=== PATIENT | female | born 1980 | race Caucasian/White ===

== ENCOUNTER 2018-06-01 13:35 | Emergency (ER) | payer MEDICAID, SELFPAY ==
[2018-06-01 13:42] VITALS: BP 137/98; PULSE 97; RESP 97; TEMP 36.6; O2SAT 97
[2018-06-01] MEDS: Normal Saline 1,000 ML 1000 ML IV (14:04)
[2018-06-01] MEDS: Ketorolac 30 MG/ML VIAL IM (14:07)
[2018-06-01 14:13] LABS: Abs Immature Grans 0.02 k/cumm (0.0-0.09); Absolute Basophil Count 0.04 k/cumm (0.0-0.2); Absolute Eosinophil Count 0.09 k/cumm (0.0-0.7); Absolute Lymphocyte Count 1.61 k/cumm (1.2-3.4); Absolute Monocyte Count 0.67 k/cumm (0.11-0.7); Absolute Neutrophil Count 7.42 k/cumm (1.2-6.7); Basophils % 0.4; Eosinophils % 0.9; HCT 34.5 % (36.0-46.0); Immature Grans % 0.2; Lymphocytes % 16.3; Mean Corp. HGB Concentration 31.9 g/dL (32.0-36.0); Mean Corpuscular Hemoglobin 24.7 pg (27.0-33.0); Mean Corpuscular Volume 77.5 fL (80-95); Mean Platelet Volume 9.9 fL (8.0-11.0); Monocytes % 6.8; Neutrophils % 75.4; Platelet Count 268 x1000/uL (130-400); RBC 4.45 m/cumm (4.00-5.20); RBC Distribution Width 12.6 % (11.7-14.6); White Blood Cell Count 9.85 k/cumm (4.4-10.8)
--- NOTE | 2018-06-01 14:16 | NUR.NOTE ---
Nursing Note:Pt off unit to CT. IV established. ambulated without difficulty. reports severe neck pain, mild nausea. medicated with toradol. will continue to monitor.
--- NOTE | 2018-06-01 14:22 | DI.CT_ITS ---
SYMPTOMS/DIAGNOSIS: SEVERE MIDLINE NECK PAIN AND HEADACHE S/P FALL [address] C-SPINE CT: CRANIAL CT: The study was carried out at 2:15 p.m. on 06/01/2018. The noncontrast enhanced cranial CT reveals no evidence of an intra/extra-axial hemorrhage, fluid collection, mass or edema. The ventricles are normal. The midline is preserved. The alatorre-white matter differentiation is intact throughout the brain. There is no evidence of a skull fracture. No sinus or mastoid air cell pathology is evident. SUMMARY: No evidence of acute intracranial abnormality. C-SPINE: The C-spine CT was carried out according to the usual protocol. There is straightening of the normal cervical lordosis. The vertebral bodies are intact. There is no evidence of gross disc space narrowing. There is no evidence of a fracture or subluxation. The posterior elements and facet joints are intact. The neural canal is widely patent throughout. The odontoid is intact and is closely applied to the anterior arch of C1. The prevertebral soft tissues are unremarkable. SUMMARY: No evidence of an acute fracture or subluxation. There is straightening of the normal cervical lordosis, which may be seen in muscular spasm.
[2018-06-01 14:26] LABS: ALT 19 U/L (12-78); AST 13 U/L (15-37); Albumin 3.9 g/dL (3.4-5.0); Alkaline Phosphatase 66 U/L (46-116); Anion Gap 7.9 mmol/L (3-11); BUN 14 mg/dL (7-18); Bilirubin, Total 0.3 mg/dL (0.2-1.0); CO2 28.1 mmol/L (21.0-32.0); CREATININE 0.69 mg/dL (0.55-1.02); Calcium 8.8 mg/dL (8.5-10.1); Chloride 101 mmol/L (98-107); Glucose 86 mg/dL (70-100); Potassium 3.5 mmol/L (3.5-5.1); Sodium 137 mmol/L (136-145); Total Protein 7.6 g/dL (6.4-8.2)
--- NOTE | 2018-06-01 14:29 | W.ED.GENAD ---
Discharge Plan Disposition Patient Disposition: HOME Condition: Good Discharge Details Chief Complaint: GenMedical Clinical Impression: Meningitis, viral, Headache, URI (upper respiratory infection) Primary Care Provider: Radha Mike ED Provider: [place] Stroud Home Meds and New Rx's Prescriptions: New acetaminophen [Mapap Extra Strength] 500 MG tablet 1,000 mg PO Q6H 5 Days Qty: 60 RF: 0 ibuprofen [Motrin IB] 200 MG tablet 600 mg PO Q6H 5 Days Qty: 60 RF: 0 cyclobenzaprine 5 mg tablet 5 mg PO TID PRN (Reason: muscle spasm) Qty: 16 RF: 0 Discharge Instructions Instructions: Viral Syndrome (ED), General Headache (ED) Additional Instructions: Please drink 10-12 cups of water per day. Please take Tylenol Motrin as needed for the pain. Please use a heating pad for your neck pain. If you notice any change or worsening in your symptoms please have a low threshold for return for reevaluation .if you notice any worsening of your symptoms, or any new symptoms such as vomiting, diarrhea, fever, chills, shortness of breath, chest pain, numbness, weakness, or fainting , please return immediately to the emergency department for reevaluation. Please follow up with your primary care provider as soon as possible for reassessment and reevaluation. As always, it was a pleasure participating in your medical care today. Referrals: Radha iMke [Primary Care Provider] - Discharge Data Discharge Date/Time-TO BE ENTERED AT DEPARTURE: 06/01/18 17:51 Medical Decision Making This is a 37-year-old female with past medical history of kidney stones who presents today for evaluation of neck pain and upper respiratory infection symptoms. Symptoms have been present for the last 4 days for her URI symptoms however her neck pain started 3 days ago. She did have a fall a week ago but none of her pain or symptoms began until after the URI symptoms started. Physical exam demonstrates concerning nuchal tenderness, and some mild neck stiffness. There are no skin lesions suggestive of meningococcemia. She is afebrile. Because of her fall we will get a CT of the head to rule out any acute bleed or fracture as the initial cause of her symptoms. However my differential is certainly high risk for meningitis with bacterial versus viral, more likely viral. We will rehydrate, control her pain, and perform a lumbar puncture for further evaluation. 4:[address] scan result was relayed to me by the radiologist that there is no acute process of the CT head or neck. Patient's laboratory workup demonstrates no significant white count, and her remaining labs are otherwise benign. However the patient had persistent pain after the Toradol, and fluids. We did elect to perform the lumbar puncture. Lumbar puncture was performed without complication or incident. Pending results now. 7:00 PM Lumbar puncture results have returned, Tube 1 demonstrated 1 WBC and 0 RBCs. Glucose was within normal limits, protein was within normal limits. Cultures will be sent. CSF fluid results are consistent with bacterial or fungal meningitis. Questionable mild versus minimal viral meningitis. As noted in the procedure note for the LP there was a small amount of blood which I feel is most likely secondary to an iatrogenic cause and atraumatic component of the lumbar puncture. It is also clinically inconsistent with a subarachnoid hemorrhage as there are 0 RBCs in the initial tube, and xanthochromia is negative. Additionally I feel that a sub-arachnoid hemorrhage is clinically inconsistent with the patient's current clinical picture as she has had a notable improvement of her headache with NSAIDs, and she no longer shows significant neck stiffness. In addition to this the patient CT scan is negative for any signs of acute bleed or other significant abnormality. Tube 4 also demonstrates 1525 RBCs to 6 WBCs, which would be a ratio clinically inconsistent with bacterial meningitis per recent literature. Patient's WBC count demonstrates no elevation, no evidence of bandemia, electrolytes are normal, renal function is normal. On reevaluation the patient's neck stiffness and headache is notably improved. I feel that her symptoms are most likely multifactorial. I do feel that she is suffering from an upper respiratory infection, most likely viral in nature especially with the reassuring WBC count, no evidence of bandemia in conjunction with being afebrile and having no tachycardia. The neck stiffness and mild headache that she has feeling may be secondary to this viral illness, versus a very mild subclinical viral meningitis, versus muscle spasms secondary to dehydration and illness. The patient is not on any control. She shows no neurologic deficits, and her signs and symptoms at this time are clinically inconsistent with a dural venous sinus thrombosis. She has no significant or severe facial pressure, facial pain, and the headache although present is not severe or debilitating. With a reassuring laboratory workup, reassuring vital signs, reassuring clinical picture at this time I feel that she can be safely discharged home with very close follow-up, a low threshold for return if her symptoms worsen or change, and instructions for Tylenol, Motrin, hydration, heating pad and a mild muscle relaxant for her neck spasm. I have extensively reviewed the treatment plan and discharge instructions with the patient and their family. I have addressed all patient concerns at this time. The patient and family was made aware of what symptoms to monitor for that would warrant a return to the emergency department. Discussed the plan with the patient and family, they demonstrate verbal understanding and agreement with our assessment and plan at this time. CRANIAL CT: The study was carried out at 2:15 p.m. on 06/01/2018. The noncontrast enhanced cranial CT reveals no evidence of an intra/extra-axial hemorrhage, fluid collection, mass or edema. The ventricles are normal. The midline is preserved. The alatorre-white matter differentiation is intact throughout the brain. There is no evidence of a skull fracture. No sinus or mastoid air cell pathology is evident. SUMMARY: No evidence of acute intracranial abnormality. C-SPINE: The C-spine CT was carried out according to the usual protocol. There is straightening of the normal cervical lordosis. The vertebral bodies are intact. There is no evidence of gross disc space narrowing. There is no evidence of a fracture or subluxation. The posterior elements and facet joints are intact. The neural canal is widely patent throughout. The odontoid is intact and is closely applied to the anterior arch of C1. The prevertebral soft tissues are unremarkable. SUMMARY: No evidence of an acute fracture or subluxation. There is straightening of the normal cervical lordosis, which may be seen in muscular spasm. Procedure: Lumbar Puncture Indication: Altered Mental Status/Headache A time-out was completed verifying correct patient, procedure, site, positioning, and special equipment if applicable. The patient was placed in the LEFT lateral decubitus position in a semi- position with help from the nursing staff. The area was cleansed and draped in usual sterile fashion. 1% lidocaine was used anesthetize the surrounding skin area. A 20-gauge 3.5-inch spinal needle was placed in the L4-L5 interspace. Clear cerebral spinal fluid was obtained. Four tubes were filled with 4 mL of CSF. These were sent for the usual tests, including 1 tube to be held for further analysis if needed. Of note the first 3 tubes showed no evidence of blood, however when the fourth tube was being filled the flow slowly decreased and eventually stopped before 1 mL was acquired. The needle was then rotated 25 degrees in a counterclockwise fashion, and an effort to obtain additional CSF. Unfortunately when this occurred a very small amount of blood tinge was noted in the CSF fluid. I feel that this is most likely iatrogenic. Estimated Blood Loss: <1ml The patient tolerated the procedure well and there were no complications. HPI General Date/Time Provider Initiated Documentation: 06/01/18 13:36. HPI Narrative: This is a pleasant 37-year-old female with no significant past medical history except for multiple kidney stones who presents today with severe headache, neck pain and stiffness, cough, and upper respiratory symptoms for the last 4 days. She denies any fever but does admit to occasional chills. She states that one week ago she did fall and hit her head but had no significant pain or neck stiffness after that. Her neck pain began 3 days ago which was 1 day after her upper respiratory infection symptoms started. She does admit to a runny nose, cough is nonproductive. She denies any hemoptysis, shortness of breath, or significant chest pain. She denies any numbness tingling or weakness. She denies any vision changes. Her headache she states is mild to moderate in nature. Symptoms are made worse with movement of the neck and walking. Improved by nothing. Patient denies any IV or illicit drug use. She denies any other modifying factors. Related Data Home Medications Medication Instructions Recorded Confirmed acetaminophen [Mapap Extra 1,000 mg PO Q6H 5 Days #60 tab 06/01/18 Strength] cyclobenzaprine 5 mg PO TID PRN #16 tab 06/01/18 ibuprofen [Motrin Ib] 600 mg PO Q6H 5 Days #60 tab 06/01/18 Previous Rx's Medication Instructions Recorded acetaminophen [Mapap Extra 1,000 mg PO Q6H 5 Days #60 tab 06/01/18 Strength] cyclobenzaprine 5 mg PO TID PRN #16 tab 06/01/18 ibuprofen [Motrin Ib] 600 mg PO Q6H 5 Days #60 tab 06/01/18 Allergies Allergy/AdvReac Type Severity Reaction Status Date / Time morphine Allergy Severe Difficulty Unverified 03/21/17 09:21 Breathing, Hives oxycodone Allergy Itching Unverified 06/01/18 13:47 oxybutynin AdvReac Severe STOPPED Unverified 03/21/17 09:25 ME FROM URINATING tramadol AdvReac Intermediate BRUISES Unverified 03/21/17 09:25 UNDER SKIN General Stated Complaint: GenMedical CIRO: 2 Review of Systems Review of Systems All systems reviewed & are unremarkable except as noted in HPI and below PFSH Social History Smoking/Tobacco Use Status: Never Exam Narrative Exam Narrative: 1.Const: Well-nourished, Well-developed, appearing stated age 2.Eyes: PERRL, no conjunctival injection, and symmetrical lids. No evidence of facial or periorbital swelling. 3.ENT: Atraumatic external nose and ears. Moist MM. Neck: Symmetric, trachea midline, No thyromegaly. Notable neck stiffness, pain at the occiput. Worse when jumping or dropping on her heels. Pain with flexion. No midline cervical tenderness. No anterior cervical lymphadenopathy. No significant erythema in the posterior oropharynx. Negative Kernig's and Brudzinski's. 4.CVS: +S1/S2, No murmurs or gallops. Peripheral pulses 2+ and equal in all extremities. Brisk capillary refill in all extremities. 5.RESP: Unlabored respiratory effort. Clear to auscultation bilaterally. No wheezes rales or rhonchi 6.GI: Soft, Nontender/Nondistended, No hepatosplenomegaly. No guarding or rebound. 7.MSK: Normocephalic/Atraumatic, Extremities w/o deformity or ttp No cyanosis or clubbing, Normal movement of all extremities 8.Skin: Warm, Dry. No rashes or lesions. 9.Neuro: well surveying engineer II-XII grossly intact. Sensation grossly intact, no focal neurologic deficits. All 6 cardinal planes of vision are fully intact. No evidence of rotatory or vertical nystagmus. The patient demonstrated a normal restgm-dmeo-gljkak, good dexterity. There was no evidence of dysdiadochokinesia. Patient was able to ambulate without difficulty. There was no wide-based gait. Romberg, and axyz-jb-aewh are both normal on testing. Sensation was intact bilaterally as well as muscle strength bilaterally for all extremities. Patient was able to verbalize butter cup with no slurring, or miss pronunciation. 10.Psych: (AAO) x3. Appropriate mood and affect Course Vital Signs Temperature 36.6 C 06/01/18 13:42 Pulse 97 H 06/01/18 13:42 Respiratory Rate 97 H 06/01/18 13:42 Blood Pressure 137/98 H 06/01/18 13:42 Pulse Oximetry 97 06/01/18 13:42 Temperature 36.6 C 06/01/18 13:42 Pulse 97 H 06/01/18 13:42 Respiratory Rate 97 H 06/01/18 13:42 Respiratory Effort Non-Labored 06/01/18 14:15 Blood Pressure 137/98 H 06/01/18 13:42 Blood Pressure Position Sitting 06/01/18 13:42 Pulse Oximetry 97 06/01/18 13:42 Oxygen Delivery Method Room Air 06/01/18 13:42 Oxygen Flow Rate 0 06/01/18 13:42 Pain Level 10 06/01/18 13:42 Lab/Test Results Lab/Test Results: 06/01/18 13:53 Nasopharynx Influenza Types A,B Antigen - Final 06/01/18 13:53 Pharynx Streptococcus Screen (LIVE) - Pending Laboratory Tests Range/Units 06/01/18 06/01/18 14:00 14:00 WBC (4.4-10.8) k/cumm 9.85 RBC (4.00-5.20) m/cumm 4.45 Hgb (12.0-15.5) g/dL 11.0 L Hct (36.0-46.0) % 34.5 L MCV (80-95) fL 77.5 L MCH (27.0-33.0) pg 24.7 L MCHC (32.0-36.0) g/dL 31.9 L RDW (11.7-14.6) % 12.6 Plt Count (130-400) x1000/uL 268 MPV (8.0-11.0) fL 9.9 Immature Gran % 0.2 Neutrophils % 75.4 Lymphocytes % 16.3 Monocytes % 6.8 Eosinophils % 0.9 Basophils % 0.4 Absolute Neutrophils (1.2-6.7) k/cumm 7.42 H Absolute Lymphocytes (1.2-3.4) k/cumm 1.61 Absolute Monocytes (0.11-0.7) k/cumm 0.67 Absolute Eosinophils (0.0-0.7) k/cumm 0.09 Absolute Basophils (0.0-0.2) k/cumm 0.04 Sodium (136-145) mmol/L 137 Potassium (3.5-5.1) mmol/L 3.5 Chloride (98-107) mmol/L 101 Carbon Dioxide (21.0-32.0) mmol/L 28.1 Anion Gap (3-11) mmol/L 7.9 BUN (7-18) mg/dL 14 Creatinine (0.55-1.02) mg/dL 0.69 Estimated GFR/1.73 m2 (mL/min/1.73m2) >= 60.00 Glucose (70-100) mg/dL 86 Calcium (8.5-10.1) mg/dL 8.8 Total Bilirubin (0.2-1.0) mg/dL 0.3 AST (15-37) U/L 13 L ALT (12-78) U/L 19 Alkaline Phosphatase (46-116) U/L 66 Total Protein (6.4-8.2) g/dL 7.6 Albumin (3.4-5.0) g/dL 3.9 POC Strep Test-NAA(Rapid) Start: 06/01/18 13:47 Freq: .Rapid Strep Test Status: Active Protocol: Document 06/01/18 14:03 [facility] (Rec: 06/01/18 14:03 [facility] [id number]) Strep test-NAA(Rapid)-POC POC-Strep test-NAA (Rapid) Negative POC-Strep test-NAA (Rapid) Negative
--- NOTE | 2018-06-01 15:57 | NUR.NOTE ---
Nursing Note: Assisted MD Stroud with LP procedure. patient tolerated well. Pt in no acute distress. will continue to monitor.
[2018-06-01 16:05] LABS: Glucose (CSF) 54 mg/dL (40-70); Total Protein (CSF) 35 mg/dL (15-45)
[2018-06-01 16:44] LABS: Clarity Clear; WBC 6 /mm3 (0-5); Xanthochromia Absent
[2018-06-01 16:45] LABS: Differential CSF: Performed; Neutrophils CSF 65 % (0-2); RBC 1525 /mm3 (0-5); Tube # 4
[2018-06-01 16:46] LABS: Lymphocytes CSF 32 % (63-99); Monocyte/Macrophage CSF 3 % (3-37)
[2018-06-01 16:48] LABS: RBC Tube#1 CSF 0 /mm3 (0-5)
[2018-06-01 17:50] VITALS: BP 129/84; PULSE 90; RESP 18; TEMP 36.9; O2SAT 99
== END 2018-06-01 17:51 | disposition home or self-care (01) ==
PROVIDERS: Emergency Provider Student in an Organized Health Care Education/Training Program; PCP Nurse Practitioner Family
DX: A87.9 Viral meningitis, unspecified (principal); J06.9 Acute upper respiratory infection, unspecified; S09.90XA Unspecified injury of head, initial encounter; W01.10XA Fall on same level from slipping, tripping and stumbling with subsequent striking against unspecified object, initial encounter
CPT/HCPCS: 36415; 62270; 80053; 82945; 87449; 87880; 89050; 89051; 96360; 96372; 99285; 70450; 72125; 84157; 85025; 87070; 87081; 87205; 99284; J1885

== ENCOUNTER 2018-06-11 21:24 | Outpatient (REF) | payer MEDICAID, SELFPAY ==
[2018-06-11 21:46] LABS: Iron 17 ug/dL (50-175); Total Iron Binding Capacity 467 ug/dL (250-450); Transferrin Sat 4 % (15-50)
[2018-06-11 22:00] LABS: Ferritin 6 ng/mL (8-388)
== END 2018-06-11 21:44 ==
LOC: NCHCN 21:24
PROVIDERS: PCP Nurse Practitioner Family; Visit Provider Nurse Practitioner Family
DX: R01.1 Cardiac murmur, unspecified (principal); R51 Headache; D50.9 Iron deficiency anemia, unspecified; R55 Syncope and collapse; L40.9 Psoriasis, unspecified
CPT/HCPCS: 82728; 83540; 83550

== ENCOUNTER 2018-07-16 14:28 | Outpatient (CLI) | payer MEDICAID, SELFPAY ==
[2018-07-16 14:53] LABS: Abs Immature Grans 0.02 k/cumm (0.0-0.09); Absolute Basophil Count 0.04 k/cumm (0.0-0.2); Absolute Eosinophil Count 0.05 k/cumm (0.0-0.7); Absolute Lymphocyte Count 1.62 k/cumm (1.2-3.4); Absolute Monocyte Count 0.52 k/cumm (0.11-0.7); Absolute Neutrophil Count 3.73 k/cumm (1.2-6.7); Basophils % 0.7; Eosinophils % 0.8; HGB 11.1 g/dL (12.0-15.5); Immature Grans % 0.3; Lymphocytes % 27.1; Mean Corp. HGB Concentration 30.8 g/dL (32.0-36.0); Mean Corpuscular Hemoglobin 22.6 pg (27.0-33.0); Mean Corpuscular Volume 73.2 fL (80-95); Mean Platelet Volume 10.3 fL (8.0-11.0); Monocytes % 8.7; Neutrophils % 62.4; Platelet Count 249 x1000/uL (130-400); RBC 4.92 m/cumm (4.00-5.20); White Blood Cell Count 5.98 k/cumm (4.4-10.8)
[2018-07-16 15:18] LABS: Diff Comment RBC Morph Reviewed; Microcytosis 1+
[2018-07-16 15:19] LABS: Poikilocytes 1+
[2018-07-16 15:50] LABS: Iron 16 ug/dL (50-175); Total Iron Binding Capacity 497 ug/dL (250-450); Transferrin Sat 3 % (15-50)
[2018-07-16 16:12] LABS: BUN 8 mg/dL (7-18); CREATININE 0.76 mg/dL (0.55-1.02); Calcium 9.3 mg/dL (8.5-10.1); Chloride 104 mmol/L (98-107); Ferritin 6 ng/mL (8-388); Glucose 88 mg/dL (70-100); Potassium 3.7 mmol/L (3.5-5.1); Sodium 141 mmol/L (136-145)
[2018-07-16 16:23] LABS: D-Dimer 246 ng/mlFEU (<500)
[2018-07-16 16:38] LABS: NT-proBNP 47 pg/mL
== END 2018-07-16 14:48 ==
PROVIDERS: PCP Nurse Practitioner Family; Visit Provider Nurse Practitioner Family
DX: D50.9 Iron deficiency anemia, unspecified (principal); R06.02 Shortness of breath; R06.01 Orthopnea; R51 Headache; K30 Functional dyspepsia; F41.8 Other specified anxiety disorders; R55 Syncope and collapse; L40.9 Psoriasis, unspecified
CPT/HCPCS: 36415; 80048; 82728; 83540; 83550; 83880; 85025; 85379

== ENCOUNTER 2018-08-16 14:38 | Outpatient (REF) | payer MEDICAID, SELFPAY ==
[2018-08-16 21:34] LABS: HCT 36.3 % (36.0-46.0); HGB 11.1 g/dL (12.0-15.5); Mean Corp. HGB Concentration 30.6 g/dL (32.0-36.0); Mean Corpuscular Hemoglobin 22.4 pg (27.0-33.0); Mean Corpuscular Volume 73.3 fL (80-95); Mean Platelet Volume 11.2 fL (8.0-11.0); Platelet Count 274 x1000/uL (130-400); RBC 4.95 m/cumm (4.00-5.20); RBC Distribution Width 16.4 % (11.7-14.6); White Blood Cell Count 7.64 k/cumm (4.4-10.8)
[2018-08-16 21:48] LABS: Iron 31 ug/dL (50-175); Total Iron Binding Capacity 458 ug/dL (250-450); Transferrin Sat 7 % (15-50)
[2018-08-16 22:20] LABS: Ferritin 7 ng/mL (8-388)
== END 2018-08-16 14:58 ==
LOC: NCHCN 14:38
PROVIDERS: PCP Nurse Practitioner Family; Visit Provider Nurse Practitioner Family
DX: F50.9 Eating disorder, unspecified (principal); K30 Functional dyspepsia; R06.02 Shortness of breath; R51 Headache; R00.2 Palpitations; R55 Syncope and collapse
CPT/HCPCS: 85027; 82728; 83540; 83550

== ENCOUNTER 2020-01-03 17:56 | Outpatient (REF) | payer MEDICAID, SELFPAY ==
[2020-01-03 21:34] LABS: Abs Immature Grans 0.01 10^3/uL (0.0-0.06); Absolute Basophil Count 0.07 10^3/uL (0.0-0.2); Absolute Eosinophil Count 0.05 10^3/uL (0.0-0.7); Absolute Lymphocyte Count 1.53 10^3/uL (1.2-3.4); Absolute Monocyte Count 0.31 10^3/uL (0.1-0.8); Absolute Neutrophil Count 3.33 10^3/uL (1.2-6.7); Basophils % 1.3; Eosinophils % 0.9; HGB 8.4 g/dL (11.2-15.7); Immature Grans % 0.2; Lymphocytes % 28.9; MCH 19.8 pg (27.0-33.0); MCV 68.4 fL (80-95); MPV 10.2 fL (8.0-11.0); Monocytes % 5.8; Neutrophils % 62.9; Platelet Count 392 10^3/uL (130-400); RBC 4.24 10^6/uL (3.93-5.22); RDW 15.4 % (11.7-14.6); Reticulocyte 0.7 % (0.5-2.4)
[2020-01-03 22:05] LABS: Ferritin 4 ng/mL (8-252)
[2020-01-03 22:07] LABS: Iron 12 ug/dL (50-170); Total Iron Binding Capacity 454 ug/dL (250-450); Transferrin Sat 3 % (15-50)
== END 2020-01-03 18:16 ==
LOC: NCHCN 17:56
PROVIDERS: PCP Nurse Practitioner Family; Visit Provider Physician Assistant
DX: D50.9 Iron deficiency anemia, unspecified (principal); E04.9 Nontoxic goiter, unspecified; R13.10 Dysphagia, unspecified
CPT/HCPCS: 82728; 83540; 83550; 85025; 85045

== ENCOUNTER 2020-03-30 14:32 | Outpatient (REF) | payer MEDICAID, SELFPAY ==
[2020-03-30 20:59] LABS: Abs Immature Grans 0.01 10^3/uL (0.0-0.06); Absolute Basophil Count 0.05 10^3/uL (0.0-0.2); Absolute Eosinophil Count 0.04 10^3/uL (0.0-0.7); Absolute Lymphocyte Count 1.67 10^3/uL (1.2-3.4); Absolute Monocyte Count 0.28 10^3/uL (0.1-0.8); Absolute Neutrophil Count 3.24 10^3/uL (1.2-6.7); Basophils % 0.9; Eosinophils % 0.8; HGB 8.5 g/dL (11.2-15.7); Immature Grans % 0.2; Lymphocytes % 31.6; MCH 19.1 pg (27.0-33.0); MCHC 28.3 % (32.0-36.0); MCV 67.4 fL (80-95); MPV 10.2 fL (8.0-11.0); Monocytes % 5.3; Neutrophils % 61.2; Nucleated RBC 0 %; Platelet Count 393 10^3/uL (130-400); RBC 4.45 10^6/uL (3.93-5.22); RDW 16.7 % (11.7-14.6); RDW-SD 39.7 fL; Reticulocyte 0.9 % (0.5-2.4); WBC 5.29 10^3/uL (4.4-10.8)
[2020-03-30 21:16] LABS: Diff Comment RBC Morph Reviewed
[2020-03-30 21:18] LABS: Hypochromasia 1+; Microcytosis 2+; Poikilocytes 1+
[2020-03-30 21:24] LABS: ALT 21 U/L (14-59); AST 13 U/L (15-37); Albumin 4.2 g/dL (3.4-5.0); Alkaline Phosphatase 56 U/L (46-116); Anion Gap 7.7 mmol/L (3-11); BUN 10 mg/dL (7-18); Bilirubin, Total 0.3 mg/dL (0.2-1.0); CO2 27.3 mmol/L (21.0-32.0); CREATININE 0.71 mg/dL (0.55-1.02); Chloride 104 mmol/L (98-107); Glucose 75 mg/dL (74-106); Potassium 3.9 mmol/L (3.5-5.1); Sodium 139 mmol/L (136-145); Total Protein 7.3 g/dL (6.4-8.2)
[2020-03-30 21:41] LABS: Iron 10 ug/dL (50-170); Total Iron Binding Capacity 458 ug/dL (250-450); Transferrin Sat 2 % (15-50)
[2020-04-01 09:53] LABS: Transferrin 361 mg/dL (201-352)
== END 2020-03-30 14:52 ==
LOC: NCHCN 14:32
PROVIDERS: PCP Nurse Practitioner Family; Visit Provider Nurse Practitioner Family
DX: D50.9 Iron deficiency anemia, unspecified (principal); N92.0 Excessive and frequent menstruation with regular cycle; R13.10 Dysphagia, unspecified; F41.8 Other specified anxiety disorders
CPT/HCPCS: 80053; 83540; 83550; 84466; 85025; 85045

== ENCOUNTER 2020-04-24 02:47 | Outpatient (CLI) | payer MEDICAID, SELFPAY ==
[2020-04-24 17:09] LABS: Prothrombin Time 10.5 sec (9.3-11.0)
[2020-04-24 17:10] LABS: Abs Immature Grans 0.01 10^3/uL (0.0-0.06); Absolute Basophil Count 0.05 10^3/uL (0.0-0.2); Absolute Eosinophil Count 0.06 10^3/uL (0.0-0.7); Absolute Lymphocyte Count 1.79 10^3/uL (1.2-3.4); Absolute Monocyte Count 0.46 10^3/uL (0.1-0.8); Absolute Neutrophil Count 4.16 10^3/uL (1.2-6.7); Basophils % 0.8; Eosinophils % 0.9; HCT 28.8 % (36.0-46.0); Immature Grans % 0.2; Lymphocytes % 27.4; MCH 18.1 pg (27.0-33.0); MCHC 27.8 % (32.0-36.0); MCV 65.2 fL (80-95); MPV 9.6 fL (8.0-11.0); Neutrophils % 63.7; Nucleated RBC 0 %; Platelet Count 293 10^3/uL (130-400); RBC 4.42 10^6/uL (3.93-5.22); RDW 16.6 % (11.7-14.6); RDW-SD 38.3 fL; Reticulocyte 0.9 % (0.5-2.4); WBC 6.53 10^3/uL (4.4-10.8)
[2020-04-24 17:46] LABS: Diff Comment RBC Morph Reviewed
[2020-04-24 17:47] LABS: Anisocytosis 1+; Hypochromasia 3+; Microcytosis 3+; Polychromasia Present
[2020-04-24 17:48] LABS: Poikilocytes 1+
[2020-04-24 18:40] LABS: Iron 7 ug/dL (50-170); Total Iron Binding Capacity 467 ug/dL (250-450); Transferrin Sat 1 % (15-50)
[2020-04-24 18:57] LABS: ALT 15 U/L (14-59); AST 11 U/L (15-37); Albumin 4.2 g/dL (3.4-5.0); Alkaline Phosphatase 51 U/L (46-116); Anion Gap 8.8 mmol/L (3-11); BUN 13 mg/dL (7-18); Bilirubin, Total 0.3 mg/dL (0.2-1.0); CO2 26.2 mmol/L (21.0-32.0); CREATININE 0.77 mg/dL (0.55-1.02); Calcium 9.2 mg/dL (8.5-10.1); Chloride 104 mmol/L (98-107); Glucose 71 mg/dL (74-106); Potassium 3.8 mmol/L (3.5-5.1); Sodium 139 mmol/L (136-145); TSH 0.42 uIU/mL (0.36-3.74); Total Protein 7.1 g/dL (6.4-8.2)
[2020-04-24 19:35] LABS: Ferritin 3 ng/mL (8-252); Folate 7.7 ng/mL (8.6-20.0); Vitamin B12 293 pg/mL (193-986)
== END 2020-04-24 03:07 ==
PROVIDERS: PCP Nurse Practitioner Family; Visit Provider Internal Medicine Medical Oncology
DX: D64.9 Anemia, unspecified (principal)
CPT/HCPCS: 36415; 80053; 82607; 82728; 82746; 83540; 83550; 84443; 85025; 85045; 85610; 85730

== ENCOUNTER 2020-06-08 11:38 | Outpatient (CLI) | payer MEDICAID, SELFPAY ==
[2020-06-08 14:29] LABS: Abs Immature Grans 0.01 10^3/uL (0.0-0.06); Absolute Basophil Count 0.03 10^3/uL (0.0-0.2); Absolute Eosinophil Count 0.06 10^3/uL (0.0-0.7); Absolute Monocyte Count 0.31 10^3/uL (0.1-0.8); Absolute Neutrophil Count 3.58 10^3/uL (1.2-6.7); Basophils % 0.5; HCT 37.7 % (36.0-46.0); HGB 11.3 g/dL (11.2-15.7); Immature Grans % 0.2; Lymphocytes % 32.3; MCH 22.8 pg (27.0-33.0); MPV 9.9 fL (8.0-11.0); Monocytes % 5.3; Neutrophils % 60.7; Nucleated RBC 0 %; Platelet Count 227 10^3/uL (130-400); RBC 4.96 10^6/uL (3.93-5.22); RDW 26.2 % (11.7-14.6); RDW-SD 67.2 fL; Reticulocyte 0.6 % (0.5-2.4); WBC 5.89 10^3/uL (4.4-10.8)
[2020-06-08 14:54] LABS: Diff Comment RBC Morph Reviewed
[2020-06-08 14:55] LABS: Anisocytosis 3+; Hypochromasia 2+; Microcytosis 2+; Ovalocytes 2+
[2020-06-08 14:56] LABS: Poikilocytes 1+
[2020-06-08 15:02] LABS: Iron 47 ug/dL (50-170); Total Iron Binding Capacity 329 ug/dL (250-450); Transferrin Sat 14 % (15-50)
[2020-06-08 15:29] LABS: Ferritin 89 ng/mL (8-252); Folate 13.9 ng/mL (8.6-20.0); Vitamin B12 292 pg/mL (193-986)
[2020-06-09 09:39] LABS: IgA 228 mg/dL (85-499)
[2020-06-09 22:16] LABS: Tissue Transglutaminase Ab IgA <1.2 U/mL
[2020-06-11 11:02] LABS: Methylmalonic Acid 0.31 nmol/mL (<=0.40)
== END 2020-06-08 11:58 ==
PROVIDERS: PCP Nurse Practitioner Family; Visit Provider Internal Medicine Medical Oncology
DX: D50.0 Iron deficiency anemia secondary to blood loss (chronic) (principal); E53.8 Deficiency of other specified B group vitamins; R53.83 Other fatigue
CPT/HCPCS: 36415; 80186; 82784; 82607; 82728; 82746; 83516; 83540; 83550; 85025; 85045

== ENCOUNTER 2020-07-13 03:29 | Outpatient (CLI) | payer MEDICAID, SELFPAY ==
[2020-07-13 08:51] LABS: Abs Immature Grans 0.01 10^3/uL (0.0-0.06); Absolute Basophil Count 0.03 10^3/uL (0.0-0.2); Absolute Eosinophil Count 0.04 10^3/uL (0.0-0.7); Absolute Monocyte Count 0.32 10^3/uL (0.1-0.8); Absolute Neutrophil Count 2.57 10^3/uL (1.2-6.7); Basophils % 0.7; Eosinophils % 0.9; HCT 39.7 % (36.0-46.0); Immature Grans % 0.2; Lymphocytes % 33.6; MCH 25.8 pg (27.0-33.0); MCHC 32.7 % (32.0-36.0); MCV 78.9 fL (80-95); MPV 9.5 fL (8.0-11.0); Monocytes % 7.2; Neutrophils % 57.4; Nucleated RBC 0 %; RBC 5.03 10^6/uL (3.93-5.22); RDW 22.5 % (11.7-14.6); RDW-SD 61.4 fL; WBC 4.47 10^3/uL (4.4-10.8)
[2020-07-13 09:04] LABS: Anisocytosis 1+; Diff Comment RBC Morph Reviewed; Hypochromasia 1+; Microcytosis 1+; Platelet Count 171 10^3/uL (130-400)
[2020-07-13 09:05] LABS: Poikilocytes 1+
[2020-07-13 09:07] LABS: Iron 57 ug/dL (50-170); Total Iron Binding Capacity 303 ug/dL (250-450); Transferrin Sat 19 % (15-50)
[2020-07-13 09:18] LABS: Ferritin 78 ng/mL (8-252); Folate 8.8 ng/mL (8.6-20.0)
== END 2020-07-13 03:30 | disposition home or self-care (01) ==
LOC: LBO 03:29
PROVIDERS: PCP Nurse Practitioner Family; Visit Provider Internal Medicine Medical Oncology
DX: D50.0 Iron deficiency anemia secondary to blood loss (chronic) (principal)
CPT/HCPCS: 36415; 82728; 82746; 83540; 83550; 85025; 85045

== ENCOUNTER 2020-10-24 16:32 | Emergency (ER) | payer MEDICAID, SELFPAY ==
[2020-10-24 16:38] VITALS: BP 138/81; PULSE 96; RESP 18; TEMP 36.7; O2SAT 99
[2020-10-24 16:44] LABS: Bilirubin Negative (Negative); Blood Large (Negative); Clarity Sl Cloudy (Clear); Glucose Negative (Negative); Ketones Negative (Negative); Leukocyte Esterase Negative (Negative); Nitrite Negative (Negative); Specific Gravity 1.025 (1.005-1.025); Urobilinogen 0.2 EU/dL (Up TO 0.2)
--- NOTE | 2020-10-24 16:46 | W.ED.GENAD ---
Discharge Plan Disposition Patient Disposition: HOME Condition: Stable Discharge Details Clinical Impression: Bilateral kidney stones, Cyst of right kidney Primary Care Provider: Radha Mike ED Provider: Blanca Perla Home Meds and New Rx's Prescriptions: New tamsulosin 0.4 mg capsule 0.4 mg PO DAILY Qty: 10 RF: 0 ketorolac 10 mg tablet 10 mg PO TID PRN (Reason: pain) 3 Days Qty: 9 RF: 0 Discharge Instructions Instructions: Kidney Stones (ED), How to Strain Your Urine (ED) Additional Instructions: Strain all urine. A referral was placed for follow-up with urology within 3 to 5 days. Please return to the ED for any fever, decreased urination, worsening pain not relieved by medication or any concerns. I did send a prescription for ketorolac or Toradol to the pharmacy on file. If you would rather you may take ibuprofen instead do not take Toradol and ibuprofen together. The cyst on your right kidney is measuring 6.5 cm which needs to be followed up on. Follow up with primary care provider in 3-5 days. Return to ED sooner if any worsening or concerns. Increase oral fluids. Referrals: Radha Mike [Primary Care Provider] - Ephraim Lopez MD [ [facility] STAFF PHYSICIAN] - 5 days Discharge Data Discharge Date/Time-TO BE ENTERED AT DEPARTURE: 10/24/20 18:24 Medical Decision Making 40-year-old female presents to the ER with chief complaints of bilateral flank pain, she reports is worse on the left, hematuria for the last 2 to 3 days. She does have a past medical history of kidney stones, she has had stents placed in the past. She reports nausea no vomiting no diarrhea. She has been taking ibuprofen none today. CT renal colic ordered, labs to rule out infection and to evaluate kidney function. IMPRESSION: 1. There is left-sided hydronephrosis and hydroureter with 2 adjacent calculi in the mid to distal left ureter, each measuring 4 mm, series 5, image 42. There is associated perinephric/periureteral stranding which may be reactive but should be correlated with any concern for infection. Additional bilateral nonobstructive renal calculi are noted. 2. Cystic structure in the right kidney as described, which does not fulfill the criteria for a simple cyst. Comparison with older imaging studies, if available, would be beneficial. Nonemergent renal mass protocol CT scan or MRI (with and without contrast) would also be beneficial for further evaluation of complexity. 3. Urinary bladder wall prominence. This can be seen with infection or underdistention. 4. Superior aspect of the liver is incompletely imaged. Other findings/details as above. 1738: Spoke with Dr. Kellee Orellana with the rad radiologist she reports the 2 adjacent 4 mm mid to distal ureter stone with stranding as noted above in the report. She also relayed the right kidney cystic structure which is measuring 6.5 cm. Discussed these results with patient who was aware of a cystlike structure on her right kidney however it has never been measured that big. She verbalizes understanding. She does usually see urology at [facility] in [place] will give her a referral for urology follow-up here at [facility]. At this time she does not have any evidence for infection no leukocytes no nitrites in her urine no elevated white blood cell count. At this time I will forego antibiotics due to no signs of infection. Patient has received Toradol here in the department which improved her symptoms. We will send patient home with a strainer and a prescription for tamsulosin. Discuss strict return instructions, verbalized understanding. Patient was placed on the referral list for urology within 3-5 days for right kidney cyst and kidney stone. Discussed strict return instructions follow-up care patient verbalized understanding. This text was generated using Fanzteration system, please disregard any oddities of phrase or misspellings. HPI General Mode of arrival: ambulatory. Date/Time Provider Initiated Documentation: 10/24/20 16:38. Limitations to Documentation: no limitations. Information obtained by: patient. HPI Narrative: 40-year-old female presents to the ER with chief complaints of bilateral flank pain, she reports is worse on the left, hematuria for the last 2 to 3 days. She does have a past medical history of kidney stones, she has had stents placed in the past. She reports nausea no vomiting no diarrhea. She has been taking ibuprofen, none today. Related Data Home Medications Medication Instructions Recorded Confirmed ketorolac 10 mg PO TID PRN 3 Days #9 tab 10/24/20 tamsulosin 0.4 mg PO DAILY #10 cap 10/24/20 Previous Rx's Medication Instructions Recorded ketorolac 10 mg PO TID PRN 3 Days #9 tab 10/24/20 tamsulosin 0.4 mg PO DAILY #10 cap 10/24/20 Allergies Allergy/AdvReac Type Severity Reaction Status Date / Time morphine Allergy Severe Difficulty Unverified 10/24/20 16:43 Breathing, Hives oxycodone Allergy Itching Unverified 10/24/20 16:43 oxybutynin AdvReac Severe STOPPED Unverified 10/24/20 16:43 ME FROM URINATING tramadol AdvReac Intermediate BRUISES Unverified 10/24/20 16:43 UNDER SKIN General Stated Complaint: FlankPain CIRO: 3 Review of Systems Narrative: Constitutional: Negative for weight loss, alert and oriented, well groomed, normal body habitus, appears comfortable. HEENT: Denies trauma, headaches, blurry vision, nasal discharge, sore throat, trouble swallowing. Chest: Denies chest pain, palpitations, irregular rhythm, hypertension. Respiratory: Denies Shortness of breath, cough, hemoptysis. GI: Denies vomiting, diarrhea, constipation. : Denies dysuria, , rectal bleeding. Positive bilateral flank pain and hematuria. Neuro: Denies dizziness, blurry vision, weakness, syncope, headache or facial numbness. Hematologic: Denies easy bruising, intolerance to heat or cold, hair loss. [facility] Social History Smoking/Tobacco Use Status: Never Smoking risk assessment performed?: Yes Alcohol Intake: never Drug use: Never Substance use type: does not use Do you feel safe at home: Yes Do you feel safe in your relationship?: Yes Exam Narrative Exam Narrative: Constitutional: Alert and oriented x3. Appears stated age. Normal body habitus. Head: Normocephalic, no trauma. Eyes: Pupils PERRLA, Red reflex noted, EOM's intact. Eyelids symmetrical without lesions, discharge, or swelling. ENT: Bilateral TM's WNL, External ear normal to inspection, no mastoid TTP, swelling, or erythema, Nasal turbinates WNL, no nasal discharge. Normal dentition, Posterior pharynx WNL, no exudate. Chest: RRR, Normal S1, S2, distal pulses intact. Resp: Lungs clear to auscultation bilaterally, no wheezes, rales, or rhonchi. Abdomen: Soft, nondistended. Mild left lower quadrant abdominal pain. Bilateral CVA tenderness worse on the left. Musculoskeletal: Normal gait, 5/5 strength to all four extremities. Skin: No suspicious rashes or lesions. Capillary refill less than 2 sec. Neurologic: Cranial nerves II-XII intact. Alert and oriented x 3. DTR's intact. Hematologic/Lymphatic: No ecchymosis, no lymphadenopathy. Course Vital Signs Vital signs: Vital Signs Temperature 36.7 C 10/24/20 16:38 Pulse 96 H 10/24/20 16:38 Respiratory Rate 18 10/24/20 16:38 Blood Pressure 138/81 10/24/20 16:38 Pulse Oximetry 99 10/24/20 16:38 Temperature 36.7 C 10/24/20 16:38 Temperature Source Temporal Artery Scan 10/24/20 16:38 Pulse 96 H 10/24/20 16:38 Respiratory Rate 18 10/24/20 16:38 Respiratory Effort Non-Labored 10/24/20 16:44 Blood Pressure 138/81 10/24/20 16:38 Blood Pressure Position Sitting 10/24/20 16:38 Pulse Oximetry 99 10/24/20 16:38 Oxygen Delivery Method Room Air 10/24/20 16:38 Oxygen Flow Rate 0 10/24/20 16:38 Lab/Test Results Lab/Test Results: Laboratory Tests Range/Units 10/24/20 16:38 Urine Color (Yellow) Yellow Urine Clarity (Clear) Sl cloudy Urine pH (5-8) 6.0 Ur Specific [place] (1.005-1.025) 1.025 Urine Protein (Negative) mg/dL Trace H Urine Ketones (Negative) mg/dL Negative Urine Blood (Negative) Large H Urine Nitrite (Negative) Negative Urine Bilirubin (Negative) Negative Urine Urobilinogen (Up TO 0.2) EU/dL 0.2 Ur Leukocyte Esterase (Negative) Negative Urine Glucose (Negative) mg/dL Negative POC- Test(urine) Negative
[2020-10-24 16:52] LABS: Bacteria Negative HPF (Negative); C & S Indicated? No; Casts Negative LPF (Negative); Crystals Negative HPF (Negative); Epithelial Cells Rare HPF (Negative); Mucus Negative (Negative); Other Cells Negative (Negative); RBC >50 HPF (0-2); WBC Negative HPF (0-5)
--- NOTE | 2020-10-24 17:05 | DI.CT_ITS ---
Exam(s) CT RENAL COLIC WO EXAM: CT RENAL COLIC WO INDICATION: Left Flank Pain, R/O Kidney stone. COMPARISON: CT RENAL COLIC WO CONTRAST from 11/04/2009 TECHNIQUE: CT examination was performed without contrast administration. FINDINGS: Images obtained through the lung bases are unremarkable. Visualized portions of the liver and splee n appear intact. Visualized portions of the pancreas are unremarkable. Gallbladder and bile ducts are CT normal. Abdominal aorta is of normal diameter. No significant abdominal wall hernia. No significant abdominal or pelvic adenopathy. Appendix is no rmal. No focal bowel pathology. Adrenals appear normal bilaterally. There are bilateral nonobstructing renal calculi. Additionally there are 2 4 millimeter in diameter stones in the left ureter just below the level of the sacrum which cause moderate hydronephrosis and hydroureter. No obstruction on the right. No calcification of the right ureter. Urinary bladder is nearly empty. There is a septated cyst with rim calcification of the lower pole of the right kidney, this measures about 5 cm in diameter on transaxial imaging, prior examination of 24/03 showed a simple cyst measuri ng about 2.6 cm in diameter on transaxial imaging at that time. Correlation with MR is suggested to rule out cystic renal neoplasm although this is unlikely.. IMPRESSION: Bilateral nonobstructing renal calculi. 4 millimeter obstructing left ureteral calculi in the mid to distal ureter with moderate left hydrone phrosis and hydroureter. Interval increase in size of probably cystic lesion of the lower pole of the left kidney, this is sep tated and has rim calcification, this does measure near water density but neoplasia is not excluded o n the basis of this examination. Correlation with renal protocol MRI recommended. RADIATION DOSE DELIVERED: 849.91mGy.cm DLP 849.91mGy.cm Total DLP RADIATION OPTIMIZATION: All CT scans at this facility use at least one of these dose optimization te chniques: automated exposure control; mA and/or kV adjustment per patient size (includes targeted exa ms where dose is matched to clinical indication); or iterative reconstruction.
[2020-10-24 17:15] LABS: Abs Immature Grans 0.03 10^3/uL (0.0-0.06); Absolute Basophil Count 0.03 10^3/uL (0.0-0.2); Absolute Eosinophil Count 0.11 10^3/uL (0.0-0.7); Absolute Lymphocyte Count 1.71 10^3/uL (1.2-3.4); Absolute Monocyte Count 0.46 10^3/uL (0.1-0.8); Absolute Neutrophil Count 4.48 10^3/uL (1.2-6.7); Basophils % 0.4; Eosinophils % 1.6; HGB 11.9 g/dL (11.2-15.7); Immature Grans % 0.4; Lymphocytes % 25.1; MCH 28.3 pg (27.0-33.0); MCHC 33.1 % (32.0-36.0); MCV 85.5 fL (80-95); MPV 9.4 fL (8.0-11.0); Monocytes % 6.7; Neutrophils % 65.8; Nucleated RBC 0 %; Platelet Count 264 10^3/uL (130-400); RBC 4.21 10^6/uL (3.93-5.22); RDW 11.8 % (11.7-14.6); RDW-SD 36.4 fL; WBC 6.82 10^3/uL (4.4-10.8)
[2020-10-24 17:30] LABS: ALT 18 U/L (14-59); AST 10 U/L (15-37); Albumin 4.1 g/dL (3.4-5.0); Alkaline Phosphatase 60 U/L (46-116); Anion Gap 8.8 mmol/L (3-11); BUN 11 mg/dL (7-18); Bilirubin, Total 0.3 mg/dL (0.2-1.0); CO2 29.2 mmol/L (21.0-32.0); CREATININE 0.9 mg/dL (0.55-1.02); Calcium 8.9 mg/dL (8.5-10.1); Chloride 107 mmol/L (98-107); Glucose 91 mg/dL (74-106); Potassium 3.7 mmol/L (3.5-5.1); Sodium 145 mmol/L (136-145); Total Protein 7.1 g/dL (6.4-8.2)
--- NOTE | 2020-10-24 17:32 | DI.VRAD_ITS ---
Addendum created by Jenni Marks MD on 10/24/2020 5:40:39 PM EDT: The body of the report should read: Comparison with older imaging studies, if available, would be beneficial. Nonemergent renal mass protocol CT scan or MRI (with and without contrast) would also be beneficial for further evaluation of complexity. THIS REPORT CONTAINS FINDINGS THAT MAY BE CRITICAL TO PATIENT CARE. The findings were verbally communicated via telephone conference with MAHIN CELESTE at 5:40 PM EDT on 10/24/2020. The findings were acknowledged and understood. Initial report created on 10/24/2020 5:32:26 PM EDT: PROCEDURE INFORMATION: Exam: CT Abdomen And Pelvis Without Contrast Exam date and time: 10/24/2020 4:46 PM Age: 40 years old Clinical indication: Abdominal pain; Prior surgery; Surgery date: 6+ months; Surgery type: 2 stents for stones years ago; Patient HX: Left sided flank pain, HX of kidney stones. Last kidney stone was 6 years ago. TECHNIQUE: Imaging protocol: Computed tomography of the abdomen and pelvis without contrast. Radiation optimization: All CT scans at this facility use at least one of these dose optimization techniques: automated exposure control; mA and/or kV adjustment per patient size (includes targeted exams where dose is matched to clinical indication); or iterative reconstruction. COMPARISON: No relevant prior studies available. FINDINGS: Limitations: The superior aspect of the liver is incompletely imaged on this examination. Liver: The imaged portions of the liver are homogeneous. Gallbladder and bile ducts: The gallbladder is contracted and not well assessed. No calcified gallstones. Pancreas: Normal pancreas. Spleen: Normal spleen. Adrenal glands: Normal adrenal glands. Kidneys and ureters: Bilateral nonobstructive renal calculi. There is a septated cystic structure in the lower pole of the right, 6.5 cm. The more superior cystic component demonstrates rim calcification. Comparison with older imaging studies, if available, would be beneficial. Ultrasound or renal mass protocol CT scan would also be beneficial for further evaluation of complexity. There is left-sided hydronephrosis and hydroureter with 2 adjacent calculi in the mid to distal left ureter, each measuring 4 mm, series 5, image 42. There is associated perinephric/periureteral stranding which may be reactive but should be correlated with any concern for infection. Stomach and bowel: Heterogeneous contents to the stomach, favored to be related to ingested products. No evidence of bowel obstruction. Appendix: Appendix not clearly seen. Intraperitoneal space: No free air. Vasculature: Mild vascular calcifications. Lymph nodes: No pathologic lymph node enlargement. Urinary bladder: There is urinary bladder wall prominence, best appreciated on coronal images. This can be seen with infection or underdistention. Reproductive: The uterus is present. No large adnexal structures identified. A tampon is noted in the vaginal canal. Bones/joints: Skeletal degenerative changes. Scattered sclerotic foci in the bones. In the absence of known malignancy, these most likely represent bone islands. Soft tissues: Small fat containing inguinal hernia. IMPRESSION: 1. There is left-sided hydronephrosis and hydroureter with 2 adjacent calculi in the mid to distal left ureter, each measuring 4 mm, series 5, image 42. There is associated perinephric/periureteral stranding which may be reactive but should be correlated with any concern for infection. Additional bilateral nonobstructive renal calculi are noted. 2. Cystic structure in the right kidney as described, which does not fulfill the criteria for a simple cyst. Comparison with older imaging studies, if available, would be beneficial. Nonemergent renal mass protocol CT scan or MRI (with and without contrast) would also be beneficial for further evaluation of complexity. 3. Urinary bladder wall prominence. This can be seen with infection or underdistention. 4. Superior aspect of the liver is incompletely imaged. Other findings/details as above. Dictated and Authenticated by: Jenni Marks MD. Ordering:RAMÓN Rios MD
[2020-10-24] MEDS: Ketorolac 30 MG/ML VIAL IVP (17:57)
[2020-10-24] MEDS: Tamsulosin 0.4 MG CAPCR PO (17:57)
--- NOTE | 2020-10-24 17:59 | NUR.NOTE ---
Nursing Note: faxed referral to urology.
[2020-10-24 18:21] VITALS: BP 118/76; PULSE 78; RESP 16; TEMP 37; O2SAT 100
== END 2020-10-24 18:24 | disposition home or self-care (01) ==
PROVIDERS: Emergency Provider Registered Nurse Emergency; PCP Nurse Practitioner Family
DX: N20.0 Calculus of kidney (principal); N28.1 Cyst of kidney, acquired
CPT/HCPCS: 80053; 81025; 96374; 99284; 74176; 81003; 81015; 85025; 99283; J1885

== ENCOUNTER 2020-10-28 11:47 | Emergency (ER) | payer MEDICAID, SELFPAY ==
[2020-10-28 12:07] VITALS: BP 136/79; PULSE 84; TEMP 36.3; O2SAT 100
--- NOTE | 2020-10-28 12:15 | DI.CT_ITS ---
Exam(s) CT RENAL COLIC WO EXAM: CT RENAL COLIC WO CLINICAL HISTORY: Worsening, Flank pain, Hx Left uretral stone. TECHNIQUE: Imaging Protocol: Axial computed tomography images with coronal and sagittal reformatted images were created and reviewed CONTRAST MATERIAL: Intravenous: none Oral: None COMPARISON: CT CT RENAL COLIC WO from 10/24/2020 FINDINGS: VISUALIZED LUNG BASES: No nodules nor pleural effusions evident. ABDOMEN: There is no ascites. LIVER: There are no obvious focal hepatic lesions evident of this noninfused study. GALLBLADDER/BILIARY: No obvious gallbladder pathology. CBD is not dilated. PANCREAS: No evidence of pancreatic mass nor dilatation of the pancreatic duct. SPLEEN: Spleen is not enlarged. No obvious intrasplenic lesions. ADRENALS: There are no significant adrenal masses. KIDNEYS:Nephrolithiasis both kidneys again noted. Multiple calculi are again noted in both kidneys. There are now 2 calculi in the lower most left ureter left ureterovesical junction region, these adj acent calculi both measuring approximately 4 millimeters in size. There is only mild dilatation of l eft ureter above this level. No caliectasis. There are numerous remaining calculi in the left kidne y. No other focal left kidney findings. In the opposite-right kidney in addition to multiple small calculi there is again noted the previously described 5 by 4 cm cyst which contains small area of gilberto cification. Right ureter is not dilated. Right ureterovesical junction does not contain calculi. T here are no calculi within the actual bladder lumen (which is not distended). ABDOMINAL AORTA: Abdominal aorta is not enlarged. LYMPH NODES: There is no retroperitoneal nor paraaortic adenopathy. ABDOMINAL WALL: No evidence of significant anterior abdominal wall hernia. GI: There is no evidence of bowel obstruction, free air, nor abscess. PELVIS: LYMPH NODES: There is no intrapelvic nor inguinal adenopathy. GI: Appendix is difficult to locate however, there is no evidence of obvious acute appendicitis.No ev idence of sigmoid diverticulitis. URINARY BLADDER: As above. REPRODUCTIVE: Uterus and adnexal regions are age-appropriate. No free fluid. OSSEOUS: No significant osseous lesions. Increased density around sacroiliac joints may indicate sacroiliitis. This is more prominent on the left side. There is no ankylosis of the SI joints. IMPRESSION: 1. Bilateral nephrolithiasis again noted. However, there presently 2 adjacent 4-5 millimeter calculi at the left ureterovesical junction with mild dilatation left collecting system above this level. T here are no calculi within the urinary bladder lumen and the bladder is not distended. 2. In the right kidney there is a 5 x 4 cm cyst which exhibits some mural calcification and therefore requires close follow-up. 3. Probable sacroiliitis. No SI joint ankylosis. RADIATION DOSE DELIVERED: 911.79mGy.cm Total DLP DATA REPOSITORY: All CT scans at this facility are submitted to the National Radiology Data Registry (NRDR) Dose Index Registry (DIR) with the [employer] ([employer]). RADIATION OPTIMIZATION: All CT scans at this facility use at least one of these dose optimization te chniques: automated exposure control; mA and/or kV adjustment per patient size (includes targeted exa ms where dose is matched to clinical indication); or iterative reconstruction.
[2020-10-28 12:17] LABS: Bilirubin Negative (Negative); Blood Moderate (Negative); Clarity Sl Cloudy (Clear); Glucose Negative (Negative); Ketones Negative (Negative); Leukocyte Esterase Negative (Negative); Nitrite Negative (Negative); Specific Gravity 1.015 (1.005-1.025); Urobilinogen 0.2 EU/dL (Up TO 0.2)
--- NOTE | 2020-10-28 12:34 | ED.GENADUL_ITS ---
Discharge Plan Disposition Patient Disposition: HOME Condition: Stable Discharge Details Clinical Impression: Calculus of left ureter Primary Care Provider: Radha Mike ED Provider: Blanca Perla Home Meds and New Rx's Prescriptions: No Action tamsulosin 0.4 mg capsule 0.4 mg PO DAILY Qty: 10 RF: 0 sulfamethoxazole-trimethoprim 800-160 mg tablet 1 tab PO BID RF: 0 ketorolac 10 mg tablet 10 mg PO TID PRNRF: 0 lamotrigine 100 mg tablet 100 mg PO DAILY RF: 0 Discharge Instructions Instructions: Kidney Stones (ED) Additional Instructions: Please present to the hospital tomorrow as directed by the operating room. Nothing to eat or drink besides small ice chips after midnight. Please follow the instructions as discussed by Emmanuelle Wilson NP with urology. Do not take any Tylenol or Toradol as instructed. Stand Alone Forms: Work Release Referrals: Radha Mike [Primary Care Provider] - Emmanuelle Beckman DNP [NURSE PRACTITIONER] - Discharge Data Discharge Date/Time-TO BE ENTERED AT DEPARTURE: 10/28/20 14:57 Medical Decision Making Will reevaluate CBC, CMP, urinalysis repeat CT abdomen pelvis ordered will consult with urology. 1259: Spoke with Emmanuelle Beckman with urology regarding patient case and details. She was able to personally view the previous CT. She does express her concerns for possible moderate hydro at that time. I will call her back status post her current CT. She does recommend possible surgery and will discuss and see if she is a surgical candidate for here. If so she will plan on attempting to schedule her for lithotripsy if needed tomorrow. At this time as patient is adequately controlled with pain medication there may be no need to admit at this time. At this time labs are still pending and CT pending 1350: Spoke again with Emmanuelle Beckman NP with urology who was able to view the CT images. She will come and speak with patient regarding plan for possible lithotripsy tomorrow and consent for procedure. Preprocedure Covid testing ordered and obtained here in the department. Patient is aware of the plan she verbalizes understanding and is in agreement at this time I did discuss with patient to be n.p.o. after midnight she verbalizes understanding. 1440: Spoke with Emmanuelle Frias with urology she is at bedside for history and physical plan is to have patient have a lithotripsy in the OR tomorrow. Preop nurse will call her before 4 PM today. Patient verbalized understanding. Instructed to be n.p.o. after midnight not to take any more Toradol or NSAIDs. Patient discharged hemodynamically stable, alert and oriented. This text was generated using [employer] dictation system, please disregard any oddities of phrase or misspellings. HPI General Mode of arrival: ambulatory . Date/Time Provider Initiated Documentation: 10/28/20 12:28 . Limitations to Documentation: no limitations . Information obtained by: patient . HPI Narrative: 40-year-old female presents to the ER with chief complaint of worsening bilateral flank pain, hematuria, now suprapubic abdominal pain. Patient was seen by myself on Monday was diagnosed with a left-sided ureter 4 mm stone, did have bilateral nephrolithiasis at that time. At that time no evidence for systemic infection no UTI. Patient did make a phone call into her PCP regarding her symptoms and concern for UTI and was placed on Bactrim 2 days ago. Patient reports that she is took 2 days worth of Toradol which upset her stomach. No other associated symptoms at this time. No vomiting no chills no fever no diarrhea. She has not been in touch with urology department. Related Data Home Medications Medication Instructions Recorded Confirmed tamsulosin 0.4 mg PO DAILY #10 cap 10/24/20 10/29/20 ketorolac 10 mg PO TID PRN 10/28/20 10/28/20 lamotrigine 100 mg PO DAILY 10/28/20 10/29/20 sulfamethoxazole-trimethoprim 1 tab PO BID 10/28/20 10/29/20 Previous Rx's Medication Instructions Recorded tamsulosin 0.4 mg PO DAILY #10 cap 10/24/20 Allergies Allergy/AdvReac Type Severity Reaction Status Date / Time morphine Allergy Severe Difficulty Unverified 10/28/20 15:35 Breathing, Hives acetaminophen [From Percocet] Allergy Hives Verified 10/29/20 09:31 oxycodone Allergy Itching Unverified 10/28/20 15:35 oxybutynin AdvReac Severe STOPPED Unverified 10/28/20 15:35 ME FROM URINATING tramadol AdvReac Intermediate BRUISES Unverified 10/28/20 15:35 UNDER SKIN General Stated Complaint: FlankPain CIRO: 3 PFSH Medical History (Updated 10/29/20 @ 09:29 by Karl Galo) Anxiety Iron deficiency anemia Schatzki's ring of distal esophagus Surgical History H/O arthroscopic knee surgery H/O laparoscopy History of section History of surgery Bilateral renal stents Social History Smoking/Tobacco Use Status: Never Smoking risk assessment performed?: Yes Alcohol Intake: never Drug use: Never Substance use type: does not use Do you feel safe at home: Yes Do you feel safe in your relationship?: Yes Exam Narrative Exam Narrative: Constitutional: Alert and oriented x3. Appears stated age. Normal body habitus. Head: Normocephalic, no trauma. Eyes: Pupils PERRLA, Red reflex noted, EOM's intact. Eyelids symmetrical without lesions, discharge, or swelling. ENT: Bilateral TM's WNL, External ear normal to inspection, no mastoid TTP, swelling, or erythema, Nasal turbinates WNL, no nasal discharge. Normal dentition, Posterior pharynx WNL, no exudate. Chest: RRR, Normal S1, S2, distal pulses intact. Resp: Lungs clear to auscultation bilaterally, no wheezes, rales, or rhonchi. Abdomen: Soft, nondistended tender to palpation suprapubically and left lower quadrant. Bilateral CVA tenderness with palpation Musculoskeletal: Normal gait, 5/5 strength to all four extremities. Skin: No suspicious rashes or lesions. Capillary refill less than 2 sec. Neurologic: Cranial nerves II-XII intact. Alert and oriented x 3. DTR's intact. Hematologic/Lymphatic: No ecchymosis, no lymphadenopathy. Course Vital Signs Vital signs: Vital Signs Temperature 36.3 C L 10/28/20 12:07 Pulse 84 10/28/20 12:07 Blood Pressure 136/79 10/28/20 12:07 Pulse Oximetry 100 10/28/20 12:07 Temperature 36.3 C L 10/28/20 12:07 Temperature Source Temporal Artery Scan 10/28/20 12:07 Pulse 84 10/28/20 12:07 Respiratory Effort Non-Labored 10/28/20 12:12 Blood Pressure 136/79 10/28/20 12:07 Blood Pressure Position Sitting 10/28/20 12:07 Pulse Oximetry 100 10/28/20 12:07 Oxygen Delivery Method Room Air 10/28/20 12:07 Oxygen Flow Rate 0 10/28/20 12:07 Pain Level 8 10/28/20 12:07 Lab/Test Results Lab/Test Results: Laboratory Tests Range/Units 10/28/20 12:09 Urine Color (Yellow) Yellow Urine Clarity (Clear) Sl cloudy Urine pH (5-8) 7.0 Ur Specific [place] (1.005-1.025) 1.015 Urine Protein (Negative) mg/dL Negative Urine Ketones (Negative) mg/dL Negative Urine Blood (Negative) Moderate H Urine Nitrite (Negative) Negative Urine Bilirubin (Negative) Negative Urine Urobilinogen (Up TO 0.2) EU/dL 0.2 Ur Leukocyte Esterase (Negative) Negative Urine Glucose (Negative) mg/dL Negative POC- Test(urine) Negative
[2020-10-28 12:37] LABS: Bacteria Rare HPF (Negative); C & S Indicated? No; Casts Negative LPF (Negative); Crystals Negative HPF (Negative); Epithelial Cells Few HPF (Negative); Mucus Negative (Negative); WBC 0-2 HPF (0-5)
[2020-10-28 12:58] LABS: Abs Immature Grans 0.02 10^3/uL (0.0-0.06); Absolute Basophil Count 0.03 10^3/uL (0.0-0.2); Absolute Eosinophil Count 0.08 10^3/uL (0.0-0.7); Absolute Lymphocyte Count 1.38 10^3/uL (1.2-3.4); Absolute Monocyte Count 0.34 10^3/uL (0.1-0.8); Absolute Neutrophil Count 3.46 10^3/uL (1.2-6.7); Basophils % 0.6; Eosinophils % 1.5; HCT 37.6 % (36.0-46.0); HGB 12.4 g/dL (11.2-15.7); Immature Grans % 0.4; MCH 28.2 pg (27.0-33.0); MCV 85.5 fL (80-95); MPV 9.9 fL (8.0-11.0); Monocytes % 6.4; Neutrophils % 65.1; Nucleated RBC 0 %; Platelet Count 247 10^3/uL (130-400); RDW 11.8 % (11.7-14.6); RDW-SD 37.2 fL; WBC 5.31 10^3/uL (4.4-10.8)
[2020-10-28 13:10] LABS: Anion Gap 8.9 mmol/L (3-11); BUN 10 mg/dL (7-18); CO2 28.1 mmol/L (21.0-32.0); CREATININE 0.9 mg/dL (0.55-1.02); Chloride 103 mmol/L (98-107); Glucose 83 mg/dL (74-106); Sodium 140 mmol/L (136-145)
[2020-10-28] MEDS: Ondansetron 4 MG/2 ML VIAL IVP (13:18)
[2020-10-28] MEDS: Ketorolac 15 MG/ML VIAL IVP (13:18)
[2020-10-28 13:26] LABS: Source Nasal/Nares
[2020-10-28 14:56] VITALS: BP 122/75; PULSE 89; RESP 16; TEMP 36.8; O2SAT 98
[2020-10-28 16:05] LABS: COVID-19 PCR Negative (Negative)
--- NOTE | 2020-10-28 16:15 | W.UROLOGYCON ---
Date of service: 10/28/20 Time of Service: 14:00 Assessment and Plan Assessment and plan (1) Bilateral kidney stones: Status: Acute Assessment and plan: We reviewed her her imaging with her down in the ER and showed her her multiple bilateral nonobstructing stones. We discussed that a later date and time for addressing and monitoring them would be needed. We will plan on setting of a clinical time after her surgical procedure for further discussion about her bilateral nonobstructing stones. (2) Calculus of left ureter: Status: Acute Assessment and plan: In respect to her left flank pain. She has 2, 4 mm stones in the left ureter. They appear to be causing hydronephrosis on her left side. We discussed treatment options as far as allowing more time for tamsulosin and pain medication to work since the size stone should pass on its own. However due to her nausea and allergies to different pain medications she is looking for surgical interventions. We discussed performing cystoscopy, left retrograde pyelogram, left ureteroscopy with stone manipulation and possible stenting in the OR tomorrow. She would like to proceed knowing its going into a holiday weekend and would like to stay local if possible. Risks of the surgical procedure were reviewed with her. She notes that she has had this done multiple other times to each side. Preop orders were completed and given to nursing for scheduling. Day surgery was made aware. We did discuss the only concern about her nipple piercings being in place or removed during the surgery. The surgery preop nurse will discuss with anesthesia and inform the patient tomorrow. Patient is agreeable to the plan and will also be Covid tested while here in the emergency room. She understands to be n.p.o. and no NSAIDs/aspirins until after the procedure or when instructed. Dictation was done by [employer] voice recognition. Errors may be present within the note. History of Present Illness Narrative: SATISH Wright is a 40-year-old female that has a history of kidney stones. She was seen initially in the emergency room over the weekend and has bounced back into the emergency room for continued left flank pain today. She states that her history of kidney stones has led her to multiple surgeries which have required stenting. She notes that these occurred at [facility] and the last one was approximately 6 years ago. She reports never passing a stone or knowing the stone composition. She states that she had a 24-hour urine done and they do not know how to do stone prevention based upon the urine they analyzed. She denies having gout or parathyroidism. She states currently her left flank and even across to her right is causing her discomfort. She also notes that she is having nausea. She has been seeing gross hematuria. She notes that her frequency and urgency has also increased. She states due to dysuria Monday and Monday, she called her PCP and over the phone was placed on an antibiotic. She finds that this is not been extremely helpful with her symptoms. She reports that her medical history is unremarkable minus the kidney stones and anxiety. She notes she is being treated with Lamictal for her anxiety PMH Anxiety Kidney stones SX Kidney stone manipulation C-sections x3 Tubal ligation Endometriosis Knee surgery Esophageal widening Social Denies alcohol Denies smoking Works as an junior administrative assistant Allergies Reviewed elsewhere in the chart Medications Reviewed elsewhere in the chart Family Hx No known family history of urologic concerns or cancers Consults Consult date: 10/28/20 Requesting physician: Blanca Perla Review of Systems Constitutional Constitutional: Denies chills, Denies fatigue and Denies fever(s) Cardiovascular Cardiovascular: Denies chest pain and Denies dyspnea Respiratory Respiratory: Denies dyspnea Gastrointestinal Gastrointestinal: Reports as per HPI, Denies abdominal pain, Denies constipation and Denies diarrhea Genitourinary Genitourinary: Reports as per HPI, Reports hematuria, Denies nocturia, Reports dysuria, Reports flank pain, Denies urinary incontinence, Denies urinary hesitancy and Reports urinary urgency Endocrine Endocrine: Denies fatigue PFSH Medical History Anxiety Surgical History H/O arthroscopic knee surgery H/O laparoscopy History of section History of surgery Bilateral renal stents Social History Smoking/Tobacco Use Status: Never Smoking risk assessment performed?: Yes Alcohol Intake: never Drug use: Never Substance use type: does not use Do you feel safe at home: Yes Do you feel safe in your relationship?: Yes Exam Const Orientation: alert, awake and oriented x3 Eyes Sclera: sclerae normal Resp Effort & Inspection: normal respiratory effort and able to speak in complete sentences Auscultation: clear to auscultation bilaterally Cardio Rate: regular rate Rhythm: regular rhythm GI Inspection: normal to inspection and non-distended Palpation: soft and tender in the LLQ General: CVA tenderness on the left Extrem General: full ROM Results Last Vital Signs Temp 98.2 F 10/28/20 14:56 Pulse 89 10/28/20 14:56 Resp 16 10/28/20 14:56 BP 122/75 10/28/20 14:56 Pulse Ox 98 10/28/20 14:56 Labs Result diagrams: 10/28/20 12:34 10/28/20 12:34 Labs: Laboratory Results - last 24 hr 10/28/20 10/28/20 10/28/20 12:09 12:34 12:34 WBC 5.31 RBC 4.40 Hgb 12.4 Hct 37.6 MCV 85.5 MCH 28.2 MCHC 33.0 RDW 11.8 Plt Count 247 MPV 9.9 Immature Gran % 0.4 Neutrophils % 65.1 Lymphocytes % 26.0 Monocytes % 6.4 Eosinophils % 1.5 Basophils % 0.6 Nucleated RBC % 0 Absolute Neutrophils 3.46 Absolute Lymphocytes 1.38 Absolute Monocytes 0.34 Absolute Eosinophils 0.08 Absolute Basophils 0.03 Sodium 140 Potassium 4.0 Chloride 103 Carbon Dioxide 28.1 Anion Gap 8.9 BUN 10 Creatinine 0.9 Estimated GFR/1.73 m2 >= 60.00 Glucose 83 Calcium 9.0 Urine Color Yellow Urine Clarity Sl cloudy Urine pH 7.0 Ur Specific [place] 1.015 Urine Protein Negative Urine Ketones Negative Urine Blood Moderate H Urine Nitrite Negative Urine Bilirubin Negative Urine Urobilinogen 0.2 Ur Leukocyte Esterase Negative Urine RBC 10-20 H Urine WBC 0-2 Ur Epithelial Cells Few Urine Crystals Negative Urine Bacteria Rare Urine Casts Negative Urine Mucus Negative Ur Culture Indicated? No Urine Glucose Negative COVID-19 Source SARS-CoV-2 (PCR) 10/28/20 13:16 WBC RBC Hgb Hct MCV MCH MCHC RDW Plt Count MPV Immature Gran % Neutrophils % Lymphocytes % Monocytes % Eosinophils % Basophils % Nucleated RBC % Absolute Neutrophils Absolute Lymphocytes Absolute Monocytes Absolute Eosinophils Absolute Basophils Sodium Potassium Chloride Carbon Dioxide Anion Gap BUN Creatinine Estimated GFR/1.73 m2 Glucose Calcium Urine Color Urine Clarity Urine pH Ur Specific [place] Urine Protein Urine Ketones Urine Blood Urine Nitrite Urine Bilirubin Urine Urobilinogen Ur Leukocyte Esterase Urine RBC Urine WBC Ur Epithelial Cells Urine Crystals Urine Bacteria Urine Casts Urine Mucus Ur Culture Indicated? Urine Glucose COVID-19 Source Nasal/nares SARS-CoV-2 (PCR) Negative
== END 2020-10-28 14:57 | disposition home or self-care (01) ==
PROVIDERS: Emergency Provider Registered Nurse Emergency; PCP Nurse Practitioner Family
DX: N13.2 Hydronephrosis with renal and ureteral calculous obstruction (principal); Z87.442 Personal history of urinary calculi; Z03.818 Encounter for observation for suspected exposure to other biological agents ruled out
CPT/HCPCS: 36415; 80048; 81025; 87635; 96374; 96375; 99284; 74176; 81003; 81015; 85025; J1885; J2405

== ENCOUNTER 2020-10-29 09:14 | Day surgery (SDC) | payer MEDICAID, SELFPAY ==
[2020-10-29 09:33] VITALS: BP 123/72; PULSE 77; RESP 16; TEMP 36.6; O2SAT 100
[2020-10-29] MEDS: Lactated Ringers 1,000 ML 80 ML IV (09:56)
--- NOTE | 2020-10-29 10:54 | W.ANESPRE ---
General Info Date of Service Date Performed: 10/29/20 Height: 5 ft 10 in Weight: 80 kg Body Mass Index (BMI): 25.2 Surgical Procedure: Operation Date: 10/29/20 11:25 Proposed Procedures Side Surgeon p Cystoscopy/Laser/Retrograde/Ureteroscopy Left Ephraim Lopez MD Meds Allergies and Home Medications Allergies Allergy/AdvReac Type Severity Reaction Status Date / Time morphine Allergy Severe Difficulty Unverified 10/28/20 15:35 Breathing, Hives acetaminophen [From Percocet] Allergy Hives Verified 10/29/20 09:31 oxycodone Allergy Itching Unverified 10/28/20 15:35 oxybutynin AdvReac Severe STOPPED Unverified 10/28/20 15:35 ME FROM URINATING tramadol AdvReac Intermediate BRUISES Unverified 10/28/20 15:35 UNDER SKIN Home Medication Medication Instructions Recorded tamsulosin 0.4 mg PO DAILY #10 cap 10/24/20 ketorolac 10 mg PO TID PRN 10/28/20 lamotrigine 100 mg PO DAILY 10/28/20 sulfamethoxazole-trimethoprim 1 tab PO BID 10/28/20 Current Visit Medications: Current Medications Generic Name Dose Route Start Last Admin Trade Name Freq PRN Reason Stop Dose Admin Ringer's Solution 1,000 mls @ 80 mls/hr 10/29/20 06:00 10/29/20 09:56 IV 11/28/20 23:59 80 mls/hr INFUSION GERSON Administration Cefazolin Sodium/Dextrose 1 gm in 50 mls @ 100 mls/hr 10/29/20 06:00 Ancef Duplex IVPB 10/29/20 16:00 PREOP GERSON IV Miscellaneous Supplies 1 each 10/29/20 06:00 Iv Access IV 11/28/20 23:59 DIRECTED GERSON Sodium Chloride 0 ml 10/29/20 06:00 Normal Saline Flush 10 Ml Syr IV 11/28/20 23:59 PRN PRN Sodium Chloride 0 ml 10/29/20 06:00 Normal Saline 10 Ml Vial IJ 11/28/20 23:59 DIRECTED PRN Sterile Water 0 ml 10/29/20 06:00 Water,Injection,Sterile 10 Ml Vial IJ 11/28/20 23:59 DIRECTED PRN PFSH Active Problems Active Problems: Problem Status Onset Code Bilateral kidney stones N20.0 Cyst of right kidney N28.1 Calculus of left ureter N20.1 Medical History Medical History (Updated 10/29/20 @ 09:29 by Karl Galo) Anxiety Iron deficiency anemia Schatzki's ring of distal esophagus Surgical History Surgical History H/O arthroscopic knee surgery H/O laparoscopy History of section History of surgery Bilateral renal stents Tobacco Smoking/Tobacco Use Status: Never Alcohol Alcohol Intake: never Substance Use Substance use: Never Substance use type: does not use Vital Signs and Lab Results Vital Signs Most Recent Vital Signs in EMR: Most Recent Vital Signs Temp Pulse Resp BP Pulse Ox 36.6 C 77 16 123/72 100 10/29/20 09:33 10/29/20 09:33 10/29/20 09:33 10/29/20 09:33 10/29/20 09:33 Point of Care Results Point of Care Results: POC- Test(urine) Negative 10/29/20 09:57 Lab Results Blood Type / Crossmatch: No Data to Display Complete Blood Count: White Blood Count 5.31 10^3/uL (4.4-10.8) 10/28/20 12:34 10/28/20 Red Blood Count 4.40 10^6/uL (3.93-5.22) 10/28/20 12:34 10/28/20 Hemoglobin 12.4 g/dL (11.2-15.7) 10/28/20 12:34 10/28/20 Hematocrit 37.6 % (36.0-46.0) 10/28/20 12:34 10/28/20 Platelet Count 247 10^3/uL (130-400) 10/28/20 12:34 10/28/20 Complete Metabolic Panel: Sodium Level 140 mmol/L (136-145) 10/28/20 12:34 10/28/20 Potassium Level 4.0 mmol/L (3.5-5.1) 10/28/20 12:34 10/28/20 Chloride Level 103 mmol/L (98-107) 10/28/20 12:34 10/28/20 Carbon Dioxide Level 28.1 mmol/L (21.0-32.0) 10/28/20 12:34 10/28/20 Blood Urea Nitrogen 10 mg/dL (7-18) 10/28/20 12:34 10/28/20 Creatinine 0.9 mg/dL (0.55-1.02) 10/28/20 12:34 10/28/20 Calcium Level 9.0 mg/dL (8.5-10.1) 10/28/20 12:34 10/28/20 Albumin 4.1 g/dL (3.4-5.0) 10/24/20 17:08 10/24/20 Glucose Level 83 mg/dL (74-106) 10/28/20 12:34 10/28/20 Liver Function Panel: Alanine Aminotransferase (ALT/SGPT) 18 U/L (14-59) 10/24/20 17:08 10/24/20 Aspartate Amino Transf (AST/SGOT) 10 U/L (15-37) L 10/24/20 17:08 10/24/20 Coagulation Panel: No Data to Display Cardiac Panel: No Data to Display Arterial Blood Gas: No Data to Display Venous Blood Gas: No Data to Display Pancreas Panel: No Data to Display Thyroid Panel: No Data to Display Infectious Disease: Coronavirus (COVID-19)(PCR) Negative (Negative) 10/28/20 13:16 10/28/20 Coronavirus 2019 Source Nasal/nares 10/28/20 13:16 10/28/20 Blood Cultures: No Data to Display Toxicology Panel: No Data to Display Panel: No Data to Display Imaging and Studies Imaging and Studies Echocardiogram Summary: 03/30/2017: Summary: 1. Left ventricle: The cavity size was normal. Wall thickness was normal. Systolic function was normal. The estimated ejection fraction was 60-65%. Wall motion was normal; there were no regional wall motion abnormalities. 2. Right ventricle: The cavity size was normal. Systolic function was normal. 03/2017: Summary: 1. Left ventricle: The cavity size was normal. Wall thickness was normal. Systolic function was normal. The estimated ejection fraction was 60-65%. Wall motion was normal; there were no regional wall motion abnormalities. 2. Right ventricle: The cavity size was normal. Systolic function was normal. Anesthesia Assessment and Plan Anesthesia History Personal History: No History of Anesthesia Complications Family History: No Family History of Anesthesia Complications Exercise Tolerance Exercise Tolerance: Metabolic Equivalents>4 Pertinent Negatives Pertinent Negatives: No Symptoms of GERD, No Major Cardiovascular Symptoms or Complaints and No Major Pulmonary Symptoms or Complaints Cardiac & Pulmonary Exam Cardiac Exam: Normal S1/S2 Heart Sounds Pulmonary Exam: Clear Bilateral Breath Sounds Airway Exam Known Difficult Airway: No Mallampati Class: 2 Mouth Opening: Normal (> 3cm) Thyromental Distance: Greater than 3 cm Neck Range of Motion: Full ROM Neck Circumference: Normal Teeth Condition: Normal Dentition ASA Classification ASA Score: ASA 2 Emergency Case?: No NPO Status NPO Status: NPO Clears >2 hours, Solids >8 hours Status Status: Not Relevant due to Medical History and Negative HCG Anesthesia Plan Resuscitation Status: Full Code Anesthesia Technique: General Anesthesia Airway Planned: Natural Airway Monitors Used: Standard Monitors
[2020-10-29 10:59] VITALS: BMI 25.2
--- NOTE | 2020-10-29 11:08 | W.PM.HP.N ---
Date of service: 10/29/20 Time of Service: 11:08 History of Present Illness History of Present Illness Chief Complaint: Left ureteral stones [facility] Medical History (Updated 10/29/20 @ 09:29 by Karl Galo) Anxiety Iron deficiency anemia Schatzki's ring of distal esophagus Surgical History H/O arthroscopic knee surgery H/O laparoscopy History of section History of surgery Bilateral renal stents Social History Smoking/Tobacco Use Status: Never Smoking risk assessment performed?: Yes Alcohol Intake: never Drug use: Never Substance use type: does not use Do you feel safe at home: Yes Do you feel safe in your relationship?: Yes Meds Allergies and Home Medications Allergies Allergy/AdvReac Type Severity Reaction Status Date / Time morphine Allergy Severe Difficulty Unverified 10/28/20 15:35 Breathing, Hives acetaminophen [From Percocet] Allergy Hives Verified 10/29/20 09:31 oxycodone Allergy Itching Unverified 10/28/20 15:35 oxybutynin AdvReac Severe STOPPED Unverified 10/28/20 15:35 ME FROM URINATING tramadol AdvReac Intermediate BRUISES Unverified 10/28/20 15:35 UNDER SKIN Home Medications Medication Instructions Recorded Confirmed Type tamsulosin 0.4 mg PO DAILY #10 cap 10/24/20 10/29/20 Rx ketorolac 10 mg PO TID PRN 10/28/20 10/28/20 History lamotrigine 100 mg PO DAILY 10/28/20 10/29/20 History sulfamethoxazole-trimethoprim 1 tab PO BID 10/28/20 10/29/20 History Results Last Vital Signs Temp 36.6 C 10/29/20 09:33 Pulse 77 10/29/20 09:33 Resp 16 10/29/20 09:33 BP 123/72 10/29/20 09:33 Pulse Ox 100 10/29/20 09:33 COVID-19 Screening Have you, or household traveled for leisure in last 14 days?: No Had IN PERSON contact w/suspected or confirmed C-19 person: No
--- NOTE | 2020-10-29 11:16 | HPE_ITS ---
Date of service: 10/29/20 Time of Service: : Assessment and Plan Assessment and plan (1) Calculus of left ureter: Status: Acute Assessment and plan: We will move ahead with cystoscopy, retrograde py elogram, left ureteroscopy and possible holmium laser lithotripsy. Plan to leave this a left ureteral stent so that we can come back in the near future and address for the left kidney stones by flexible ureteroscopy. History of Present Illness History of Present Illness Chief Complaint: Left ureteral stones Narrative: Suki Wright is a 40-year-old female that has a history of kidney stones.? She was seen initially in the emergency room over the weekend and has bounced back into the emergency room for continued left flank pain today.? She states that her history of kidney stones has led her to multiple surgeries which have required stenting.? She notes that these occurred at [facility] and the last one was approximately 6 years ago.? She reports never passing a stone or knowing the stone composition.? She states that she had a 24-hour urine done and they do not know how to do stone prevention based upon the urine they analyzed. She denies having gout or parathyroidism. She states currently her left flank and even across to her right is causing her discomfort.? She also notes that she is having nausea.? She has been seeing gross hematuria.? She notes that her frequency and urgency has also increased.? She states due to dysuria Monday and Monday, she called her PCP and over the phone was placed on an antibiotic.? She finds that this is not been extremely helpful with her symptoms. She reports that her medical history is unremarkable minus the kidney stones and anxiety.? She notes she is being treated with Lamictal for her anxiety Review of Systems Narrative: No fevers or chills No vision change or dysphasia No diabetes or thyroid No shortness of breath, cough or hemoptysis No chest pain or palpitations No hepatitis, ulcers, jaundice, diarrhea or constipation No seizures, strokes or peripheral neuropathy No bleeding disorders or anemia No gout or arthralgia [facility] Medical History (Updated 10/29/20 @ 09:29 by Karl Galo) Anxiety Iron deficiency anemia Schatzki's ring of distal esophagus Surgical History H/O arthroscopic knee surgery H/O laparoscopy History of section History of surgery Bilateral renal stents Social History Smoking/Tobacco Use Status: Never Smoking risk assessment performed?: Yes Alcohol Intake: never Drug use: Never Substance use type: does not use Do you feel safe at home: Yes Do you feel safe in your relationship?: Yes Meds Allergies and Home Medications Allergies Allergy/AdvReac Type Severity Reaction Status Date / Time morphine Allergy Severe Difficulty Unverified 10/28/20 15:35 Breathing, Hives acetaminophen [From Percocet] Allergy Hives Verified 10/29/20 09:31 oxycodone Allergy Itching Unverified 10/28/20 15:35 oxybutynin AdvReac Severe STOPPED Unverified 10/28/20 15:35 ME FROM URINATING tramadol AdvReac Intermediate BRUISES Unverified 10/28/20 15:35 UNDER SKIN Home Medications Medication Instructions Recorded Confirmed Type tamsulosin 0.4 mg PO DAILY #10 cap 10/24/20 10/29/20 Rx ketorolac 10 mg PO TID PRN 10/28/20 10/28/20 History lamotrigine 100 mg PO DAILY 10/28/20 10/29/20 History sulfamethoxazole-trimethoprim 1 tab PO BID 10/28/20 10/29/20 History Exam Const General: cooperative Neck Neck: supple Resp Effort & Inspection: normal respiratory effort Auscultation: clear to auscultation bilaterally Cardio Rate: regular rate Rhythm: regular rhythm GI Palpation: soft, no guarding and no masses Neuro General: patient alert, patient awake and patient oriented x3 Results Last Vital Signs Temp 36.6 C 10/29/20 09:33 Pulse 77 10/29/20 09:33 Resp 16 10/29/20 09:33 BP 123/72 10/29/20 09:33 Pulse Ox 100 10/29/20 09:33 COVID-19 Screening Have you, or household traveled for leisure in last 14 days?: No Had IN PERSON contact w/suspected or confirmed C-19 person: No
[2020-10-29] MEDS: ceFAZolin 1 GM/50 ML BAG IVPB (12:07)
[2020-10-29] MEDS: Lidocaine 2% Jelly 6 ML SYR (12:20)
[2020-10-29] MEDS: Omnipaque 300 MG/ML 50 ML BTL (12:35)
--- NOTE | 2020-10-29 12:35 | DI.RAD_ITS ---
Exam(s) XR RETROGRADE IN OR EXAM: XR RETROGRADE IN OR CLINICAL HISTORY: Calculus of left ureter. TECHNIQUE: Fluoroscopy was provided for Dr. Lopez for guidance with performing retrograde procedure. COMPARISON: No exams were available for comparison FINDINGS: Please see procedure note for details. RADIATION DOSE DELIVERED: marlene Adams=1.42 mGy
--- NOTE | 2020-10-29 12:41 | W.PM.DSUDISC ---
Discharge Plan Disposition Patient Disposition: HOME Condition: Stable Discharge Details Reason For Visit: (L) URETERAL STONES Attending Provider: Ephraim Lopez Primary Care Provider: Radha Mike Home Meds and New Rx's Prescriptions: No Action tamsulosin 0.4 mg capsule 0.4 mg PO DAILY Qty: 10 RF: 0 sulfamethoxazole-trimethoprim 800-160 mg tablet 1 tab PO BID RF: 0 ketorolac 10 mg tablet 10 mg PO TID PRNRF: 0 lamotrigine 100 mg tablet 100 mg PO DAILY RF: 0 Discharge Instructions Additional Instructions: no F/U appt needed at this time - my office will call to arrange next procedure (cysto, stent removal, left flexible ureteroscopy, removal left renal stones) Activity:: Activity as Tolerated Shower/Bathe:: 24 hours Diet:: As Tolerated Discharge Orders Discharge Orders: Discharge Order (Routine); Ordered 10/29/20 Ordered By: Ephraim Lopez DS: Diagnosis Discharge Diagnosis (1) Calculus of left ureter: Status: Acute
[2020-10-29 12:45] VITALS: BP 102/58; PULSE 77; RESP 16; TEMP 36; O2SAT 99
--- NOTE | 2020-10-29 12:45 | ROE_ITS ---
Date of service: 10/29/20 Time of Service: 12:45 Operative Note Operative Note DATE OF PROCEDURE: 10/29/20 PRE-OP DIAGNOSIS: Left ureteral stones POST-OP DIAGNOSIS: same PROCEDURE: Cystoscopy, left retrograde pyelogram, left ureteroscopy with stone extraction, insert left ureteral stent SURGEON: Ephraim Lopez ANESTHESIA TYPE: General:No Airway Refer to Anesthesia Record ESTIMATED BLOOD LOSS: 15 PATHOLOGY: other (left ureteral stones for chemical analysis) COMPLICATIONS: None Patient was transported to: same day Patient's condition: stable Implants: 4.8 Montenegrin by 22 to 30 cm left ureteral stent Indications: This is a 40-year-old woman who has a history of recurrent kidney stones. She has had 2 recent emergency room visits here at our facility due to left-sided renal colic. She was identified as having to ureteral stones which had migrated from the pelvic brim to the ureterovesical junction. She continues to be symptomatic, so she presents for stone manipulation. She also has bilateral nonobstructing stones in both kidneys. Findings: Two distal left ureteral stones Procedure Description: The patient was brought to the operating room on 10/29/2020. Given preoperative IV antibiotics. After successful induction of general anesthesia without sedation, she was placed in the dorsal lithotomy position. Her genitalia was prepped and draped. 2% Xylocaine jelly was instilled into the urethra to act as a local anesthetic. A 22 Montenegrin rigid cystoscope was then passed through the urethra into the bladder. The bladder was inspected with a 30 degree lens. The left ureteral orifice was visualized. The orifice was cannulated with a 6 Montenegrin access catheter and a retrograde film was obtained. Within the distal 1 to 2 cm of the ureter, a filling defect was identified. I was then able to pass a Glidewire through the access catheter and maneuver the wire up the remainder of the ureter. I removed the cystoscope into the access catheter leaving the wire in place. We then used a semirigid ureteroscope and passed the scope through the urethra into the bladder. We ran the scope into the left ureteral orifice and visualized a yellow tinted stone. The stone was grasped in a Belkis stone basket and removed in its entirety. Based on the CT scans, there was a second stone more proximal to the stone we just excised, so I reintroduced the ureteroscope and passed the scope up until a second stone was visualized. I would estimate this stone was about 2 to 3 cm proximal to the previously addressed stone. I was able to grasp the second stone in the Belkis stone basket and remove it as well. Both stones were then sent to pathology for chemical analysis. Knowing that she had additional stones in the left kidney that she is interested in having treated later, I went ahead and placed a ureteral stent. I chose a 4.8 Montenegrin variable length stent and passed it over the guidewire. The proximal end of the stent was curled in the renal pelvis and the distal and was curled in the bladder. The positioning of the stent was confirmed both fluoroscopically and cystoscopically. We will plan to return to the operating room in a week or 2 to remove the stent and run a flexible ureteroscope up to the kidney to address the other stones. She tolerated this procedure well with no complications.
[2020-10-29 13:19] VITALS: BP 117/74; PULSE 64; RESP 16; TEMP 36.6; O2SAT 100
--- NOTE | 2020-10-29 13:26 | W.ANESPOSTOP ---
Postoperative Evaluation Date, Time and Location Date Performed: 10/29/20 Time Performed: 13:26 Patient Location: Day Surgery Unit Vital Signs Most Recent Imported Vital Signs: Most Recent Vital Signs Temp Pulse Resp BP Pulse Ox 36.6 C 64 16 117/74 100 10/29/20 13:19 10/29/20 13:19 10/29/20 13:19 10/29/20 13:19 10/29/20 13:19 Pain Score Most Recent Pain Score: Most Recent Pain Score Pain Level 7 10/29/20 13:19 Assessment Mental Status: Awake (Alert & Oriented to Patient Baseline) Airway and Respiratory Function: Patent airway with normal (patient baseline) respiratory exam Cardiovascular Function: Hemodynamically Stable Hydration Status: Adequately Hydrated Nausea & Vomiting: No Nausea or Vomiting Pain: Pain is Moderate or Severe Postoperative Pain Management: Pain being addressed with medication Peripheral Nerve Block: Patient did not receive a nerve block
[2020-10-29] MEDS: Ondansetron 4 MG/2 ML VIAL IVP (13:36)
[2020-10-29] MEDS: HYDROcodone 5/Acetaminophen 325 TAB PO (13:36)
[2020-10-29] MEDS: Phenazopyridine 200 MG TAB PO (13:36)
[2020-10-29 13:58] VITALS: BP 105/65; PULSE 67; RESP 16; O2SAT 100
[2020-11-06 16:17] LABS: Source: Left Ureter
== END 2020-10-29 14:18 | disposition home or self-care (01) ==
PROVIDERS: PCP Nurse Practitioner Family; Visit Provider Urology
PROC: (CPT 52352; principal; 2020-10-29 11:15)
DX: N20.1 Calculus of ureter (principal); F41.9 Anxiety disorder, unspecified; D50.9 Iron deficiency anemia, unspecified
CPT/HCPCS: 52352; 52332; 81025; 74420; 82365; J0690; J1100; J1885; J2001; J2405; Q9967

== ENCOUNTER 2020-11-03 02:39 | Outpatient (CLI) | payer MEDICAID, SELFPAY ==
[2020-11-03 11:36] LABS: Source Nasal/Nares
[2020-11-03 22:12] LABS: COVID-19 PCR Negative (Negative)
== END 2020-11-03 02:40 | disposition home or self-care (01) ==
LOC: LBO 02:39
PROVIDERS: PCP Nurse Practitioner Family; Visit Provider Urology
DX: Z20.822 Contact with and (suspected) exposure to COVID-19 (principal); Z01.818 Encounter for other preprocedural examination
CPT/HCPCS: 87635

== ENCOUNTER 2020-11-05 06:20 | Day surgery (SDC) | payer MEDICAID, SELFPAY ==
[2020-11-05] VITALS (10 sets, daily range): BP systolic 105–121; BP diastolic 55–74; PULSE 65–74; RESP 13–18; TEMP 36.1–36.6; O2SAT 96–100; BMI 25.6
--- NOTE | 2020-11-05 06:43 | W.PM.HP.N ---
Date of service: 11/05/20 Time of Service: 06:43 Assessment and Plan Assessment and plan (1) Bilateral kidney stones: Status: Acute Assessment and plan: For cystoscopy, stent removal, flexible ureteroscopy and remove any residual stones History of Present Illness History of Present Illness Chief Complaint: Left renal stones Narrative: A 40-year-old woman who has a history of bilateral urolithiasis. She underwent ureteroscopy and extraction of distal ureteral stones. We placed a ureteral stent after the procedure. She presents now for stent removal and flexible ureteroscopy to evaluate the kidney for any residual stones. She has stent discomfort including frequency, pain with voiding and hematuria. She has no fevers or chills. Review of Systems Narrative: No fevers or chills No vision change or dysphasia No diabetes or thyroid dysfunction No shortness of breath, cough or hemoptysis No chest pain or palpitations No vomiting, hepatitis, ulcers, jaundice, diarrhea or constipation No seizures, strokes or peripheral neuropathy No bleeding disorders or anemia No gout PFSH Medical History Anxiety Iron deficiency anemia Schatzki's ring of distal esophagus Surgical History (Updated 11/05/20 @ 06:37 by Marilyn Wade) H/O arthroscopic knee surgery H/O laparoscopy History of section History of surgery Bilateral renal stents Hx of tubal ligation Social History Smoking/Tobacco Use Status: Never Smoking risk assessment performed?: Yes Alcohol Intake: never Drug use: Never Substance use type: does not use Do you feel safe at home: Yes Do you feel safe in your relationship?: Yes Meds Allergies and Home Medications Allergies Allergy/AdvReac Type Severity Reaction Status Date / Time morphine Allergy Severe Difficulty Unverified 11/05/20 06:37 Breathing, Hives acetaminophen [From Percocet] Allergy Hives Verified 11/05/20 06:37 oxycodone Allergy Itching Unverified 11/05/20 06:37 oxybutynin AdvReac Severe STOPPED Unverified 11/05/20 06:37 ME FROM URINATING tramadol AdvReac Intermediate BRUISES Unverified 11/05/20 06:37 UNDER SKIN Home Medications Medication Instructions Recorded Confirmed Type tamsulosin 0.4 mg PO DAILY #10 cap 10/24/20 11/05/20 Rx ketorolac 10 mg PO TID PRN 10/28/20 11/05/20 History lamotrigine 100 mg PO DAILY 10/28/20 11/05/20 History sulfamethoxazole-trimethoprim 1 tab PO BID 10/28/20 11/05/20 History phenazopyridine 100 mg tablet 100 - 200 mg PO TID PRN #12 tab 10/30/20 11/05/20 Rx Exam Const General: cooperative and no acute distress Neck Neck: supple Resp Effort & Inspection: normal respiratory effort Auscultation: clear to auscultation bilaterally Cardio Rate: regular rate Rhythm: regular rhythm GI Palpation: soft and no guarding Neuro General: patient alert, patient awake and patient oriented x3 COVID-19 Screening Have you, or household traveled for leisure in last 14 days?: No Had IN PERSON contact w/suspected or confirmed C-19 person: No
[2020-11-05] MEDS: Lactated Ringers 1,000 ML 80 ML IV (06:55)
--- NOTE | 2020-11-05 07:05 | W.ANESPRE ---
General Info Date of Service Date Performed: 11/05/20 Height: 5 ft 10 in Weight: 81.1 kg Body Mass Index (BMI): 25.6 Surgical Procedure: Operation Date: 11/05/20 07:40 Proposed Procedures Side Surgeon p cysto,remove lt ureteral stent, lt retrograde, lt flex ureteroscopy with stone removal Left Ephraim Lopez MD Meds Allergies and Home Medications Allergies Allergy/AdvReac Type Severity Reaction Status Date / Time morphine Allergy Severe Difficulty Unverified 11/05/20 06:37 Breathing, Hives acetaminophen [From Percocet] Allergy Hives Verified 11/05/20 06:37 oxycodone Allergy Itching Unverified 11/05/20 06:37 oxybutynin AdvReac Severe STOPPED Unverified 11/05/20 06:37 ME FROM URINATING tramadol AdvReac Intermediate BRUISES Unverified 11/05/20 06:37 UNDER SKIN Home Medication Medication Instructions Recorded tamsulosin 0.4 mg PO DAILY #10 cap 10/24/20 ketorolac 10 mg PO TID PRN 10/28/20 lamotrigine 100 mg PO DAILY 10/28/20 sulfamethoxazole-trimethoprim 1 tab PO BID 10/28/20 phenazopyridine 100 mg tablet 100 - 200 mg PO TID PRN #12 tab 10/30/20 Current Visit Medications: Current Medications Generic Name Dose Route Start Last Admin Trade Name Freq PRN Reason Stop Dose Admin Ringer's Solution 1,000 mls @ 80 mls/hr 11/05/20 06:00 11/05/20 06:55 IV 12/04/20 23:59 80 mls/hr INFUSION GERSON Administration Cefazolin Sodium/Dextrose 1 gm in 50 mls @ 100 mls/hr 11/05/20 06:00 Ancef Duplex IVPB 11/05/20 16:00 PREOP GERSON IV Miscellaneous Supplies 1 each 11/05/20 06:00 Iv Access IV 12/04/20 23:59 DIRECTED GERSON Sodium Chloride 0 ml 11/05/20 06:00 Normal Saline Flush 10 Ml Syr IV 12/04/20 23:59 PRN PRN Sodium Chloride 0 ml 11/05/20 06:00 Normal Saline 10 Ml Vial IJ 12/04/20 23:59 DIRECTED PRN Sterile Water 0 ml 11/05/20 06:00 Water,Injection,Sterile 10 Ml Vial IJ 12/04/20 23:59 DIRECTED PRN PFSH Active Problems Active Problems: Problem Status Onset Code Bilateral kidney stones N20.0 Cyst of right kidney N28.1 Calculus of left ureter N20.1 Medical History Medical History Anxiety Iron deficiency anemia Schatzki's ring of distal esophagus Surgical History Surgical History (Updated 11/05/20 @ 06:37 by Marilyn Wade) H/O arthroscopic knee surgery H/O laparoscopy History of section History of surgery Bilateral renal stents Hx of tubal ligation Tobacco Smoking/Tobacco Use Status: Never Alcohol Alcohol Intake: never Substance Use Substance use: Never Substance use type: does not use Vital Signs and Lab Results Vital Signs Most Recent Vital Signs in EMR: Most Recent Vital Signs Temp Pulse Resp BP Pulse Ox 36.6 C 74 16 105/64 98 11/05/20 06:44 11/05/20 06:44 11/05/20 06:44 11/05/20 06:44 11/05/20 06:44 Point of Care Results Point of Care Results: POC- Test(urine) Negative 11/05/20 06:49 Lab Results Blood Type / Crossmatch: No Data to Display Complete Blood Count: White Blood Count 5.31 10^3/uL (4.4-10.8) 10/28/20 12:34 10/28/20 Red Blood Count 4.40 10^6/uL (3.93-5.22) 10/28/20 12:34 10/28/20 Hemoglobin 12.4 g/dL (11.2-15.7) 10/28/20 12:34 10/28/20 Hematocrit 37.6 % (36.0-46.0) 10/28/20 12:34 10/28/20 Platelet Count 247 10^3/uL (130-400) 10/28/20 12:34 10/28/20 Complete Metabolic Panel: Sodium Level 140 mmol/L (136-145) 10/28/20 12:34 10/28/20 Potassium Level 4.0 mmol/L (3.5-5.1) 10/28/20 12:34 10/28/20 Chloride Level 103 mmol/L (98-107) 10/28/20 12:34 10/28/20 Carbon Dioxide Level 28.1 mmol/L (21.0-32.0) 10/28/20 12:34 10/28/20 Blood Urea Nitrogen 10 mg/dL (7-18) 10/28/20 12:34 10/28/20 Creatinine 0.9 mg/dL (0.55-1.02) 10/28/20 12:34 10/28/20 Calcium Level 9.0 mg/dL (8.5-10.1) 10/28/20 12:34 10/28/20 Albumin 4.1 g/dL (3.4-5.0) 10/24/20 17:08 10/24/20 Glucose Level 83 mg/dL (74-106) 10/28/20 12:34 10/28/20 Liver Function Panel: Alanine Aminotransferase (ALT/SGPT) 18 U/L (14-59) 10/24/20 17:08 10/24/20 Aspartate Amino Transf (AST/SGOT) 10 U/L (15-37) L 10/24/20 17:08 10/24/20 Coagulation Panel: No Data to Display Cardiac Panel: No Data to Display Arterial Blood Gas: No Data to Display Venous Blood Gas: No Data to Display Pancreas Panel: No Data to Display Thyroid Panel: No Data to Display Infectious Disease: Coronavirus (COVID-19)(PCR) Negative (Negative) 11/03/20 11:04 11/03/20 Coronavirus 2019 Source Nasal/nares 11/03/20 11:04 11/03/20 Blood Cultures: No Data to Display Toxicology Panel: No Data to Display Panel: No Data to Display Imaging and Studies Imaging and Studies Echocardiogram Summary: 03/30/2017: Summary: 1. Left ventricle: The cavity size was normal. Wall thickness was normal. Systolic function was normal. The estimated ejection fraction was 60-65%. Wall motion was normal; there were no regional wall motion abnormalities. 2. Right ventricle: The cavity size was normal. Systolic function was normal. 03/2017: Summary: 1. Left ventricle: The cavity size was normal. Wall thickness was normal. Systolic function was normal. The estimated ejection fraction was 60-65%. Wall motion was normal; there were no regional wall motion abnormalities. 2. Right ventricle: The cavity size was normal. Systolic function was normal. Anesthesia Assessment and Plan Anesthesia History Personal History: No History of Anesthesia Complications Family History: No Family History of Anesthesia Complications Exercise Tolerance Exercise Tolerance: Metabolic Equivalents>4 Pertinent Negatives Pertinent Negatives: No Symptoms of GERD, No Major Cardiovascular Symptoms or Complaints, No Major Pulmonary Symptoms or Complaints and No History of CVA/TIA Cardiac & Pulmonary Exam Cardiac Exam: Normal S1/S2 Heart Sounds Pulmonary Exam: Clear Bilateral Breath Sounds Airway Exam Known Difficult Airway: No Mallampati Class: 2 Mouth Opening: Normal (> 3cm) Thyromental Distance: Greater than 3 cm Neck Range of Motion: Full ROM Neck Circumference: Normal Teeth Condition: Normal Dentition ASA Classification ASA Score: ASA 2 Emergency Case?: No NPO Status NPO Status: NPO Clears >2 hours, Solids >8 hours Status Status: Not Relevant due to Medical History Anesthesia Plan Resuscitation Status: Full Code Anesthesia Technique: General Anesthesia Airway Planned: Natural Airway Monitors Used: Standard Monitors
[2020-11-05] MEDS: ceFAZolin 1 GM/50 ML BAG IVPB (07:38)
[2020-11-05] MEDS: Lidocaine 2% Jelly 6 ML SYR (07:53)
[2020-11-05] MEDS: Omnipaque 300 MG/ML 50 ML BTL (08:25)
--- NOTE | 2020-11-05 08:33 | W.PM.DSUDISC ---
Discharge Plan Disposition Patient Disposition: HOME Condition: Stable Discharge Details Reason For Visit: (L) RENAL STONES Attending Provider: Ephraim Lopez Primary Care Provider: Radha Mike Home Meds and New Rx's Prescriptions: New phenazopyridine [Pyridium] 200 mg tablet 200 mg PO TID PRNQty: 15 RF: 0 hydrocodone-acetaminophen 5-325 mg tablet 1 - 2 tab PO Q6H PRN (Reason: pain) Qty: 20 RF: 0 Continued phenazopyridine [Pyridium] 100 mg tablet 100 - 200 mg PO TID PRN (Reason: pain) Qty: 12 RF: 1 ketorolac 10 mg tablet 10 mg PO TID PRNRF: 0 lamotrigine 100 mg tablet 100 mg PO DAILY RF: 0 Discontinued tamsulosin 0.4 mg capsule 0.4 mg PO DAILY Qty: 10 RF: 0 sulfamethoxazole-trimethoprim 800-160 mg tablet 1 tab PO BID RF: 0 Discharge Instructions Additional Instructions: No need to strain urine Follow-up 4 to 6 weeks with a renal ultrasound Activity:: Activity as Tolerated Shower/Bathe:: 24 hours Diet:: As Tolerated Discharge Orders Discharge Orders: Discharge Order (Routine); Ordered 11/05/20 Ordered By: Ephraim Lopez DS: Diagnosis Discharge Diagnosis (1) Bilateral kidney stones: Status: Acute
--- NOTE | 2020-11-05 08:43 | W.PM.OP ---
Date of service: 11/05/20 Time of Service: 08:43 Operative Note Operative Note DATE OF PROCEDURE: 11/05/20 PRE-OP DIAGNOSIS: Left renal stones POST-OP DIAGNOSIS: same PROCEDURE: Cystoscopy, remove left ureteral stent, left retrograde pyelogram, left flexible ureteroscopy with extraction of multiple kidney stones SURGEON: Ephraim Lopez ANESTHESIA TYPE: General LMA/ETT Refer to Anesthesia Record ESTIMATED BLOOD LOSS: 10 PATHOLOGY: other (stones for chemical analysis) COMPLICATIONS: None Patient was transported to: PACU Patient's condition: stable Implants: None Indications: This is a 40-year-old female who has a history of bilateral kidney stones. She is required multiple procedures in the past. She presented to our clinic with left-sided renal colic. She had bilateral nonobstructing kidney stones as well as 2 left ureteral stones. She had undergone left distal ureteroscopy with stone extractions. The stone analysis is still pending. We placed a ureteral stent at the time of that surgery. She presents now for stent removal and flexible ureteroscopy on the left side. Findings: Small left sided kidney stones Procedure Description: The patient was brought to the operating room on 11/05/2020. She was given preoperative IV antibiotics. After successful induction of general anesthesia, she was placed in the dorsal lithotomy position. Her genitalia was prepped and draped. 2% Xylocaine jelly was instilled into the urethra to act as a local anesthetic. The 22 Scottish rigid cystoscope was passed through the urethra into the bladder. The bladder was inspected with a 30 degree lens. The left ureteral stent was visualized. There was marked erythema around the left ureteral orifice. The stent was grasped with alligator forceps and removed. I then passed a 6 Scottish access catheter through the cystoscope and maneuvered the tip of the catheter into the left ureteral orifice. I advanced a Glidewire through the lumen of the access catheter. I removed the catheter and replaced it with a dual-lumen catheter. This allowed me to pass a second wire up the ureter. We chose one of the wires as a working wire and the other as a safety wire. I then passed the ureteral access sheath over the working wire. I passed the flexible ureteroscope through the access sheath up to the renal pelvis. I injected Omnipaque through the lumen of the scope to outline the calyces for mapping. I then inspected each of the calyces and identified multiple small renal stones. The stones were grasped in a 0 tip stone basket and removed. The stones were sent to pathology for permanent section. There were also some apparent puctate stone particles within the renal papillae. These were not accessible from the collecting system. With no apparent renal or ureteral injury, we elected not to replace the ureteral stent. We removed the ureteroscope, the access sheath and the safety wire. The patient tolerated this procedure well with no complications.
--- NOTE | 2020-11-05 08:59 | DI.RAD_ITS ---
Exam(s) XR RETROGRADE IN OR EXAM: XR RETROGRADE IN OR CLINICAL HISTORY: Bilateral kidney stones TECHNIQUE: 2D and realtime digital imaging was performed. CONTRAST MATERIAL: Refer to procedure report. COMPARISON: No exams were available for comparison FINDINGS: Fluoroscopy was provided for Dr. Lopez during the performance of a retrograde evaluation of the charmaine l collecting system. Please refer to the procedure report for complete details. Ka,r=2.05 mGy IMPRESSION: RADIATION DOSE DELIVERED:
[2020-11-05] MEDS: fentaNYL 100 MCG/2 ML VIAL IVP (09:11)
[2020-11-05] MEDS: Phenazopyridine 200 MG TAB PO (09:48)
[2020-11-05] MEDS: HYDROcodone 5/Acetaminophen 325 TAB PO ×2 (09:48→10:55)
--- NOTE | 2020-11-05 10:53 | W.ANESPOSTOP ---
Postoperative Evaluation Date, Time and Location Date Performed: 11/05/20 Time Performed: 10:53 Patient Location: Day Surgery Unit Vital Signs Most Recent Imported Vital Signs: Most Recent Vital Signs Temp Pulse Resp BP Pulse Ox 36.3 C L 70 16 121/71 98 11/05/20 10:41 11/05/20 10:41 11/05/20 10:41 11/05/20 10:41 11/05/20 10:41 Pain Score Most Recent Pain Score: Most Recent Pain Score Pain Level 6 11/05/20 10:41 Assessment Mental Status: Awake (Alert & Oriented to Patient Baseline) Airway and Respiratory Function: Patent airway with normal (patient baseline) respiratory exam Cardiovascular Function: Hemodynamically Stable Hydration Status: Adequately Hydrated Nausea & Vomiting: No Nausea or Vomiting Pain: Pain is Moderate or Severe Postoperative Pain Management: Pain being addressed with medication Peripheral Nerve Block: Patient did not receive a nerve block
[2020-11-10 00:42] LABS: Source: Left Kidney
== END 2020-11-05 06:21 | disposition home or self-care (01) ==
PROVIDERS: PCP Nurse Practitioner Family; Visit Provider Urology
PROC: (CPT 52352; principal; 2020-11-05 07:30)
DX: T83.84XA Pain due to genitourinary prosthetic devices, implants and grafts, initial encounter (principal); N20.0 Calculus of kidney; D50.9 Iron deficiency anemia, unspecified; F41.9 Anxiety disorder, unspecified
CPT/HCPCS: 52352; 81025; 74420; 82365; J0690; J1100; J1885; J2001; J2405; J2704; J3010; Q9967

== ENCOUNTER 2020-11-12 20:55 | Emergency (ER) | payer MEDICAID, SELFPAY ==
[2020-11-12 21:03] VITALS: PULSE 81; RESP 16; TEMP 36.8; O2SAT 100
--- NOTE | 2020-11-12 21:15 | DI.CT_ITS ---
Exam(s) CT RENAL COLIC WO EXAM: CT RENAL COLIC WO CLINICAL HISTORY: R flank pain, hx of stone. TECHNIQUE: Imaging Protocol: Axial computed tomography images with coronal and sagittal reformatted images were created and reviewed. COMPARISON: CT RENAL COLIC WO CONTRAST from 11/04/[address] RENAL COLIC WO from 10/28/2020 FINDINGS: ABDOMEN: Lung Bases: Normal where visualized. Liver: Normal density. No measurable mass. Gallbladder and biliary tract: No radiodense calculus or biliary ductal dilation. The gallbladder is contracted. Pancreas: Normal density, no abnormal calcifications or inflammatory process. Spleen: Normal. Kidneys: Normal size, contour and axis.There is bilateral nephrolithiasis. No ureterolithiasis or hy dronephrosis. There is a stable right renal cyst with a thin wall calcification present. Adrenal glands: No mass is seen. Lymph nodes: Within normal limits. Abdominal Aorta: Abdominal portion non-dilated. Minimal atherosclerosis. PELVIS: Bladder:Symmetric distention, no gross wall thickening. Bowel: No obstruction or bowel wall thickening. Appendix is unremarkable. Peritoneal cavity: No ascites, collection or mesenteric inflammatory response. No free air. Reproductive organs: There is a 3.3 cm right adnexal cyst which is likely ovarian. Bones: Within normal limits. Soft Tissues: Within normal limits. IMPRESSION: 1. Bilateral nephrolithiasis. No evidence of ureterolithiasis or hydronephrosis. 2. 3.3 cm right ovarian cyst. RADIATION DOSE DELIVERED: 896.72mGy.cm Total DLP DATA REPOSITORY: All CT scans at this facility are submitted to the National Radiology Data Registry (NRDR) Dose Index Registry (DIR) with the [employer] ([employer]). RADIATION OPTIMIZATION: All CT scans at this facility use at least one of these dose optimization te chniques: automated exposure control; mA and/or kV adjustment per patient size (includes targeted exa ms where dose is matched to clinical indication); or iterative reconstruction.
[2020-11-12 21:28] LABS: Abs Immature Grans 0.04 10^3/uL (0.0-0.06); Absolute Basophil Count 0.05 10^3/uL (0.0-0.2); Absolute Eosinophil Count 0.09 10^3/uL (0.0-0.7); Absolute Lymphocyte Count 2.63 10^3/uL (1.2-3.4); Absolute Monocyte Count 0.54 10^3/uL (0.1-0.8); Absolute Neutrophil Count 5.72 10^3/uL (1.2-6.7); Basophils % 0.6; HCT 37.3 % (36.0-46.0); Immature Grans % 0.4; MCH 27.5 pg (27.0-33.0); MCHC 32.2 % (32.0-36.0); MCV 85.4 fL (80-95); MPV 9.4 fL (8.0-11.0); Nucleated RBC 0 %; Platelet Count 275 10^3/uL (130-400); RBC 4.37 10^6/uL (3.93-5.22); RDW 12.1 % (11.7-14.6); RDW-SD 37.6 fL; WBC 9.07 10^3/uL (4.4-10.8)
[2020-11-12 21:39] LABS: Bilirubin Negative (Negative); Blood Small (Negative); Clarity Clear (Clear); Glucose Negative (Negative); Ketones Negative (Negative); Leukocyte Esterase Negative (Negative); Nitrite Negative (Negative); Specific Gravity 1.025 (1.005-1.025); Urobilinogen 0.2 EU/dL (Up TO 0.2)
[2020-11-12 21:41] LABS: ALT 19 U/L (14-59); AST 10 U/L (15-37); Alkaline Phosphatase 59 U/L (46-116); Anion Gap 6.8 mmol/L (3-11); BUN 12 mg/dL (7-18); Bilirubin, Total 0.3 mg/dL (0.2-1.0); CO2 29.2 mmol/L (21.0-32.0); CREATININE 0.8 mg/dL (0.55-1.02); Calcium 8.9 mg/dL (8.5-10.1); Chloride 105 mmol/L (98-107); Glucose 90 mg/dL (74-106); Potassium 3.9 mmol/L (3.5-5.1); Sodium 141 mmol/L (136-145); Total Protein 7.4 g/dL (6.4-8.2)
[2020-11-12 21:46] LABS: Bacteria Rare HPF (Negative); C & S Indicated? No; Casts Negative LPF (Negative); Crystals Negative HPF (Negative); Epithelial Cells Moderate HPF (Negative); Mucus Negative (Negative); WBC Negative HPF (0-5)
--- NOTE | 2020-11-12 21:54 | ED.GENADUL_ITS ---
Discharge Plan Disposition Patient Disposition: HOME Condition: Stable Discharge Details Clinical Impression: Abdominal pain Primary Care Provider: Radha Mike ED Provider: Nima Condon Home Meds and New Rx's Prescriptions: Continued lamotrigine 100 mg tablet 100 mg PO DAILY RF: 0 hydrocodone-acetaminophen 5-325 mg tablet 1 - 2 tab PO Q6H PRN (Reason: pain) Qty: 20 RF: 0 Discharge Instructions Instructions: Abdominal Pain (ED) Additional Instructions: CT imaging reveals you have a 5 cm right renal cyst, nonobstructing renal calculi, no obstructing urinary calculus or hydronephrosis. Does show you have a 3.3 cm right ovarian cyst however you report that you know this this is nothing new. Laboratory values do not reveal any obvious emergent process. Please watch for new or worsening symptoms and return to the ER for any concerns. Please continue to follow the instructions given to you by Dr. Lopez and contact his office tomorrow for prompt outpatient reevaluation. Discharge Data Discharge Date/Time-TO BE ENTERED AT DEPARTURE: 11/12/20 23:30 Medical Decision Making 40-year-old female, known bilateral renal stones, followed by Dr. Lopez, presents concerned that she may have dropped a stone on the right side. Reports chronic back, flank, abdominal pain the right sided flank pain worse over the past 24 hours or so. She plans to follow with Dr. Lopez tomorrow but is scheduled to work and therefore comes to the ER today requesting a CT knowing that Dr. Lopez will want one tomorrow. Symptoms of nausea, vomiting also associated with patient. She denies any chest pain, shortness of breath, fever, hematuria, diarrhea or constipation. Denies vaginal bleeding or discharge. Will obtain routine laboratory values, give IV fluid, Zofran, Toradol, obtain CT abdomen pelvis renal colic. Patient is agreeable and comfortable with this plan. Laboratory values do not reveal any obvious emergent process. No evidence of leukocytosis. Renal function reveals a creatinine of 0.8 with a GFR greater than 60. Serum hCG negative. Urinalysis clear, negative nitrate. Small blood with 5-10 red cells. Negative white cells. Patient reports moderate relief of her symptoms with IV medications. No vomiting while under my care. She did not appear to be in any distress. Discussed CT findings with patient. She reports that she knows that she has a right ovarian cyst. This is nothing new. Clinically I see no evidence of to rsion. At this time she is comfortable with discharge, was encouraged to return to the ER for new or worsening symptoms. She will contact Dr. Lopez tomorrow for her ongoing bilateral renal stones and worsening right-sided flank discomfort. Medical Records Medical records reviewed: Yes I reviewed the patient's medical records. Imaging Data Radiologic Study: Attestation: I personally reviewed and interpreted this imaging study as follows: Imaging: CT Scan Radiologist's impression: Patient Name: Kayla Menjivar IUnit #: [id number]: ER [facility]ing [facility] [id number]: [facility] ER Primary Care Provider: Hafsa Mike of Exam: 11/12/20Sex: F : 1980Age: 40 Exam(s) a CT:CT renal colic wo Exam(s) CT RENAL COLIC WO EXAM: CT RENAL COLIC WO CLINICAL HISTORY: R flank pain, hx of stone. TECHNIQUE: Imaging Protocol: Axial computed tomography images with coronal and sagittal reformatted images were created and reviewed. COMPARISON: CT RENAL COLIC WO CONTRAST from 11/04/[address] RENAL COLIC WO from 10/28/2020 FINDINGS: ABDOMEN: Lung Bases: Normal where visualized. Liver: Normal density. No measurable mass. Gallbladder and biliary tract: No radiodense calculus or biliary ductal dilation. The gallbladder is contracted. Pancreas: Normal density, no abnormal calcifications or inflammatory process. Spleen: Normal. Kidneys: Normal size, contour and axis.There is bilateral nephrolithiasis. No ureterolithiasis or hydronephrosis. There is a stable right renal cyst with a thin wall calcification present. Adrenal glands: No mass is seen. Lymph nodes: Within normal limits. Abdominal Aorta: Abdominal portion non-dilated. Minimal atherosclerosis. PELVIS: Bladder:Symmetric distention, no gross wall thickening. Bowel: No obstruction or bowel wall thickening. Appendix is unremarkable. Peritoneal cavity: No ascites, collection or mesenteric inflammatory response. No free air. Reproductive organs: There is a 3.3 cm right adnexal cyst which is likely ovarian. Bones: Within normal limits. Soft Tissues: Within normal limits. IMPRESSION: 1. Bilateral nephrolithiasis. No evidence of ureterolithiasis or hydronephrosis. 2. 3.3 cm right ovarian cyst. Lab Data Lab results reviewed: Yes I reviewed the patient's lab results. Labs: Laboratory Tests Range/Units 11/12/20 11/12/20 11/12/20 21:16 21:18 21:18 WBC (4.4-10.8) 10^3/uL 9.07 RBC (3.93-5.22) 10^6/uL 4.37 Hgb (11.2-15.7) g/dL 12.0 Hct (36.0-46.0) % 37.3 MCV (80-95) fL 85.4 MCH (27.0-33.0) pg 27.5 MCHC (32.0-36.0) % 32.2 RDW (11.7-14.6) % 12.1 Plt Count (130-400) 10^3/uL 275 MPV (8.0-11.0) fL 9.4 Immature Gran % 0.4 Neutrophils % 63.0 Lymphocytes % 29.0 Monocytes % 6.0 Eosinophils % 1.0 Basophils % 0.6 Nucleated RBC % % 0 Absolute Neutrophils (1.2-6.7) 10^3/uL 5.72 Absolute Lymphocytes (1.2-3.4) 10^3/uL 2.63 Absolute Monocytes (0.1-0.8) 10^3/uL 0.54 Absolute Eosinophils (0.0-0.7) 10^3/uL 0.09 Absolute Basophils (0.0-0.2) 10^3/uL 0.05 Sodium (136-145) mmol/L 141 Potassium (3.5-5.1) mmol/L 3.9 Chloride (98-107) mmol/L 105 Carbon Dioxide (21.0-32.0) mmol/L 29.2 Anion Gap (3-11) mmol/L 6.8 BUN (7-18) mg/dL 12 Creatinine (0.55-1.02) mg/dL 0.8 Estimated GFR/1.73 m2 (mL/min/1.73m2) >= 60.00 Glucose (74-106) mg/dL 90 Calcium (8.5-10.1) mg/dL 8.9 Total Bilirubin (0.2-1.0) mg/dL 0.3 AST (15-37) U/L 10 L ALT (14-59) U/L 19 Alkaline Phosphatase (46-116) U/L 59 Total Protein (6.4-8.2) g/dL 7.4 Albumin (3.4-5.0) g/dL 4.0 Serum HCG, Qual Urine Color (Yellow) Yellow Urine Clarity (Clear) Clear Urine pH (5-8) 7.0 Ur Specific Minter (1.005-1.025) 1.025 Urine Protein (Negative) mg/dL Negative Urine Ketones (Negative) mg/dL Negative Urine Blood (Negative) Small H Urine Nitrite (Negative) Negative Urine Bilirubin (Negative) Negative Urine Urobilinogen (Up TO 0.2) EU/dL 0.2 Ur Leukocyte Esterase (Negative) Negative Urine RBC (0-2) HPF 5-10 H Urine WBC (0-5) HPF Negative Ur Epithelial Cells (Negative) HPF Moderate Urine Crystals (Negative) HPF Negative Urine Bacteria (Negative) HPF Rare Urine Casts (Negative) LPF Negative Urine Mucus (Negative) Negative Ur Culture Indicated? No Urine Glucose (Negative) mg/dL Negative Range/Units 11/12/20 21:18 WBC (4.4-10.8) 10^3/uL RBC (3.93-5.22) 10^6/uL Hgb (11.2-15.7) g/dL Hct (36.0-46.0) % MCV (80-95) fL MCH (27.0-33.0) pg MCHC (32.0-36.0) % RDW (11.7-14.6) % Plt Count (130-400) 10^3/uL MPV (8.0-11.0) fL Immature Gran % Neutrophils % Lymphocytes % Monocytes % Eosinophils % Basophils % Nucleated RBC % % Absolute Neutrophils (1.2-6.7) 10^3/uL Absolute Lymphocytes (1.2-3.4) 10^3/uL Absolute Monocytes (0.1-0.8) 10^3/uL Absolute Eosinophils (0.0-0.7) 10^3/uL Absolute Basophils (0.0-0.2) 10^3/uL Sodium (136-145) mmol/L Potassium (3.5-5.1) mmol/L Chloride (98-107) mmol/L Carbon Dioxide (21.0-32.0) mmol/L Anion Gap (3-11) mmol/L BUN (7-18) mg/dL Creatinine (0.55-1.02) mg/dL Estimated GFR/1.73 m2 (mL/min/1.73m2) Glucose (74-106) mg/dL Calcium (8.5-10.1) mg/dL Total Bilirubin (0.2-1.0) mg/dL AST (15-37) U/L ALT (14-59) U/L Alkaline Phosphatase (46-116) U/L Total Protein (6.4-8.2) g/dL Albumin (3.4-5.0) g/dL Serum HCG, Qual Negative Urine Color (Yellow) Urine Clarity (Clear) Urine pH (5-8) Ur Specific Minter (1.005-1.025) Urine Protein (Negative) mg/dL Urine Ketones (Negative) mg/dL Urine Blood (Negative) Urine Nitrite (Negative) Urine Bilirubin (Negative) Urine Urobilinogen (Up TO 0.2) EU/dL Ur Leukocyte Esterase (Negative) Urine RBC (0-2) HPF Urine WBC (0-5) HPF Ur Epithelial Cells (Negative) HPF Urine Crystals (Negative) HPF Urine Bacteria (Negative) HPF Urine Casts (Negative) LPF Urine Mucus (Negative) Ur Culture Indicated? Urine Glucose (Negative) mg/dL HPI General Mode of arrival: ambulatory . Date/Time Provider Initiated Documentation: 11/12/20 21:00 . Limitations to Documentation: no limitations . Information obtained by: patient . HPI Narrative: 40-year-old female presents for diffuse back pain bilateral flank pain and abdominal pain that is ongoing but worse over the past 24 hours. She is followed by Dr. Lopez. She plans to be seen by him tomorrow and given her new discomfort assumes he will want a CT. She is concerned that a stone has moved from her right kidney and she is passing it. She states that she cannot miss work so [facility] to do it sometime tomorrow during the day. Patient with a past history of include anxiety, iron deficiency anemia. She denies recent illness or trauma. She denies fever, chest pain, shortness of breath, gross hematuria, diarrhea or constipation. She does report nausea, vomiting earlier today, urinary hesitancy. Patient states that her stones in the past have been complicated requiring intervention through Dr. Lopez. Patient states that her symptoms today are very consistent with her ongoing kidney stone struggles. Related Data Home Medications Medication Instructions Recorded Confirmed lamotrigine 100 mg PO DAILY 10/28/20 11/12/20 hydrocodone-acetaminophen 1 - 2 tab PO Q6H PRN #20 tab 11/05/20 11/12/20 Previous Rx's Medication Instructions Recorded hydrocodone-acetaminophen 1 - 2 tab PO Q6H PRN #20 tab 11/05/20 Allergies Allergy/AdvReac Type Severity Reaction Status Date / Time morphine Allergy Severe Difficulty Unverified 11/05/20 06:37 Breathing, Hives acetaminophen [From Percocet] Allergy Hives Verified 11/12/20 21:11 oxycodone Allergy Itching Unverified 11/05/20 06:37 oxybutynin AdvReac Severe STOPPED Unverified 11/05/20 06:37 ME FROM URINATING tramadol AdvReac Intermediate BRUISES Unverified 11/05/20 06:37 UNDER SKIN General Stated Complaint: FlankPain CIRO: 3 Review of Systems Constitutional Constitutional: Denies fatigue and Denies fever(s) Cardiovascular Cardiovascular: Denies chest pain and Denies dyspnea Respiratory Respiratory: Denies cough and Denies dyspnea Gastrointestinal Gastrointestinal: Reports abdominal pain, Denies constipation, Denies diarrhea, Reports nausea and Reports vomiting Genitourinary Genitourinary: Denies abnormal vaginal bleeding, Denies dysuria, Reports urinary hesitancy and Denies vaginal discharge Musculoskeletal Musculoskeletal: Reports back pain Integumentary/Breasts Skin/Breast: Denies rash Endocrine Endocrine: Denies fatigue [facility] Medical History Anxiety Iron deficiency anemia Schatzki's ring of distal esophagus Surgical History H/O arthroscopic knee surgery H/O laparoscopy History of section History of surgery Bilateral renal stents Hx of tubal ligation Social History Smoking/Tobacco Use Status: Never Smoking risk assessment performed?: Yes Alcohol Intake: never Drug use: Never Substance use type: does not use Do you feel safe at home: Yes Do you feel safe in your relationship?: Yes Exam Const General: cooperative, healthy appearing, comfortable and no acute distress Orientation: alert and awake [facility] Head: normal to inspection, normocephalic and atraumatic Eyes General: appearance normal, both eyes and all related structures Conjunctivae: conjunctivae normal Neck Neck: normal visual inspection, trachea midline and supple Resp Effort & Inspection: normal respiratory effort and able to speak in complete sentences Auscultation: clear to auscultation bilaterally Cardio Rate: regular rate Rhythm: regular rhythm GI Inspection: normal to inspection Palpation: soft, not firm, no guarding, no pulsatile masses and tender other (Diffuse mild, worse on the right flank); not at McBurney's point, Mckeon's sign negative and with no rebound tenderness Auscultation: normal bowel sounds Back/Spine/Pelvis Back: no CVA tenderness and back tenderness (Diffuse. Slightly worse on the right side. No midline point tenderness.) Skin General skin exam: no rashes or lesions noted Neuro General: patient alert, patient awake, moves all extremities and no focal motor deficits Cognition: normal cognition Speech: speech normal Gait: normal gait Sensory Exam: no sensory deficits noted Psych Appearance: grossly normal Mental Status: mental status grossly normal Course Vital Signs Vital signs: Vital Signs Temperature 36.8 C 11/12/20 21:03 Pulse 81 11/12/20 21:03 Respiratory Rate 16 11/12/20 21:03 Pulse Oximetry 100 11/12/20 21:03 Temperature 36.8 C 11/12/20 21:03 Temperature Source Skin 11/12/20 21:03 Pulse 81 11/12/20 21:03 Respiratory Rate 16 11/12/20 21:03 Respiratory Effort Non-Labored 11/12/20 21:09 Blood Pressure Position Sitting 11/12/20 21:03 Pulse Oximetry 100 11/12/20 21:03 Oxygen Delivery Method Room Air 11/12/20 21:03 Oxygen Flow Rate 0 11/12/20 21:03 Pain Level 8 11/12/20 21:09 Lab/Test Results Lab/Test Results: Laboratory Tests Range/Units 11/12/20 11/12/20 11/12/20 21:16 21:18 21:18 WBC (4.4-10.8) 10^3/uL 9.07 RBC (3.93-5.22) 10^6/uL 4.37 Hgb (11.2-15.7) g/dL 12.0 Hct (36.0-46.0) % 37.3 MCV (80-95) fL 85.4 MCH (27.0-33.0) pg 27.5 MCHC (32.0-36.0) % 32.2 RDW (11.7-14.6) % 12.1 Plt Count (130-400) 10^3/uL 275 MPV (8.0-11.0) fL 9.4 Immature Gran % 0.4 Neutrophils % 63.0 Lymphocytes % 29.0 Monocytes % 6.0 Eosinophils % 1.0 Basophils % 0.6 Nucleated RBC % % 0 Absolute Neutrophils (1.2-6.7) 10^3/uL 5.72 Absolute Lymphocytes (1.2-3.4) 10^3/uL 2.63 Absolute Monocytes (0.1-0.8) 10^3/uL 0.54 Absolute Eosinophils (0.0-0.7) 10^3/uL 0.09 Absolute Basophils (0.0-0.2) 10^3/uL 0.05 Sodium (136-145) mmol/L 141 Potassium (3.5-5.1) mmol/L 3.9 Chloride (98-107) mmol/L 105 Carbon Dioxide (21.0-32.0) mmol/L 29.2 Anion Gap (3-11) mmol/L 6.8 BUN (7-18) mg/dL 12 Creatinine (0.55-1.02) mg/dL 0.8 Estimated GFR/1.73 m2 (mL/min/1.73m2) >= 60.00 Glucose (74-106) mg/dL 90 Calcium (8.5-10.1) mg/dL 8.9 Total Bilirubin (0.2-1.0) mg/dL 0.3 AST (15-37) U/L 10 L ALT (14-59) U/L 19 Alkaline Phosphatase (46-116) U/L 59 Total Protein (6.4-8.2) g/dL 7.4 Albumin (3.4-5.0) g/dL 4.0 Urine Color (Yellow) Yellow Urine Clarity (Clear) Clear Urine pH (5-8) 7.0 Ur Specific Minter (1.005-1.025) 1.025 Urine Protein (Negative) mg/dL Negative Urine Ketones (Negative) mg/dL Negative Urine Blood (Negative) Small H Urine Nitrite (Negative) Negative Urine Bilirubin (Negative) Negative Urine Urobilinogen (Up TO 0.2) EU/dL 0.2 Ur Leukocyte Esterase (Negative) Negative Urine RBC (0-2) HPF 5-10 H Urine WBC (0-5) HPF Negative Ur Epithelial Cells (Negative) HPF Moderate Urine Crystals (Negative) HPF Negative Urine Bacteria (Negative) HPF Rare Urine Casts (Negative) LPF Negative Urine Mucus (Negative) Negative Ur Culture Indicated? No Urine Glucose (Negative) mg/dL Negative
[2020-11-12] MEDS: Ondansetron 4 MG/2 ML VIAL IVP (21:58)
[2020-11-12] MEDS: Normal Saline 1,000 ML 1000 ML IV (21:58)
[2020-11-12] MEDS: Ketorolac 30 MG/ML VIAL IVP (21:58)
[2020-11-12 22:19] LABS: HCG Qual (Serum) Negative
[2020-11-12 22:32] VITALS: BP 123/76; PULSE 68; RESP 16; TEMP 37.1; O2SAT 98
--- NOTE | 2020-11-12 22:42 | DI.VRAD_ITS ---
PROCEDURE INFORMATION: Exam: CT Abdomen And Pelvis Without Contrast Exam date and time: 11/12/2020 9:18 PM Age: 40 years old Clinical indication: Other: Right flank pain; Patient HX: History of stones TECHNIQUE: Imaging protocol: Computed tomography of the abdomen and pelvis without contrast. COMPARISON: CT RENAL COLIC WO 10/24/2020 5:01 PM FINDINGS: Liver: Normal. No mass. Gallbladder and bile ducts: Normal. No calcified stones. No ductal dilation. Pancreas: Normal. No ductal dilation. Spleen: Normal. No splenomegaly. Adrenal glands: Normal. No mass. Kidneys and ureters: 5 cm right renal cyst. Nonobstructing renal calculi. No obstructing urinary calculus or hydronephrosis. Stomach and bowel: Unremarkable. No obstruction. No mucosal thickening. Appendix: No evidence of appendicitis. Intraperitoneal space: Unremarkable. No free air. No significant fluid collection. Vasculature: Unremarkable. No abdominal aortic aneurysm. Lymph nodes: Unremarkable. No enlarged lymph nodes. Urinary bladder: Unremarkable as visualized. Reproductive: 3.3 cm right ovarian cyst suggested. Bones/joints: Unremarkable. No acute fracture. Soft tissues: Unremarkable. IMPRESSION: 3.3 cm right ovarian cyst suggested. Dictated and Authenticated by: Sid Millan MD. Ordering:BENNIE Herring MD
[2020-11-12 23:31] VITALS: BP 120/82; PULSE 68; O2SAT 100
== END 2020-11-12 23:30 | disposition home or self-care (01) ==
PROVIDERS: Emergency Provider Physician Assistant; PCP Nurse Practitioner Family
DX: R10.9 Unspecified abdominal pain (principal)
CPT/HCPCS: 80053; 96361; 96374; 96375; 99284; 74176; 81003; 81015; 84703; 85025; 99283; J1885; J2405

== ENCOUNTER 2020-12-15 01:55 | Outpatient (CLI) | payer MEDICAID, SELFPAY ==
--- NOTE | 2020-12-15 08:30 | DI.US_ITS ---
Exam(s) US RENAL EXAM: US RENAL CLINICAL HISTORY: r/o hydronephrosis after ureteroscopy,CALCULUS LT URETER,N20.1. TECHNIQUE: Rivas scale, color and spectral Doppler were used. COMPARISON: CT CT RENAL COLIC WO from 11/12/[address] RENAL COLIC WO from 11/12/2020 FINDINGS: Renal size in cm: Right: 14.8 left: 11.3. No perinephric collections. Echogenicity: Normal Hydronephrosis: No Cyst or mass: 2 adjacent cysts lower pole right kidney, measuring 5.9 and 3.3 cm in greatest dimensio n. Nephrolithiasis: 3 millimeter stone lower pole right kidney. Tiny stone upper pole right kidney. 4 millimeter stone lower pole right kidney. Bladder:Nearly empty not well evaluated. IMPRESSION: Small nonobstructing bilateral renal calculi. No evidence of hydronephrosis. Right renal cysts. DATA REPOSITORY:
== END 2020-12-15 02:15 ==
PROVIDERS: PCP Nurse Practitioner Family; Visit Provider Urology
DX: N20.2 Calculus of kidney with calculus of ureter (principal); N28.1 Cyst of kidney, acquired
CPT/HCPCS: 76770

== ENCOUNTER 2021-04-13 14:58 | Outpatient (REF) | payer MEDICAID, SELFPAY ==
[2021-04-13 14:37] LABS: Abs Immature Grans 0.02 10^3/uL (0.0-0.06); Absolute Basophil Count 0.04 10^3/uL (0.0-0.2); Absolute Eosinophil Count 0.07 10^3/uL (0.0-0.7); Absolute Lymphocyte Count 1.45 10^3/uL (1.2-3.4); Absolute Monocyte Count 0.42 10^3/uL (0.1-0.8); Absolute Neutrophil Count 3.27 10^3/uL (1.2-6.7); Basophils % 0.8; Eosinophils % 1.3; HCT 34.3 % (36.0-46.0); HGB 9.8 g/dL (11.2-15.7); Immature Grans % 0.4; Lymphocytes % 27.5; MCH 21.4 pg (27.0-33.0); MCHC 28.6 % (32.0-36.0); MCV 74.9 fL (80-95); MPV 10.7 fL (8.0-11.0); Nucleated RBC 0 %; Platelet Count 294 10^3/uL (130-400); RBC 4.58 10^6/uL (3.93-5.22); RDW 13.7 % (11.7-14.6); RDW-SD 36.4 fL; WBC 5.27 10^3/uL (4.4-10.8)
[2021-04-13 15:25] LABS: Diff Comment Diff Reviewed; Hypochromasia 1+; Microcytosis 1+
[2021-04-13 15:26] LABS: Poikilocytes 1+
[2021-04-14 00:10] LABS: Ferritin 3 ng/mL (8-252); TSH (W/Ref FT4) 0.37 uIU/mL (0.36-3.74)
[2021-04-14 00:11] LABS: Iron 13 ug/dL (50-170); Total Iron Binding Capacity 419 ug/dL (250-450); Transferrin Sat 3 % (15-50)
== END 2021-04-13 14:59 | disposition home or self-care (01) ==
LOC: NCHCN 14:58
PROVIDERS: PCP Nurse Practitioner Family; Visit Provider Nurse Practitioner Family
DX: D50.9 Iron deficiency anemia, unspecified (principal); E04.9 Nontoxic goiter, unspecified; R13.10 Dysphagia, unspecified; R06.02 Shortness of breath; F41.8 Other specified anxiety disorders; K30 Functional dyspepsia
CPT/HCPCS: 82728; 83540; 83550; 84443; 85025

== ENCOUNTER 2021-07-12 10:29 | Outpatient (CLI) | payer MEDICAID, SELFPAY ==
[2021-07-12 09:45] LABS: Abs Immature Grans 0.02 10^3/uL (0.0-0.06); Absolute Basophil Count 0.04 10^3/uL (0.0-0.2); Absolute Lymphocyte Count 1.37 10^3/uL (1.2-3.4); Absolute Monocyte Count 0.31 10^3/uL (0.1-0.8); Absolute Neutrophil Count 2.73 10^3/uL (1.2-6.7); Basophils % 0.9; Eosinophils % 2.2; HCT 38.9 % (36.0-46.0); HGB 12.1 g/dL (11.2-15.7); Immature Grans % 0.4; MCH 24.8 pg (27.0-33.0); MCHC 31.1 % (32.0-36.0); MCV 79.7 fL (80-95); MPV 9.5 fL (8.0-11.0); Monocytes % 6.8; Neutrophils % 59.7; Nucleated RBC 0 %; Platelet Count 255 10^3/uL (130-400); RBC 4.88 10^6/uL (3.93-5.22); RDW 20.5 % (11.7-14.6); RDW-SD 59.3 fL; Reticulocyte 0.9 % (0.5-2.4); WBC 4.57 10^3/uL (4.4-10.8)
[2021-07-12 09:57] LABS: Anisocytosis 2+; Diff Comment RBC Morph Reviewed
[2021-07-12 10:11] LABS: Ferritin 123 ng/mL (8-252); Folate 7.9 ng/mL (8.6-20.0)
[2021-07-12 10:29] LABS: Iron 53 ug/dL (50-170); Total Iron Binding Capacity 298 ug/dL (250-450)
== END 2021-07-12 10:30 | disposition home or self-care (01) ==
LOC: LBO 10:33
PROVIDERS: PCP Nurse Practitioner Family; Visit Provider Internal Medicine Medical Oncology
DX: D50.0 Iron deficiency anemia secondary to blood loss (chronic) (principal)
CPT/HCPCS: 36415; 82728; 82746; 83540; 83550; 85025; 85045

== ENCOUNTER 2021-11-15 09:09 | Outpatient (REF) | payer MEDICAID, SELFPAY ==
[2021-11-15 14:59] LABS: Abs Immature Grans 0.02 10^3/uL (0.0-0.06); Absolute Basophil Count 0.06 10^3/uL (0.0-0.2); Absolute Eosinophil Count 0.11 10^3/uL (0.0-0.7); Absolute Lymphocyte Count 1.43 10^3/uL (1.2-3.4); Absolute Monocyte Count 0.41 10^3/uL (0.1-0.8); Absolute Neutrophil Count 2.81 10^3/uL (1.2-6.7); Basophils % 1.2; Eosinophils % 2.3; HCT 39.6 % (36.0-46.0); HGB 13.1 g/dL (11.2-15.7); Immature Grans % 0.4; Lymphocytes % 29.5; MCH 28.2 pg (27.0-33.0); MCHC 33.1 % (32.0-36.0); MCV 85 fL (80-95); MPV 11.2 fL (8.0-11.0); Monocytes % 8.5; Neutrophils % 58.1; Platelet Count 229 10^3/uL (130-400); RBC 4.65 10^6/uL (3.93-5.22); RDW 12.2 % (11.7-14.6); RDW-SD 37.3 fL; WBC 4.84 10^3/uL (4.4-10.8)
[2021-11-15 15:38] LABS: FREE T4 0.88 ng/dL (0.76-1.46); Ferritin 14 ng/mL (8-252); TSH 0.53 uIU/mL (0.36-3.74)
[2021-11-15 20:53] LABS: Iron 95 ug/dL (50-170); Total Iron Binding Capacity 420 ug/dL (250-450); Transferrin Sat 23 % (15-50)
[2021-11-15 22:40] LABS: T3,Free 3.8 pg/mL (2.8-5.3)
== END 2021-11-15 09:10 | disposition home or self-care (01) ==
LOC: NCHCN 09:09
PROVIDERS: PCP Nurse Practitioner Family; Visit Provider Nurse Practitioner Family
DX: D50.9 Iron deficiency anemia, unspecified (principal); R13.10 Dysphagia, unspecified; E04.9 Nontoxic goiter, unspecified; K30 Functional dyspepsia; L40.9 Psoriasis, unspecified; R51.9 Headache, unspecified; F43.10 Post-traumatic stress disorder, unspecified; F41.8 Other specified anxiety disorders
CPT/HCPCS: 82728; 83540; 83550; 84439; 84443; 84481; 85025

== ENCOUNTER 2022-01-04 17:48 | Emergency (ER) | payer MEDICAID, SELFPAY ==
[2022-01-04 17:59] VITALS: BP 125/91; PULSE 81; RESP 16; TEMP 36; O2SAT 98
--- NOTE | 2022-01-04 18:15 | DI.RAD_ITS ---
Exam(s) XR FEMUR LT EXAM: XR FEMUR LT CLINICAL HISTORY: fall/Trauma. TECHNIQUE: 2D digital imaging was performed. AP and lateral views. COMPARISON: None. FINDINGS: BONES: No acute fracture is present. No bony destructive lesion is seen. JOINTS: No dislocation present. SOFT TISSUE: Normal. IMPRESSION: No evidence of acute fracture, dislocation, or subluxation. DATA REPOSITORY: RADIATION DOSE DELIVERED:
--- NOTE | 2022-01-04 18:15 | DI.RAD_ITS ---
Exam(s) XR FOOT LT COMPLETE EXAM: XR FOOT LT COMPLETE CLINICAL HISTORY: fall/Trauma. TECHNIQUE: 2D digital imaging was performed. Three views. COMPARISON: No exams were available for comparison FINDINGS: BONES: No acute fracture is present. No bony destructive lesion is seen. JOINTS: No dislocation present. SOFT TISSUE: Normal. IMPRESSION: Unremarkable radiographs of the left foot. DATA REPOSITORY: RADIATION DOSE DELIVERED:
--- NOTE | 2022-01-04 18:15 | DI.RAD_ITS ---
Exam(s) XR ANKLE LT COMPLETE EXAM: XR ANKLE LT COMPLETE CLINICAL HISTORY: fall/Trauma TECHNIQUE: 2D digital imaging was performed. Three views. COMPARISON: CR RIGHT ANKLE COMPLETE from 02/12/2017 FINDINGS: BONES: No acute fracture is present. No bony destructive lesion is seen. JOINTS:The ankle mortise is normally aligned. SOFT TISSUE: Normal. IMPRESSION: Unremarkable radiographs of the left ankle. DATA REPOSITORY: RADIATION DOSE DELIVERED:
--- NOTE | 2022-01-04 18:15 | DI.RAD_ITS ---
Exam(s) XR TIB/FIB LT EXAM: XR TIB/FIB LT CLINICAL HISTORY: fall/Trauma. TECHNIQUE: 2D digital imaging was performed COMPARISON: CR,XR XR FEMUR LT from 01/04/2022 FINDINGS: BONES: No acute fracture is present. No bony destructive lesion is seen. Visualized portion of knee a nd ankle joints are unremarkable. SOFT TISSUE: Normal. IMPRESSION: Unremarkable radiographs of the left tibia and fibula. DATA REPOSITORY: RADIATION DOSE DELIVERED:
--- NOTE | 2022-01-04 18:15 | DI.RAD_ITS ---
Exam(s) XR KNEE LT 3V AP,LAT,SUGEY EXAM: XR KNEE LT 3V AP,LAT,SUGEY CLINICAL HISTORY: fall/Trauma. TECHNIQUE: 2D digital imaging was performed. Three views. COMPARISON: No exams were available for comparison FINDINGS: BONES: No acute fracture is present. No bony destructive lesion is seen. JOINTS: The knee is normally aligned. No joint effusion is seen. Minimal degenerative changes. SOFT TISSUE: Normal. IMPRESSION: Normal radiographs of the left knee. DATA REPOSITORY: RADIATION DOSE DELIVERED:
[2022-01-04] MEDS: Ketorolac 30 MG/ML VIAL IM (18:50)
--- NOTE | 2022-01-04 20:33 | DI.VRAD_ITS ---
PROCEDURE INFORMATION: Exam: XR Left Foot Exam date and time: 01/04/2022 7:11 PM Age: 41 years old Clinical indication: Injury or trauma; Blunt trauma; Foot; Left; Injury date: 01/04/22; Injury details: Fall down stairs early am, pain, difficulty bending knee, unable to bear weight TECHNIQUE: Imaging protocol: Radiologic exam of the Left foot. Views: 3 or more views. COMPARISON: CR XR ANKLE LT COMPLETE 01/04/2022 7:03 PM FINDINGS: Bones/joints: No acute fracture. Mild hallux valgus and hammertoe deformities. Soft tissues: Normal. IMPRESSION: No acute findings. Dictated and Authenticated by: Eloy Tovar MD. Ordering:JOSE J Sweeney MD
--- NOTE | 2022-01-04 20:33 | DI.VRAD_ITS ---
PROCEDURE INFORMATION: Exam: XR Left Ankle Exam date and time: 01/04/2022 7:03 PM Age: 41 years old Clinical indication: Injury or trauma; Blunt trauma; Ankle; Left; Injury date: 01/04/22; Injury details: Fall down stairs early am, pain, difficulty bending knee, unable to bear weight TECHNIQUE: Imaging protocol: Radiologic exam of the Left ankle. Views: 3 or more views. COMPARISON: CR XR TIB/FIB LT 01/04/2022 7:02 PM FINDINGS: Bones/joints: Normal. Soft tissues: Normal. IMPRESSION: No acute findings. Dictated and Authenticated by: Eloy Tovar MD. Ordering:JOSE J Sweeney MD
--- NOTE | 2022-01-04 20:34 | DI.VRAD_ITS ---
PROCEDURE INFORMATION: Exam: XR Left Tibia and Fibula Exam date and time: 01/04/2022 7:02 PM Age: 41 years old Clinical indication: Injury or trauma; Blunt trauma; Lower leg; Left; Injury date: 01/04/22; Injury details: Fall down stairs early am, pain, difficulty bending knee, unable to bear weight TECHNIQUE: Imaging protocol: Radiologic exam of the Left tibia and fibula. Views: 2 views. COMPARISON: CR XR KNEE LT 3V AP,LAT,SUGEY 01/04/2022 6:59 PM, reviewed in conjunction with concurrent x-ray examination of left ankle FINDINGS: Bones/joints: Normal. Soft tissues: Normal. IMPRESSION: No acute findings. Dictated and Authenticated by: Eloy Tovar MD. Ordering:JOSE J Sweeney MD
--- NOTE | 2022-01-04 20:35 | DI.VRAD_ITS ---
PROCEDURE INFORMATION: Exam: XR Left Knee Exam date and time: 01/04/2022 6:59 PM Age: 41 years old Clinical indication: Injury or trauma; Blunt trauma; Left; Injury date: 01/04/22; Injury details: Fall down stairs early am, pain, difficulty bending knee, unable to bear weight TECHNIQUE: Imaging protocol: Radiologic exam of the Left knee. Views: 3 views. COMPARISON: CR XR FEMUR LT 01/04/2022 6:57 PM, reviewed in conjunction with concurrent x-ray study of left tibia and fibula FINDINGS: Bones/joints: Normal. Soft tissues: Normal. IMPRESSION: No acute findings. Dictated and Authenticated by: Eloy Tovar MD. Ordering:JOSE J Sweeney MD
--- NOTE | 2022-01-04 20:36 | DI.VRAD_ITS ---
PROCEDURE INFORMATION: Exam: XR Left Femur Exam date and time: 01/04/2022 6:57 PM Age: 41 years old Clinical indication: Injury or trauma; Blunt trauma; Thigh or upper leg; Left; Injury date: 01/04/22; Injury details: Fall down stairs early am, pain, difficulty bending knee, unable to bear weight TECHNIQUE: Imaging protocol: Radiologic exam of the Left femur. Views: 2 views. COMPARISON: CT RENAL COLIC WO 11/12/2020 10:13 PM, reviewed in conjunction with concurrent x-ray study of the left knee FINDINGS: Bones/joints: Unremarkable. No acute fracture. Soft tissues: Unremarkable. IMPRESSION: No acute findings. Dictated and Authenticated by: Eloy Tovar MD. Ordering:JOSE J Sweeney MD
--- NOTE | 2022-01-04 20:53 | ED.GENADUL_ITS ---
Discharge Plan Disposition Patient Disposition: HOME Condition: Stable Discharge Details Clinical Impression: Patellar tendon rupture Primary Care Provider: Radha Mike ED Provider: Patel Ramon Home Meds and New Rx's Prescriptions: New diclofenac potassium 50 mg tablet 50 mg PO TID PRNQty: 15 0RF Continued lamotrigine 100 mg tablet 100 mg PO DAILY Discontinued ibuprofen 200 mg Tablet 800 mg PO TID PRN Discharge Instructions Instructions: Tendon Rupture (ED) Additional Instructions: While on the prescribed pain medication please do not take any further NSAIDs such as ibuprofen, Aleve, aspirin, or other related medications. It is important that you keep the knee immobilizer on and stay nonweightbearing until you are seen by orthopedist for follow-up appointment. If you develop any new or significant worsening of your symptoms please return immediately to the emergency department for reassessment. Referrals: [facility] [Provider Group] (Please call the office tomorrow for arrangement of follow-up appointment) Medical Decision Making Patient presenting to the emergency department for chief complaint of left leg injury. Patient reports prior after missing a step yesterday on the stairs. The left leg was significantly pulled behind her during the incident. Patient does state slight shoulder discomfort with movement but states more that was due to her attempting to hold onto the handrail. Denies any other injury or trauma, loss of consciousness or other complaint. Physical exam is difficult to fully obtain given any palpation of soft tissue or bony prominences elicits significant pain per patient report. Unable to perform range of motion or ligamentous testing due to pain level. Patient reporting pain from the mid femur all the way down to the foot with palpation of both anterior or posterior aspects. Patient is unable to flex or extend knee off of that. We will perform radiological imaging of femur, knee, tib-fib, ankle, and foot. Patient given ketorolac IM pending results. Review of radiological imaging along with radiologist interpretation shows no acute findings noted. I am slightly concerned due to patella seeming to be slightly higher riding than expected. This could explain patient's difficulty with range of motion and diffuse pain from the mid femur down. Concern for possible patellar tendon injury/rupture. Will place patient in knee immobilization and crutches. Patient placed on the orthopedic follow-up list. Patient did report that ketorolac did seem to help better than the ibuprofen she took earlier this morning. Due to patient's other allergies and intolerances we will give patient prescription for diclofenac. After discussion of diagnosis and plan of care patient has no further needs, questions, or concerns and states clear understanding to return to the emergency department for any worsening symptoms. This documentation was generated using [email or web address]comation system, please disregard any oddities of phrase or misspellings. Imaging Data Radiologic Study: Attestation: I personally reviewed and interpreted this imaging study as follows: Imaging: X-Ray Radiologist's impression: Reviewed imaging for femur, knee, tib-fib, ankle, foot. No acute findings noted as per virtual radiologist interpretation HPI General Mode of arrival: wheelchair . Date/Time Provider Initiated Documentation: 01/04/22 18:25 . Limitations to Documentation: no limitations . Information obtained by: patient and RN notes reviewed . History of Present Illness 41 year old F presents to the emergency department with the chief complaint of Left leg injury due to fall, described as severe, with intensity rated at 9. Quality is described as aching and sharp, and is localized to the left and lower extremity. Patient reports no radiation. Patient started experiencing this day(s) (1) and it has been constant. Immobilization improves symptom(s), Movement worsens symptoms . Patient notes no other symptoms.. Patient did receive the following treatments prior to arrival, NSAID Related Data Home Medications Medication Instructions Recorded Confirmed lamotrigine 100 mg tablet 100 mg PO DAILY 10/28/20 01/04/22 diclofenac potassium 50 mg tablet 50 mg PO TID PRN #15 tabs 01/04/22 Previous Rx's Medication Instructions Recorded diclofenac potassium 50 mg tablet 50 mg PO TID PRN #15 tabs 01/04/22 Allergies Allergy/AdvReac Type Severity Reaction Status Date / Time morphine Allergy Severe Difficulty Unverified 01/04/22 18:02 Breathing, Hives acetaminophen [From Percocet] Allergy Hives Verified 01/04/22 18:02 oxycodone Allergy Itching Unverified 01/04/22 18:02 oxybutynin AdvReac Severe STOPPED Unverified 01/04/22 18:02 ME FROM URINATING tramadol AdvReac Intermediate BRUISES Unverified 01/04/22 18:02 UNDER SKIN General Stated Complaint: Orthopedic CIRO: 4 Review of Systems Constitutional Constitutional: Denies frequent falls, Denies headache(s) and Denies malaise Eyes Eyes: Denies change in vision ENT Ears, Nose, Mouth, and Throat: Denies dizziness, Denies facial pain, Denies headache(s) and Denies nasal trauma Cardiovascular Cardiovascular: Denies chest pain, Denies syncope and Denies dyspnea Respiratory Respiratory: Denies cough, Denies pain on inspiration and Denies dyspnea Gastrointestinal Gastrointestinal: Denies abdominal pain and Denies vomiting Genitourinary Genitourinary: Reports system reviewed and no additional complaints, except as documented Musculoskeletal Musculoskeletal: Reports as per HPI, Denies back pain, Reports arthralgias, Reports limited range of motion and Reports tingling Integumentary/Breasts Skin/Breast: Denies unusual bruising and Denies wounds Neurologic Neurologic: Denies confusion, Denies dizziness, Denies syncope, Denies frequent falls, Denies headache(s) and Reports tingling Psychiatric Psychiatric: Denies confusion PFSH All Active Problems Patellar tendon rupture (Acute) Abdominal pain (Acute) Bilateral kidney stones (Acute) Cyst of right kidney (Acute) Calculus of left ureter (Acute) Medical History Anxiety Iron deficiency anemia Schatzki's ring of distal esophagus Surgical History H/O arthroscopic knee surgery H/O laparoscopy History of section History of surgery Bilateral renal stents Hx of tubal ligation Social History Smoking/Tobacco Use Status: Never Smoking risk assessment performed?: Yes Alcohol Intake: never Drug use: Never Substance use type: does not use Do you feel safe at home: Yes Do you feel safe in your relationship?: Yes Exam Narrative Exam Narrative: Exam of left lower extremity limited by diffuse and significant tenderness/pain to both movement and slight palpation Const General: cooperative, no acute distress and not ill appearing Orientation: alert, awake and oriented x3 Resp Effort & Inspection: normal respiratory effort, able to speak in complete sentences and no respiratory distress Cardio Rate: regular rate Rhythm: regular rhythm Pulses: posterior tibial pulses present and dorsalis pedis present Skin General skin exam: no rashes or lesions noted Neuro General: patient alert, patient awake, patient oriented x3, moves all extremities and no focal motor deficits Sensory Exam: no sensory deficits noted Extrem General: normal exam except as noted Left lower extremity: hip/thigh Details: tenderness, knee Details: tenderness, lower leg Details: tenderness, ankle Details: tenderness and foot Details: normal capillary refill, tenderness, vascular exam Details: dorsalis pedis pulse present and posterior tibial pulse present and motor-sensory exam Details: two point discrimination normal and light-touch normal Course Vital Signs Vital signs: Vital Signs Temperature 36.0 C L 01/04/22 17:59 Pulse 81 01/04/22 17:59 Respiratory Rate 16 01/04/22 17:59 Blood Pressure 125/91 H 01/04/22 17:59 Pulse Oximetry 98 01/04/22 17:59 Temperature 36.0 C L 01/04/22 17:59 Temperature Source Tympanic 01/04/22 17:59 Pulse 81 01/04/22 17:59 Respiratory Rate 16 01/04/22 17:59 Respiratory Effort Non-Labored 01/04/22 18:01 Blood Pressure 125/91 H 01/04/22 17:59 Blood Pressure Position Sitting 01/04/22 17:59 Pulse Oximetry 98 01/04/22 17:59 Oxygen Delivery Method Room Air 01/04/22 17:59 Oxygen Flow Rate 0 01/04/22 17:59 Pain Level 9 01/04/22 17:59
== END 2022-01-04 21:05 | disposition home or self-care (01) ==
PROVIDERS: Emergency Provider Nurse Practitioner Family; PCP Nurse Practitioner Family
DX: S76.112A Strain of left quadriceps muscle, fascia and tendon, initial encounter (principal); W10.8XXA Fall (on) (from) other stairs and steps, initial encounter
CPT/HCPCS: 29505; 73552; 73562; 96372; 99284; 73590; 73610; 73630; 99283; J1885

== ENCOUNTER → 2022-01-11 02:28 | Outpatient (CLI) | payer MEDICAID, SELFPAY ==
--- NOTE | 2022-01-11 07:00 | DI.MRI_ITS ---
Exam(s) MR LOWER JOINT LT WO EXAM: MR LOWER JOINT LT WO CLINICAL HISTORY: traumatic injury,patellar tendon rupture, internal derangement, m23.92,. TECHNIQUE: Multiplanar multisequence MRI was performed. COMPARISON: CR,XR XR FEMUR LT from 01/04/2022 CR,XR XR KNEE LT 3V AP,LAT,SUGEY from 01/04/2022 FINDINGS: BONES: There is mild edema within the marrow of the lateral patellar facet. This could represent a c ontusion. Cartilage: Articular cartilage of the patella shows marked thinning extending down to bone at the lat eral facet and apex. There is underlying abnormal high signal in the marrow.. There is also thinnin g of the cartilage overlying medial patellar facet. Minimal amount of joint fluid is present. Cartilage overlying femoral condyles and tibial plateaus are intact. TENDONS: Extensor mechanism: Unremarkable. Medial retinaculum: Unremarkable. Lateral retinaculum: Unremarkable. Popliteus: Unremarkable. MUSCLES: Unremarkable. MENISCI: The medial meniscus is unremarkable. The lateral meniscus is unremarkable. SOFT TISSUES: Mild prepatellar edema. LIGAMENTS: Anterior Cruciate: Unremarkable. Posterior Cruciate: Unremarkable. Medial Collateral:Mild surrounding edema. No focal tear. Lateral Collateral: Unremarkable. 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 Contusion of the inferolateral pole of the patella. No evidence of patellar tendon o r retinacular tear. DATA REPOSITORY:
== END ==
PROVIDERS: PCP Nurse Practitioner Family; Visit Provider Student in an Organized Health Care Education/Training Program
DX: M22.42 Chondromalacia patellae, left knee
CPT/HCPCS: 73721

== ENCOUNTER 2022-05-13 11:34 | Outpatient (REF) | payer MEDICAID, SELFPAY ==
[2022-05-13 14:12] LABS: Abs Immature Grans 0.02 10^3/uL (0.0-0.06); Absolute Basophil Count 0.05 10^3/uL (0.0-0.2); Absolute Eosinophil Count 0.02 10^3/uL (0.0-0.7); Absolute Lymphocyte Count 1.45 10^3/uL (1.2-3.4); Absolute Monocyte Count 0.59 10^3/uL (0.1-0.8); Absolute Neutrophil Count 5.26 10^3/uL (1.2-6.7); Basophils % 0.7; Eosinophils % 0.3; HGB 11.1 g/dL (11.2-15.7); Immature Grans % 0.3; Lymphocytes % 19.6; MCH 22.6 pg (27.0-33.0); MCHC 30.8 % (32.0-36.0); MCV 73 fL (80-95); MPV 10.8 fL (8.0-11.0); Neutrophils % 71.1; Platelet Count 344 10^3/uL (130-400); RBC 4.92 10^6/uL (3.93-5.22); RDW-SD 37.1 fL; WBC 7.39 10^3/uL (4.4-10.8)
[2022-05-13 14:19] LABS: Diff Comment RBC Morph Reviewed
[2022-05-13 14:20] LABS: Microcytosis 2+
[2022-05-13 14:26] LABS: Iron 20 ug/dL (50-170); Total Iron Binding Capacity 450 ug/dL (250-450); Transferrin Sat 4 % (15-50)
[2022-05-13 14:39] LABS: Ferritin 18 ng/mL (8-252)
== END 2022-05-13 11:35 | disposition home or self-care (01) ==
LOC: NCHCN 11:34
PROVIDERS: PCP Nurse Practitioner Family; Visit Provider Nurse Practitioner Family
DX: D50.9 Iron deficiency anemia, unspecified (principal); R13.10 Dysphagia, unspecified; E04.9 Nontoxic goiter, unspecified; K30 Functional dyspepsia; R00.2 Palpitations; N20.0 Calculus of kidney; F41.8 Other specified anxiety disorders
CPT/HCPCS: 82728; 83540; 83550; 85025

== ENCOUNTER 2022-10-17 15:46 | Outpatient (REF) | payer MEDICAID, SELFPAY ==
[2022-10-17 21:01] LABS: Abs Immature Grans 0.02 10^3/uL (0.0-0.06); Absolute Basophil Count 0.06 10^3/uL (0.0-0.2); Absolute Eosinophil Count 0.08 10^3/uL (0.0-0.7); Absolute Monocyte Count 0.38 10^3/uL (0.1-0.8); Absolute Neutrophil Count 3.73 10^3/uL (1.2-6.7); Eosinophils % 1.3; HCT 31.6 % (36.0-46.0); HGB 9.1 g/dL (11.2-15.7); Immature Grans % 0.3; Lymphocytes % 28.5; MCHC 28.8 % (32.0-36.0); MCV 70 fL (80-95); Monocytes % 6.4; Neutrophils % 62.5; Platelet Count 395 10^3/uL (130-400); RBC 4.55 10^6/uL (3.93-5.22); RDW 15.4 % (11.7-14.6); RDW-SD 38.2 fL; WBC 5.97 10^3/uL (4.4-10.8)
[2022-10-17 21:11] LABS: Iron 11 ug/dL (50-170); Total Iron Binding Capacity 470 ug/dL (250-450); Transferrin Sat 2 % (15-50)
[2022-10-17 21:24] LABS: Ferritin 5 ng/mL (8-252)
[2022-10-17 22:00] LABS: Diff Comment Diff Reviewed; Hypochromasia 2+; Microcytosis 2+; Poikilocytes 1+
== END 2022-10-17 15:47 | disposition home or self-care (01) ==
LOC: NCHCN 15:46
PROVIDERS: PCP Nurse Practitioner Family; Visit Provider Nurse Practitioner Family
DX: D50.9 Iron deficiency anemia, unspecified (principal); R07.89 Other chest pain; R13.10 Dysphagia, unspecified; K30 Functional dyspepsia; R51.9 Headache, unspecified; F41.8 Other specified anxiety disorders
CPT/HCPCS: 82728; 83540; 83550; 85025

== ENCOUNTER 2023-04-03 13:56 | Outpatient (CLI) | payer MEDICAID, SELFPAY ==
[2023-04-03 13:38] LABS: Abs Immature Grans 0.02 10^3/uL (0.0-0.06); Absolute Basophil Count 0.06 10^3/uL (0.0-0.2); Absolute Eosinophil Count 0.08 10^3/uL (0.0-0.7); Absolute Lymphocyte Count 1.53 10^3/uL (1.2-3.4); Absolute Monocyte Count 0.37 10^3/uL (0.1-0.8); Absolute Neutrophil Count 4.62 10^3/uL (1.2-6.7); Basophils % 0.9; Eosinophils % 1.2; HCT 37.6 % (36.0-46.0); Immature Grans % 0.3; Lymphocytes % 22.9; MCH 26.3 pg (27.0-33.0); MCHC 31.9 % (32.0-36.0); MCV 82 fL (80-95); MPV 9.2 fL (8.0-11.0); Monocytes % 5.5; Neutrophils % 69.2; Platelet Count 328 10^3/uL (130-400); RBC 4.57 10^6/uL (3.93-5.22); RDW 12.4 % (11.7-14.6); RDW-SD 37.4 fL; WBC 6.68 10^3/uL (4.4-10.8)
[2023-04-03 14:11] LABS: Iron 24 ug/dL (50-170); Total Iron Binding Capacity 417 ug/dL (250-450); Transferrin Sat 6 % (15-50)
[2023-04-03 14:17] LABS: Ferritin 10 ng/mL (8-252); Folate 12.1 ng/mL (8.6-20.0); Vitamin B12 262 pg/mL (193-986)
== END 2023-04-03 13:57 | disposition home or self-care (01) ==
PROVIDERS: PCP Nurse Practitioner Family; Visit Provider Nurse Practitioner Family
DX: D50.0 Iron deficiency anemia secondary to blood loss (chronic) (principal); E53.8 Deficiency of other specified B group vitamins
CPT/HCPCS: 36415; 82607; 82728; 82746; 83540; 83550; 85025

== ENCOUNTER 2023-06-23 09:26 | Outpatient (CLI) | payer MEDICAID, SELFPAY ==
[2023-06-23 08:36] LABS: Abs Immature Grans 0.01 10^3/uL (0.0-0.06); Absolute Basophil Count 0.05 10^3/uL (0.0-0.2); Absolute Lymphocyte Count 1.42 10^3/uL (1.2-3.4); Absolute Monocyte Count 0.33 10^3/uL (0.1-0.8); Absolute Neutrophil Count 2.89 10^3/uL (1.2-6.7); Eosinophils % 2.1; HGB 13.4 g/dL (11.2-15.7); Immature Grans % 0.2; Lymphocytes % 29.6; MCH 28.5 pg (27.0-33.0); MCHC 34.4 % (32.0-36.0); MCV 83 fL (80-95); MPV 9.5 fL (8.0-11.0); Monocytes % 6.9; Neutrophils % 60.2; Platelet Count 284 10^3/uL (130-400); RDW 14.7 % (11.7-14.6); RDW-SD 45.1 fL
[2023-06-23 09:09] LABS: Anion Gap 9.4 mmol/L (3-11); BUN 9 mg/dL (7-18); CO2 27.6 mmol/L (21.0-32.0); CREATININE 0.9 mg/dL (0.55-1.02); Calcium 9.1 mg/dL (8.5-10.1); Chloride 106 mmol/L (98-107); Estimated GFR 82.37 (mL/min/1.73m2); Ferritin 43 ng/mL (8-252); Glucose 101 mg/dL (74-106); Sodium 143 mmol/L (136-145); TSH 0.73 uIU/mL (0.36-3.74)
[2023-06-23 09:17] LABS: Iron 51 ug/dL (50-170); Total Iron Binding Capacity 296 ug/dL (250-450); Transferrin Sat 17 % (15-50)
[2023-06-23 09:27] LABS: FREE T4 0.97 ng/dL (0.76-1.46)
== END 2023-06-23 09:27 | disposition home or self-care (01) ==
LOC: LBO 09:26
PROVIDERS: PCP Nurse Practitioner Family; Visit Provider Nurse Practitioner Family
DX: D50.9 Iron deficiency anemia, unspecified (principal); Z51.81 Encounter for therapeutic drug level monitoring; E04.9 Nontoxic goiter, unspecified
CPT/HCPCS: 36415; 80048; 82728; 83540; 83550; 84439; 84443; 85025

== ENCOUNTER 2023-07-27 17:11 | Outpatient (REF) | payer MEDICAID, SELFPAY ==
--- NOTE | 2023-07-27 08:00 | PAPFT_PTH ---
PATIENT: Kayla Menjivar I LOC: [facility] U#:[id number] AGE/SX: 43/F ROOM: RE07/27/[address]: Radha Mike : 1980 BED: DIS: 07/27/2023 SPEC #: [id number] RECD: 07/27/23 17:38 STATUS: RONDA REThomas #: [id number] RAFA: 07/27/23 08:[address]: Radha Mike DEPT: [facility] Cytology RECD BY: Karen Tate Tissues: 1 - CX/ENDOCX FOR PAP SMEARS Procedures: PAP THIN PREP/UVM Screening HPV DNA PROBE Comments: [id number] (HPV 16 & 18/45) (CHLAMYDIA/GC)
[2023-07-28 15:03] LABS: Chlamydia Result Negative (Negative); GC Result Negative (Negative)
== END 2023-07-27 17:12 | disposition home or self-care (01) ==
LOC: LBN 17:11
PROVIDERS: PCP Nurse Practitioner Family; Referring Provider Nurse Practitioner Family; Visit Provider Nurse Practitioner Family
DX: Z12.4 Encounter for screening for malignant neoplasm of cervix; Z01.419 Encounter for gynecological examination (general) (routine) without abnormal findings
CPT/HCPCS: 87491; 87591; 88142; 87624

== ENCOUNTER 2023-09-20 04:22 | Outpatient (CLI) | payer MEDICAID, SELFPAY ==
[2023-09-20 17:00] LABS: Abs Immature Grans 0.02 10^3/uL (0.0-0.06); Absolute Basophil Count 0.05 10^3/uL (0.0-0.2); Absolute Eosinophil Count 0.05 10^3/uL (0.0-0.7); Absolute Lymphocyte Count 1.54 10^3/uL (1.2-3.4); Absolute Monocyte Count 0.39 10^3/uL (0.1-0.8); Absolute Neutrophil Count 3.19 10^3/uL (1.2-6.7); HCT 39.2 % (36.0-46.0); HGB 12.9 g/dL (11.2-15.7); Immature Grans % 0.4; Lymphocytes % 29.4; MCHC 32.9 % (32.0-36.0); MCV 85 fL (80-95); MPV 9.5 fL (8.0-11.0); Monocytes % 7.4; Neutrophils % 60.8; Platelet Count 275 10^3/uL (130-400); RDW 11.7 % (11.7-14.6); RDW-SD 36.5 fL; WBC 5.24 10^3/uL (4.4-10.8)
[2023-09-20 18:07] LABS: Iron 33 ug/dL (50-170); Total Iron Binding Capacity 357 ug/dL (250-450); Transferrin Sat 9 % (15-50)
[2023-09-20 18:20] LABS: Ferritin 13 ng/mL (8-252)
== END 2023-09-20 04:23 | disposition home or self-care (01) ==
LOC: LBO 04:23
PROVIDERS: PCP Nurse Practitioner Family; Visit Provider Internal Medicine Medical Oncology
DX: D50.0 Iron deficiency anemia secondary to blood loss (chronic) (principal)
CPT/HCPCS: 36415; 82728; 83540; 83550; 85025

== ENCOUNTER 2023-10-02 15:43 | Outpatient (REF) | payer MEDICAID, SELFPAY ==
[2023-10-02 21:15] LABS: Calculated LDL 63 mg/dL (<100); Cholesterol 134 mg/dL (<200); HDL Cholesterol 66 mg/dL (40-60); Triglyceride 26 mg/dL (<150)
[2023-10-04 08:29] LABS: Hepatitis C Ab w Rflx HCV PCR Negative (Negative)
[2023-10-04 09:17] LABS: Syphilis Serology (RPR) Negative (Negative)
[2023-10-04 09:59] LABS: HIV-1/2 Ag & Ab Screen Negative (Negative)
== END 2023-10-02 15:44 | disposition home or self-care (01) ==
LOC: NCHCN 15:43
PROVIDERS: PCP Nurse Practitioner Family; Visit Provider Nurse Practitioner Family
DX: Z11.59 Encounter for screening for other viral diseases (principal)
CPT/HCPCS: 80061; 86803; 87389; 86592

== ENCOUNTER 2023-10-10 08:02 | Emergency (ER) | payer MEDICAID, SELFPAY ==
[2023-10-10] VITALS (26 sets, daily range): BP systolic 109–143; BP diastolic 60–83; PULSE 91–106; RESP 12–23; TEMP 36.9; O2SAT 98–100
--- NOTE | 2023-10-10 08:10 | ED.GENADUL_ITS ---
Discharge Plan Disposition Patient Disposition: Home Condition: Stable Discharge Details Clinical Impression: Nausea & vomiting Primary Care Provider: Radha Mike ED Provider: Karen Jerome Home Meds and New Rx's Prescriptions: New ondansetron 4 mg tablet,disintegrating 4 mg PO DAILY PRN5 Days Qty: 10 0RF hyoscyamine sulfate [Levsin] 0.125 mg tablet 0.125 mg PO BID-QID PRNQty: 5 0RF Continued diclofenac potassium 50 mg tablet 50 mg PO TID PRNQty: 15 0RF lisdexamfetamine [Vyvanse] 20 mg capsule 30 mg PO DAILY Patient Comments: TAKE ONE CAPSULE BY MOUTH EVERY MORNING lamotrigine 100 mg tablet 100 mg PO DAILY Discharge Instructions Instructions: Acute Nausea and Vomiting (ED) Additional Instructions: Take the Zofran as needed for nausea and vomiting 4 mg every 8 hours Take the Levsin as needed for abdominal cramping, try to take the potassium and wait 8 hours before taking the Levsin as they interact negatively Clear liquid diet until you are able to regularly tolerate clear liquids without nausea and then you may incorporate bland diet Please return earlier should you have new or worsening complaints Referrals: Radha Mike [Primary Care Provider] - 2 days HPI General Date/Time Provider Initiated Documentation: 10/10/23 08:12 . HPI Narrative: This 43-year-old female presents with report of nausea, vomiting, abdominal pain. She states she has been sick for about 2 days. Her child was sick with similar symptoms several days ago. Has had cough. Denies any fever or diarrhea. States she has had copious vomiting since last evening. Denies history of alcohol use or any risk of . States scant blood in vomitus only after many episodes of vomiting likely secondary to irritation Related Data Home Medications Medication Instructions Recorded Confirmed lamotrigine 100 mg tablet 100 mg PO DAILY 10/28/20 10/10/23 diclofenac potassium 50 mg tablet 50 mg PO TID PRN #15 tabs 01/04/22 10/10/23 hyoscyamine sulfate 0.125 mg 0.125 mg PO BID-QID PRN #5 tabs 10/10/23 tablet (Levsin) lisdexamfetamine 20 mg capsule 30 mg PO DAILY 10/10/23 10/10/23 (Vyvanse) ondansetron 4 mg disintegrating 4 mg PO DAILY PRN 5 days #10 tabs 10/10/23 tablet Previous Rx's Medication Instructions Recorded diclofenac potassium 50 mg tablet 50 mg PO TID PRN #15 tabs 01/04/22 hyoscyamine sulfate 0.125 mg 0.125 mg PO BID-QID PRN #5 tabs 10/10/23 tablet (Levsin) ondansetron 4 mg disintegrating 4 mg PO DAILY PRN 5 days #10 tabs 10/10/23 tablet Allergies Allergy/AdvReac Type Severity Reaction Status Date / Time morphine Allergy Severe Difficulty Unverified 10/10/23 09:28 Breathing, Hives acetaminophen [From Percocet] Allergy Hives Verified 10/10/23 09:28 oxycodone Allergy Itching Unverified 10/10/23 09:28 oxybutynin AdvReac Severe STOPPED Unverified 10/10/23 09:28 ME FROM URINATING tramadol AdvReac Intermediate BRUISES Unverified 10/10/23 09:28 UNDER SKIN General Stated Complaint: Abd Prob CIRO: 3 Exam Narrative Exam Narrative: Alert and oriented female, moist mucous membranes, no icterus, no respiratory distress, cardiac rate and rhythm regular, mild diffuse abdominal tenderness without rebound or guarding, no jaundice but pallor present, Course Vital Signs Vital signs: Vital Signs Temperature 36.9 C 10/10/23 08:04 Pulse 106 H 10/10/23 08:04 Blood Pressure 143/78 H 10/10/23 08:04 Pulse Oximetry 100 10/10/23 08:04 Temperature 36.9 C 10/10/23 08:04 Temperature Source Temporal Artery Scan 10/10/23 08:04 Pulse 106 H 10/10/23 08:04 Respiratory Effort Normal, Non-Labored 10/10/23 08:08 Blood Pressure 143/78 H 10/10/23 08:04 Blood Pressure Position Sitting 10/10/23 08:04 Pulse Oximetry 100 10/10/23 08:04 Oxygen Delivery Method Room Air 10/10/23 08:04 Oxygen Flow Rate 0 10/10/23 08:04 Medical Decision Making 43-year-old female presenting with abdominal pain nausea and vomiting for the past 48 hours, feeling dehydrated. Diagnostic labs ordered for further evaluation, hypokalemia at 2.9, given 10 mEq of IV potassium and 40 mEq of p.o. potassium, EKG without any QTc abnormalities. Patient on reassessment is able to tolerate p.o., Fluvid negative. Patient feels symptomatically improved, able to tolerate p.o. and is requesting discharge home. Will give prescription for Levsin which patient will not take within 8 hours of the potassium and Zofran as needed for nausea and vomiting. We discussed clear liquid diet and when to transition to bland diet. Abdominal exam is benign at time of reassessment and I think patient is stable for discharge home. Patient denies any urinary symptoms at time of reassessment will return should she have new or worsening complaints. Serum negative. Quality:SDOH Health Related Social Needs: No Data to Display PFSH All Active Problems (Updated 10/10/23 @ 11:11 by HUMBLE Braxton) Nausea & vomiting (Acute) No-show for appointment (Acute) Chondromalacia of left patella (Acute) Abdominal pain (Acute) Bilateral kidney stones (Acute) Cyst of right kidney (Acute) Calculus of left ureter (Acute) Medical History Anxiety Iron deficiency anemia Schatzki's ring of distal esophagus Surgical History H/O arthroscopic knee surgery H/O laparoscopy History of section History of surgery Bilateral renal stents Hx of tubal ligation Social History Smoking/Tobacco Use Status: Never Smoking risk assessment performed?: Yes Alcohol Intake: never Drug use: Never Substance use type: does not use Current gender identity: female Do you feel safe at home: Yes Do you feel safe in your relationship?: Yes
[2023-10-10 08:39] LABS: Abs Immature Grans 0.03 10^3/uL (0.0-0.06); Absolute Basophil Count 0.01 10^3/uL (0.0-0.2); Absolute Lymphocyte Count 0.26 10^3/uL (1.2-3.4); Absolute Neutrophil Count 7.48 10^3/uL (1.2-6.7); Basophils % 0.1 %; HCT 38.7 % (36.0-46.0); HGB 12.9 g/dL (11.2-15.7); Immature Grans % 0.4 %; Lymphocytes % 3.2 %; MCH 27.7 pg (27.0-33.0); MCHC 33.3 % (32.0-36.0); MCV 83 fL (80-95); MPV 9.4 fL (8.0-11.0); Monocytes % 4.9 %; Neutrophils % 91.4 %; Platelet Count 251 10^3/uL (130-400); RBC 4.66 10^6/uL (3.93-5.22); RDW 12.2 % (11.7-14.6); RDW-SD 36.9 fL; WBC 8.18 10^3/uL (4.4-10.8)
[2023-10-10] MEDS: Ondansetron 4 MG/2 ML VIAL IVP ×2 (08:45→09:34)
[2023-10-10] MEDS: Famotidine 20 MG/2 ML VIAL IVP (08:46)
[2023-10-10] MEDS: Normal Saline 1,000 ML 1000 ML IV ×3 (08:48→11:06)
[2023-10-10 08:57] LABS: ALT 19 U/L (14-59); AST 9 U/L (15-37); Albumin 3.9 g/dL (3.4-5.0); Alkaline Phosphatase 43 U/L (46-116); Anion Gap 10.8 mmol/L (3-11); BUN 16 mg/dL (7-18); Bilirubin, Total 0.5 mg/dL (0.2-1.0); CO2 26.2 mmol/L (21.0-32.0); CREATININE 0.9 mg/dL (0.55-1.02); Calcium 8.5 mg/dL (8.5-10.1); Chloride 106 mmol/L (98-107); Estimated GFR 82.37 (mL/min/1.73m2); Glucose 134 mg/dL (74-106); Lipase 49 U/L (16-77); Sodium 143 mmol/L (136-145); Total Protein 7.1 g/dL (6.4-8.2)
[2023-10-10 09:00] LABS: Potassium 2.9 mmol/L (3.5-5.1)
--- NOTE | 2023-10-10 09:00 | RT.EKG_ITS ---
APPROVED REPORT Exam: Resting ECG Reason for Exam: low pottasium Patient Location: E HR:91 bpm ECG Measurements Heart Rate 91 AXIS MT 171 P 65 QRSd 91 QRS 65 QT 355 T -13 QTc 438 Conclusion Sinus rhythm...normal P axis, V-rate 60- 99 Probable left atrial enlargement...P >50mS, <-0.10mV V1 sinus rhtyhm, normal axis, normal intervals, non ischemic
[2023-10-10] MEDS: Hyoscyamine 0.5 MG/ML VIAL 0.25 MG IVP (09:08)
[2023-10-10 09:10] LABS: HCG Qual (Serum) Negative
[2023-10-10] MEDS: Ketorolac 15 MG/ML VIAL IVP (10:14)
[2023-10-10] MEDS: POTASSIUM CHLORIDE 10 MEQ/100 ML BAG 100 MEQ IVINF (10:15)
[2023-10-10 11:23] LABS: COVID-19 PCR Negative (Negative); Influenza A PCR Negative (Negative); Influenza B PCR Negative (Negative); RSV PCR Negative (Negative)
[2023-10-10 11:25] LABS: Source Nasopharynx
== END 2023-10-10 11:35 | disposition home or self-care (01) ==
PROVIDERS: Emergency Provider Physician Assistant; PCP Nurse Practitioner Family
DX: R11.2 Nausea with vomiting, unspecified (principal); R10.9 Unspecified abdominal pain; E87.6 Hypokalemia
CPT/HCPCS: 36415; 80053; 83690; 87637; 93005; 96361; 96365; 96375; 96376; 99284; 84703; 85025; 93010; 99283; J1885; J1980; J2405; J3480

== ENCOUNTER 2024-02-19 04:47 | Outpatient (CLI) | payer MEDICAID, SELFPAY ==
[2024-02-19 08:48] LABS: Abs Immature Grans 0.02 10^3/uL (0.0-0.06); Absolute Basophil Count 0.05 10^3/uL (0.0-0.2); Absolute Eosinophil Count 0.12 10^3/uL (0.0-0.7); Absolute Lymphocyte Count 1.39 10^3/uL (1.2-3.4); Absolute Monocyte Count 0.58 10^3/uL (0.1-0.8); Absolute Neutrophil Count 5.21 10^3/uL (1.2-6.7); Basophils % 0.7 %; Eosinophils % 1.6 %; HCT 41.1 % (36.0-46.0); HGB 13.5 g/dL (11.2-15.7); Immature Grans % 0.3 %; Lymphocytes % 18.9 %; MCH 29.7 pg (27.0-33.0); MCHC 32.8 % (32.0-36.0); MCV 90 fL (80-95); MPV 9.4 fL (8.0-11.0); Monocytes % 7.9 %; Neutrophils % 70.6 %; Platelet Count 246 10^3/uL (130-400); RBC 4.55 10^6/uL (3.93-5.22); RDW 12.9 % (11.7-14.6); RDW-SD 42.5 fL; WBC 7.37 10^3/uL (4.4-10.8)
[2024-02-19 09:15] LABS: Iron 37 ug/dL (50-170); Total Iron Binding Capacity 369 ug/dL (250-450); Transferrin Sat 10 % (15-50)
[2024-02-19 09:29] LABS: Ferritin 15 ng/mL (8-252)
== END 2024-02-19 04:48 | disposition home or self-care (01) ==
LOC: LBO 04:48
PROVIDERS: PCP Nurse Practitioner Family; Visit Provider Internal Medicine Medical Oncology
DX: D50.0 Iron deficiency anemia secondary to blood loss (chronic) (principal)
CPT/HCPCS: 36415; 82728; 83540; 83550; 85025

== ENCOUNTER 2024-03-31 09:40 | Emergency (ER) | payer MEDICAID, SELFPAY ==
--- NOTE | 2024-03-31 09:42 | ED.GENADUL_ITS ---
Discharge Plan Disposition Patient Disposition: Home Discharge Details Clinical Impression: Traumatic ecchymosis of right foot Primary Care Provider: Radha Mike ED Provider: Chin Lou Home Meds and New Rx's Prescriptions: Continued lisdexamfetamine [Vyvanse] 20 mg capsule 30 mg PO DAILY Patient Comments: TAKE ONE CAPSULE BY MOUTH EVERY MORNING hyoscyamine sulfate [Levsin] 0.125 mg tablet 0.125 mg PO BID-QID PRNQty: 5 0RF lamotrigine 100 mg tablet 100 mg PO DAILY buspirone 10 mg tablet 10 mg PO DAILY Patient Comments: TAKE ONE TABLET BY MOUTH THREE TIMES A DAY NEEDED Discharge Instructions Instructions: Minor Contusion ED Additional Instructions: You are seen in the emergency department for your foot pain. Your x-ray showed no sign of any fractures. As we discussed if your pain worsens please return to the ED. Otherwise please follow-up as needed primary care provider. For your pain please take medications as follows: 1. Take acetaminophen (Tylenol), 1,000 mg (two 500 mg tabs) every 6 hours [2. Take ibuprofen (Advil), 400 mg every 6 hours.] Discharge Data Discharge Date/Time-TO BE ENTERED AT DEPARTURE: 03/31/24 12:38 HPI General Date/Time Provider Initiated Documentation: 03/31/24 09:42 . HPI Narrative: MDM This is an overall well-appearing normothermic and not tachycardic 43-year-old female with right foot pain ecchymosis and trauma concerning for the possibility of fracture for which she will undergo plain films. No pain or proportion to suggest necrotizing soft tissue infection. No significant erythema to suggest cellulitis. No fluctuance to suggest abscess. No joint effusion to suggest septic joint. No calf pain to suggest DVT. No history of gouty arthritis to suggest benefit from arthrocentesis. No midfoot instability to suggest Lisfranc injury. No lateral foot tenderness to suggest Reilly fracture. No history of axial loading to suggest increased risk for talar fracture. Right foot warm well-perfused so I am not concerned for critical limb ischemia so I do not feel the patient requires a CT angiogram of her lower extremities 12:24 PM Virtual radiology read with no acute fractures. I met with the patient. She has a walking boot. I explained that if her symptoms worsened or did not improve that she should return to the ED. Otherwise I advised PCP follow-up. HPI This is a 43-year-old female arrived to the emergency department via private vehicle in setting of right foot pain. Patient reports that yesterday she was doing some rearranging at home and she inadvertently dropped a large piece of wood from a end table on her right foot. She has pain in the top of her right foot. She has pain with bearing weight. She does not take any anticoagulants. She denies any head strike and falls. Exam General: Well-appearing in no acute distress speaking in complete sentences. Head: Normocephalic, atraumatic. Eye: Extraocular eye movements intact. No conjunctival injection. No scleral icterus. Ear, nose, mouth, throat: Grossly normal inspection. Normal voice, handling secretions normally. Neck: Trachea midline. Cardiovascular: Well-perfused distal extremities. Respiratory: Nonlabored respiration. Gastrointestinal: Nondistended abdomen. Musculoskeletal: Right lower extremity: Nontender knee tibia ankle full range of motion. Right foot has ecchymosis primarily on the medial and dorsal aspect. Patient has diffuse tenderness throughout her metatarsal heads on the right. No midfoot instability. 2 out of 5 strength dorsi and plantarflexion limited secondarily by pain. 2+ PT and DP pulses. Cap refill less than 2 seconds in the right toes. No calcaneal nail or talar tenderness. No joint effusion. No lacerations. Skin: Normal for age and race, grossly normal temperature and turgor. No acute rash. Neurologic: Alert and appropriate, no apparent acute deficits. GCS 15. Psychiatric: Mood and manner are appropriate. Grooming and personal hygiene are appropriate. Related Data Home Medications ?Medication ?Instructions ?Recorded ?Confirmed lamotrigine 100 mg tablet 100 mg PO DAILY 10/28/20 03/31/24 hyoscyamine sulfate 0.125 mg 0.125 mg PO BID-QID PRN #5 tabs 10/10/23 03/31/24 tablet (Levsin) lisdexamfetamine 20 mg capsule 30 mg PO DAILY 10/10/23 03/31/24 (Vyvanse) buspirone 10 mg tablet 10 mg PO DAILY 03/31/24 03/31/24 Previous Rx's ?Medication ?Instructions ?Recorded hyoscyamine sulfate 0.125 mg 0.125 mg PO BID-QID PRN #5 tabs 10/10/23 tablet (Levsin) Allergies Allergy/AdvReac Type Severity Reaction Status Date / Time morphine Allergy Severe Difficulty Unverified 03/31/24 09:49 Breathing, Hives acetaminophen (From Percocet) Allergy Hives Verified 03/31/24 09:49 oxycodone Allergy Itching Unverified 03/31/24 09:49 oxybutynin AdvReac Severe STOPPED Unverified 03/31/24 09:49 ME FROM URINATING tramadol AdvReac Intermediate BRUISES Unverified 03/31/24 09:49 UNDER SKIN General CIRO: 3 Medical Decision Making Quality:SDOH Health Related Social Needs: No Data to Display PFSH All Active Problems (Updated 03/31/24 @ 12:22 by Chin Lou MD) Traumatic ecchymosis of right foot (Acute) No-show for appointment (Acute) Chondromalacia of left patella (Acute) Abdominal pain (Acute) Bilateral kidney stones (Acute) Cyst of right kidney (Acute) Calculus of left ureter (Acute) Medical History Anxiety Iron deficiency anemia Schatzki's ring of distal esophagus Surgical History H/O arthroscopic knee surgery H/O laparoscopy History of section History of surgery Bilateral renal stents Hx of tubal ligation Social History Smoking/Tobacco Use Status: Never Smoking risk assessment performed?: Yes Alcohol Intake: never Drug use: Never Substance use type: does not use Current gender identity: female Do you feel safe at home: Yes Do you feel safe in your relationship?: Yes
[2024-03-31 09:45] VITALS: BP 143/89; PULSE 89; RESP 15; O2SAT 99
--- NOTE | 2024-03-31 09:45 | DI.RAD_ITS ---
Exam(s) XR FOOT RT COMPLETE EXAM: XR FOOT RT COMPLETE CLINICAL HISTORY: r foot pain. TECHNIQUE: 2D digital imaging was performed. COMPARISON: CR,XR XR FOOT LT COMPLETE from 01/04/2022 FINDINGS: 3 views No evidence of acute fracture or diastasis of the Lisfranc joint. Bone density normal. No osseous l esions. No radiopaque foreign bodies. No pes planus. IMPRESSION: No acute osseous findings in the foot. DATA REPOSITORY: RADIATION DOSE DELIVERED:
[2024-03-31] MEDS: Ibuprofen 600 MG TAB PO (09:58)
[2024-03-31] MEDS: Acetaminophen 500 MG TAB 1000 MG PO (09:58)
[2024-03-31 10:02] VITALS: TEMP 36.8
--- NOTE | 2024-03-31 12:12 | DI.VRAD_ITS ---
PROCEDURE INFORMATION: Exam: XR Right Foot Exam date and time: 03/31/2024 12:01 PM Age: 43 years old Clinical indication: Other: R foot pain TECHNIQUE: Imaging protocol: Radiologic exam of the right foot. Views: 3 or more views. COMPARISON: No relevant prior studies available. FINDINGS: Bones/joints: Normal. Soft tissues: Normal. IMPRESSION: No acute fracture or dislocation. Dictated and Authenticated by: Rafat Hodge MD. Ordering:NEEMA Neely MD
== END 2024-03-31 12:38 | disposition home or self-care (01) ==
PROVIDERS: Emergency Provider Emergency Medicine; PCP Nurse Practitioner Family
DX: S90.31XA Contusion of right foot, initial encounter (principal); W20.8XXA Other cause of strike by thrown, projected or falling object, initial encounter
CPT/HCPCS: 99283; 73630

== ENCOUNTER 2024-06-10 03:55 | Outpatient (CLI) | payer MEDICAID, SELFPAY ==
[2024-06-10 11:17] LABS: Abs Immature Grans 0.03 10^3/uL (0.0-0.06); Absolute Basophil Count 0.05 10^3/uL (0.0-0.2); Absolute Eosinophil Count 0.07 10^3/uL (0.0-0.7); Absolute Lymphocyte Count 1.25 10^3/uL (1.2-3.4); Absolute Neutrophil Count 5.66 10^3/uL (1.2-6.7); Basophils % 0.7 %; Eosinophils % 0.9 %; HCT 40.8 % (36.0-46.0); Immature Grans % 0.4 %; Lymphocytes % 16.8 %; MCH 30.2 pg (27.0-33.0); MCHC 34.3 % (32.0-36.0); MCV 88 fL (80-95); MPV 9.2 fL (8.0-11.0); Monocytes % 5.4 %; Neutrophils % 75.8 %; Platelet Count 264 10^3/uL (130-400); RBC 4.63 10^6/uL (3.93-5.22); RDW 13.2 % (11.7-14.6); RDW-SD 42.8 fL; WBC 7.46 10^3/uL (4.4-10.8)
[2024-06-10 11:39] LABS: Ferritin 40 ng/mL (8-252); Iron 127 ug/dL (50-170); Total Iron Binding Capacity 343 ug/dL (250-450); Transferrin Sat 37 % (15-50)
== END 2024-06-10 03:56 | disposition home or self-care (01) ==
PROVIDERS: Internal Medicine Medical Oncology; PCP Nurse Practitioner Family; Visit Provider Nurse Practitioner Family
DX: D50.0 Iron deficiency anemia secondary to blood loss (chronic) (principal)
CPT/HCPCS: 36415; 82728; 83540; 83550; 85025

== ENCOUNTER 2024-06-20 20:01 | Outpatient (REF) | payer MEDICAID, SELFPAY ==
[2024-06-20 15:58] LABS: TSH (W/Ref FT4) 0.79 uIU/mL (0.36-3.74)
== END 2024-06-20 20:02 | disposition home or self-care (01) ==
LOC: NCHCN 20:01
PROVIDERS: PCP Nurse Practitioner Family; Visit Provider Nurse Practitioner Family
DX: E04.9 Nontoxic goiter, unspecified (principal)
CPT/HCPCS: 84443

== ENCOUNTER 2024-06-25 01:32 | Outpatient (CLI) | payer MEDICAID, SELFPAY ==
--- NOTE | 2024-06-25 | DI.RAD_ITS ---
Exam(s) XR KNEE RT 4V+ EXAM: XR KNEE RT 4V+ CLINICAL HISTORY: PAIN OF R KNEE JOINT, M25.561. TECHNIQUE: 2D digital imaging was performed. COMPARISON: CR,XR XR FEMUR LT from 01/04/2022 CR,XR XR KNEE LT 3V AP,LAT,SUGEY from 01/04/2022 FINDINGS: Four views No evidence of fracture nor joint effusion. There is advanced narrowing of the medial aspect of the patellofemoral compartment. Also slightly hi gh-riding patella, seen on the lateral view. There are mild degenerative changes medial compartment. Lateral compartment appears unremarkable. B one density normal. No osseous lesions. IMPRESSION: Degenerative changes, most prominent in the patellofemoral compartment. DATA REPOSITORY: RADIATION DOSE DELIVERED:
== END 2024-06-25 01:52 ==
LOC: DI 01:32
PROVIDERS: PCP Nurse Practitioner Family; Visit Provider Nurse Practitioner Family
DX: M25.561 Pain in right knee (principal)
CPT/HCPCS: 73564

== ENCOUNTER 2024-09-17 13:15 | Outpatient (REF) | payer MEDICAID, SELFPAY ==
--- NOTE | 2024-09-17 12:30 | PAPFT_PTH ---
PATIENT: Kayla Menjivar I LOC: [facility] U#:[id number] AGE/SX: 44/F ROOM: RE09/17/[address]: Radha Mike : 1980 BED: DIS: 09/17/2024 SPEC #: [id number] RECD: 09/18/24 12:58 STATUS: RONDA REThomas #: [id number] RAFA: 09/17/24 12:[address]: Radha Mike DEPT: [facility] Cytology RECD BY: Karen Tate Tissues: 1 - CX/ENDOCX FOR PAP SMEARS Procedures: PAP THIN PREP/[facility] Screening HPV DNA PROBE Comments: [id number] (HPV 16 & 18/45)
== END 2024-09-17 13:16 | disposition home or self-care (01) ==
LOC: LBN 13:15
PROVIDERS: PCP Nurse Practitioner Family; Visit Provider Nurse Practitioner Family
DX: Z12.4 Encounter for screening for malignant neoplasm of cervix (principal); R87.610 Atypical squamous cells of undetermined significance on cytologic smear of cervix (ASC-US)
CPT/HCPCS: 88142; 87624

== ENCOUNTER 2024-09-24 03:50 | Outpatient (CLI) | payer MEDICAID, SELFPAY ==
[2024-09-24 12:35] LABS: Abs Immature Grans 0.02 10^3/uL (0.0-0.06); Absolute Basophil Count 0.03 10^3/uL (0.0-0.2); Absolute Eosinophil Count 0.05 10^3/uL (0.0-0.7); Absolute Lymphocyte Count 1.26 10^3/uL (1.2-3.4); Absolute Monocyte Count 0.41 10^3/uL (0.1-0.8); Basophils % 0.5 %; Eosinophils % 0.8 %; HCT 36.3 % (36.0-46.0); HGB 11.4 g/dL (11.2-15.7); Immature Grans % 0.3 %; Lymphocytes % 19.5 %; MCH 26.8 pg (27.0-33.0); MCHC 31.4 % (32.0-36.0); MCV 85 fL (80-95); MPV 9.3 fL (8.0-11.0); Monocytes % 6.3 %; Neutrophils % 72.6 %; Platelet Count 233 10^3/uL (130-400); RBC 4.25 10^6/uL (3.93-5.22); RDW-SD 37.2 fL; WBC 6.47 10^3/uL (4.4-10.8)
[2024-09-24 12:39] LABS: ESR 2 mm/hr (0-20)
[2024-09-24 13:13] LABS: Iron 15 ug/dL (50-170); Total Iron Binding Capacity 418 ug/dL (250-450); Transferrin Sat 4 % (15-50)
[2024-09-24 13:17] LABS: Ferritin 7 ng/mL (8-252)
[2024-09-24 15:08] LABS: ALT 17 U/L (14-59); AST 10 U/L (15-37); Albumin 3.9 g/dL (3.4-5.0); Alkaline Phosphatase 54 U/L (46-116); BUN 13 mg/dL (7-18); Bilirubin, Total 0.3 mg/dL (0.2-1.0); CREATININE 0.8 mg/dL (0.55-1.02); Calcium 9.3 mg/dL (8.5-10.1); Chloride 106 mmol/L (98-107); Estimated GFR 94.28 (mL/min/1.73m2); Glucose 91 mg/dL (74-106); Potassium 3.8 mmol/L (3.5-5.1); Sodium 141 mmol/L (136-145); Total Protein 6.6 g/dL (6.4-8.2)
[2024-09-24 15:15] LABS: C-Reactive Protein < 0.50 mg/dL (<or=0.5)
[2024-09-24 21:51] LABS: Rheumatoid Factor <8.6 IU/mL (<12.0)
[2024-09-25 09:14] LABS: Cyclic Citrullinated Peptide <2.5 U/mL (<5.0)
[2024-09-25 14:12] LABS: ANA Interpretation Negative (Negative)
[2024-09-25 15:59] LABS: Lyme Ab w Rflx to Lyme Confirm Negative (Negative)
[2024-09-27 00:25] LABS: Anaplasma phagocytophilum Negative (Negative); B. miyamotoi PCR Negative (Negative); Babesia divergens/MO-1 Negative (Negative); Babesia duncani Negative (Negative); Babesia microti Negative (Negative); Ehrlichia chaffeensis Negative (Negative); Ehrlichia ewingii/canis Negative (Negative); Ehrlichia muris eauclairensis Negative (Negative)
== END 2024-09-24 03:51 | disposition home or self-care (01) ==
PROVIDERS: PCP Nurse Practitioner Family; Visit Provider Nurse Practitioner Family
DX: D50.0 Iron deficiency anemia secondary to blood loss (chronic) (principal)
CPT/HCPCS: 36415; 80053; 85652; 86200; 87798; 82728; 83540; 83550; 85025; 86038; 86140; 86431; 86618

== ENCOUNTER 2025-04-18 02:38 | Outpatient (CLI) | payer MEDICAID, SELFPAY ==
[2025-04-18 09:14] LABS: HCT 36.7 % (36.0-46.0); HGB 11.8 g/dL (11.2-15.7); MCH 25.9 pg (27.0-33.0); MCHC 32.2 % (32.0-36.0); MCV 81 fL (80-95); MPV 9.5 fL (8.0-11.0); Platelet Count 247 10^3/uL (130-400); RBC 4.56 10^6/uL (3.93-5.22); RDW 12.2 % (11.7-14.6); RDW-SD 35.2 fL; WBC 4.95 10^3/uL (4.4-10.8)
[2025-04-18 09:55] LABS: Ferritin 8 ng/mL (7-271)
[2025-04-18 10:00] LABS: Iron 111 ug/dL (50-170)
[2025-04-18 10:01] LABS: Total Iron Binding Capacity 424 ug/dL (250-425); Transferrin Sat 26 % (15-50)
== END 2025-04-18 02:39 | disposition home or self-care (01) ==
LOC: LBO 02:38
PROVIDERS: PCP Nurse Practitioner Family; Visit Provider Nurse Practitioner Family
DX: E61.1 Iron deficiency (principal)
CPT/HCPCS: 36415; 85027; 82728; 83540; 83550